=== PATIENT | female | born 1970 | race American Indian/Alaskan Native ===

== ENCOUNTER 2017-02-24 19:34 | Emergency (ER) | payer MEDICAID ==
[2017-02-24 19:44] VITALS: BP 156/92
[2017-02-24] MEDS ORDERED: Ketorolac 30 MG/ML SDV IM ONE (19:56)
[2017-02-24 20:07] LABS: CHLORIDE,CL 100 mmol/L (98-109); SODIUM,NA 142 mmol/L (138-146)
--- NOTE | 2017-02-24 20:07 | EDM.PDOC ---
ED HPI GENERAL MEDICAL PROBLEM - General Chief Complaint: Back Pain or Injury Stated Complaint: BACK AND NECK PAIN Time Seen by Provider: 02/24/17 19:45 Source of Information: Reports: Patient History Limitations: Reports: No Limitations - History of Present Illness INITIAL COMMENTS - FREE TEXT/NARRATIVE: This 46 yo female patient reports to the ED with increased lower back pain. The patient reports her back pain increased on Wednesday and has been getting worse. The patient has been taking her Hydrocodone (last dose 10 hours ago), gabapentin and muscle relaxer with no symptom relief. The patient reports her pain is 10/10 radiating to both lower extremities and up her spine to her neck. The patient reports she attempted to get into her primary provider, but could not get in until next week. Onset Date: 02/20/17 Duration: Constant, Getting Worse Location: Reports: Lower Extremity, Right, Radiates to (legs and upper back) Quality: Reports: Ache, Sharp Severity: Severe Improves with: Reports: None Worsens with: Reports: Movement Context: Reports: Other Associated Symptoms: Reports: No Other Symptoms Treatments [employer]ELOPMENT: Reports: Other Medication(s) Lower Back Pain Score (Numeric/FACES): 10 - Related Data Allergies Allergy/AdvReac Type Severity Reaction Status Date / Time levonorgestrel Allergy Cannot Verified 02/24/17 19:43 Remember mint chocolate chip flavor Allergy Swelling Uncoded 02/24/17 19:43 seasonal Allergy Cannot Uncoded 02/24/17 19:43 Remember Home Meds: Home Meds Insulin Glarg,Human.Rec.Analog [Lantus Solostar] 43 units SQ BID 10/26/13 [ History] Acetaminophen [Tylenol Extra Strength] 1,000 mg PO Q6H PRN 11/17/14 [History] Albuterol [Proventil] 3 ml INH QID PRN 11/17/14 [History] Albuterol/Ipratropium [Combivent] 1 puff INH Q4H PRN 11/17/14 [History] Aspirin 325 mg PO DAILY 11/17/14 [History] Budesonide/Formoterol [Symbicort 80-4.5 MCG] 2 puff INH DAILY 11/17/14 [History] EPINEPHrine [Epipen] 0.3 ml SUBCUT ASDIRECTED PRN 11/17/14 [History] Fluticasone Propionate [Flonase] 2 sprays NASBOTH DAILY 11/17/14 [History] Ibuprofen 800 mg PO ASDIRECTED PRN 11/17/14 [History] Insulin Lispro [HumaLOG] 2 units SUBCUT ASDIRECTED PRN 11/17/14 [History] Lactobacillus Acidophilus [Probiotic] 1 tab PO DAILY 11/17/14 [History] Pantoprazole [Protonix] 40 mg PO DAILY 11/17/14 [History] tiZANidine [Zanaflex] 4 mg PO Q8HR PRN 02/20/15 [History] DULoxetine [Cymbalta] 120 mg PO DAILY 08/01/15 [History] Gabapentin [Neurontin] 400 mg PO TID 08/01/15 [History] Pravastatin [Pravachol] 20 mg PO BEDTIME 08/01/15 [History] buPROPion [Wellbutrin] 50 mg PO BID 08/01/15 [History] Hydrocodone/Acetaminophen [Hydrocodon-Acetaminophen 5-325] 1 tab PO Q6HR PRN [History] Zolpidem [Ambien] 1 tab PO BEDTIME PRN 12/15/15 [History] metFORMIN [Glucophage XR] 1,000 mg PO BIDAC 12/15/15 [History] Liraglutide [Victoza] 1.2 mg SUBCUT DAILY 03/16/16 [History] Past Medical History HEENT History: Reports: Impaired Vision Cardiovascular History: Reports: High Cholesterol, Hypertension, [place] Respiratory History: Reports: COPD, Sleep Apnea Other Respiratory History: uses c-pap at home. 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 Musculoskeletal History: Reports: Arthritis, Back Pain, Chronic, Other (See Below) Other Musculoskeletal History: Neck and back Neurological History: Reports: CVA, Migraines, Neuropathy, Diabetic Psychiatric History: Reports: Anxiety, Depression, Panic Attack, Suicide Attempt Endocrine/Metabolic History: Reports: Diabetes, Type II, Obesity/BMI 30+ Hematologic History: Reports: Anemia - Infectious Disease History Infectious Disease History: Reports: MRSA - Past Surgical History Female Surgical History: Reports: D&C Social & Family History - Tobacco Use Smoking Status *Q: Never Smoker Years of Tobacco use: 23 Used Tobacco, but Quit: No Second Hand Smoke Exposure: No - Caffeine Use Caffeine Use: Reports: Coffee - Alcohol Use Days Per Week of Alcohol Use: 0 - Recreational Drug Use Recreational Drug Use: No Drug Use in Last 12 Months: Yes Recreational Drug Type: Reports: Benzodiazepines ED ROS GENERAL - Review of Systems Review Of Systems: ROS reveals no pertinent complaints other than HPI. ED EXAM,LOWER BACK PAIN/INJURY - Physical Exam Exam: See Below Exam Limited By: No Limitations General Appearance: Alert, WD/WN, Moderate Distress, Obese (morbid obesity) Eye Exam: Bilateral Eye: EOMI, Normal Inspection, PERRL Ears: Normal External Exam, Normal Canal, Hearing Grossly Normal, Normal TMs Nose: Normal Inspection, Normal Mucosa, No Blood Throat/Mouth: Normal Inspection, Normal Lips, Normal Teeth, Normal Gums, Normal Oropharynx, Normal Voice, No Airway Compromise Head: Atraumatic, Normocephalic Neck: Normal Inspection, Supple, Non-Tender, Full Range of Motion Respiratory/Chest: No Respiratory Distress, Lungs Clear, Normal Breath Sounds, No Accessory Muscle Use, Chest Non-Tender Cardiovascular: Normal Peripheral Pulses, Regular Rate, Rhythm, No Edema, No Gallop, No JVD, No Murmur, No Rub GI/Abdominal: Normal Bowel Sounds, Soft, Non-Tender, No Organomegaly, No Abnormal Bruit, No Mass, Pelvis Stable, Distended, Other (morbid obesity) (Female) Exam: Deferred Rectal (Female) Exam: Deferred Back Exam: Normal Inspection, Full Range of Motion, NT Extremities: Normal Inspection Neurological: Alert, Normal Mood/Affect, Normal Dorsiflexion, CN II-XII Intact, Normal Plantar Flexion, Normal Gait, Normal Reflexes, No Motor/Sensory Deficits , Oriented x 3 Psychiatric: Normal Affect, Normal Mood Skin Exam: Warm, Dry, Intact, Normal Color, No Rash Lymphatic: No Adenopathy Course - Vital Signs Last Recorded V/S: Last Vital Signs Temp 36.7 C 02/24/17 19:43 Pulse 103 H 02/24/17 19:43 Resp 24 H 02/24/17 19:43 BP 156/92 H 02/24/17 19:43 Pulse Ox 96 02/24/17 19:43 - Orders/Labs/Meds Orders: Active Orders 24 hr Category Date Time Status Orphenadrine [Norflex] Med 02/24/17 20:00 Active 60 mg IM Q12H Medication Orders Orphenadrine Citrate (Norflex) 60 mg IM Q12H DARRELL Last Admin: 02/24/17 20:07 Dose: 60 mg Labs: Laboratory Tests 02/24/17 02/24/17 02/24/17 Range/Units 19:57 19:57 21:24 WBC 9.3 (5.0-10.0) 10^3/uL RBC 3.70 L (4.2-5.4) 10^6/uL Hgb 9.6 L (12.0-16.0) g/dL Hct 31.5 L (37.0-47.0) % MCV 85.1 (80-100) fL MCH 25.9 L (27.0-34.0) pg MCHC 30.5 L (33.0-35.0) g/dL Plt Count 310 (150-450) 10^3/uL Neut % (Auto) 63.6 (42.2-75.2) % Lymph % (Auto) 28.2 (20.5-50.1) % [place] % (Auto) 6.7 (2-8) % Eos % (Auto) 1.3 (1.0-3.0) % Baso % (Auto) 0.2 (0.0-1.0) % Sodium 142 (138-146) mmol/L Potassium 3.7 (3.5-4.9) mmol/L Chloride 100 (98-109) mmol/L Carbon Dioxide 27 (24-29) mmol/L Anion Gap 18.7 BUN 7 L (8-26) mg/dL Creatinine 0.5 L (0.6-1.3) mg/dL Est Cr Clr Drug Dosing 110.01 mL/min Estimated GFR (MDRD) > 60 Glucose 128 H (70-105) mg/dL Calcium 1.1 Urine Color (YELLOW) Urine Appearance (CLEAR) Urine pH (5.0-9.0) Ur Specific [place] (1.005-1.030) Urine Protein (NEGATIVE) Urine Glucose (UA) (NEGATIVE) Urine Ketones (NEGATIVE) Urine Occult Blood (NEGATIVE) Urine Nitrite (NEGATIVE) Urine Bilirubin (NEGATIVE) Urine Urobilinogen (0.2-1.0) mg/dL Ur Leukocyte Esterase (NEGATIVE) Urine RBC /HPF Urine WBC (0-5/HPF) /HPF Ur Epithelial Cells /HPF Urine Bacteria (0-FEW/HPF) /HPF Urine Opiates Screen Negative (NEGATIVE) Ur Oxycodone Screen Negative (NEGATIVE) Urine Methadone Screen Negative (NEGATIVE) Ur Barbiturates Screen Negative (NEGATIVE) U Tricyclic Antidepress Negative (NEGATIVE) Ur Phencyclidine Scrn Negative (NEGATIVE) Ur Amphetamine Screen Negative (NEGATIVE) U Methamphetamines Scrn Negative (NEGATIVE) Urine MDMA Screen Negative (NEGATIVE) U Benzodiazepines Scrn Negative (NEGATIVE) Urine Cocaine Screen Negative (NEGATIVE) U Marijuana (THC) Screen Negative (NEGATIVE) 02/24/17 Range/Units 21:24 WBC (5.0-10.0) 10^3/uL RBC (4.2-5.4) 10^6/uL Hgb (12.0-16.0) g/dL Hct (37.0-47.0) % MCV (80-100) fL MCH (27.0-34.0) pg MCHC (33.0-35.0) g/dL Plt Count (150-450) 10^3/uL Neut % (Auto) (42.2-75.2) % Lymph % (Auto) (20.5-50.1) % [place] % (Auto) (2-8) % Eos % (Auto) (1.0-3.0) % Baso % (Auto) (0.0-1.0) % Sodium (138-146) mmol/L Potassium (3.5-4.9) mmol/L Chloride (98-109) mmol/L Carbon Dioxide (24-29) mmol/L Anion Gap BUN (8-26) mg/dL Creatinine (0.6-1.3) mg/dL Est Cr Clr Drug Dosing mL/min Estimated GFR (MDRD) Glucose (70-105) mg/dL Calcium Urine Color Yellow (YELLOW) Urine Appearance Clear (CLEAR) Urine pH 7.0 (5.0-9.0) Ur Specific [place] 1.015 (1.005-1.030) Urine Protein Negative (NEGATIVE) Urine Glucose (UA) Negative (NEGATIVE) Urine Ketones Negative (NEGATIVE) Urine Occult Blood Negative (NEGATIVE) Urine Nitrite Negative (NEGATIVE) Urine Bilirubin Negative (NEGATIVE) Urine Urobilinogen 0.2 (0.2-1.0) mg/dL Ur Leukocyte Esterase Negative (NEGATIVE) Urine RBC 0-5 /HPF Urine WBC 0-5 (0-5/HPF) /HPF Ur Epithelial Cells Many H /HPF Urine Bacteria Moderate H (0-FEW/HPF) /HPF Urine Opiates Screen (NEGATIVE) Ur Oxycodone Screen (NEGATIVE) Urine Methadone Screen (NEGATIVE) Ur Barbiturates Screen (NEGATIVE) U Tricyclic Antidepress (NEGATIVE) Ur Phencyclidine Scrn (NEGATIVE) Ur Amphetamine Screen (NEGATIVE) U Methamphetamines Scrn (NEGATIVE) Urine MDMA Screen (NEGATIVE) U Benzodiazepines Scrn (NEGATIVE) Urine Cocaine Screen (NEGATIVE) U Marijuana (THC) Screen (NEGATIVE) Meds: Medications Generic Name Dose Route Start Last Admin Trade Name Freq PRN Reason Stop Dose Admin Orphenadrine Citrate 60 mg 02/24/17 20:00 02/24/17 20:07 Norflex IM 60 mg Q12H DARRELL Administration Discontinued Medications Generic Name Dose Route Start Last Admin Trade Name Freq PRN Reason Stop Dose Admin Hydromorphone HCl 0.5 mg 02/24/17 21:46 Dilaudid IVPUSH 02/24/17 21:47 ONETIME ONE Ketorolac Tromethamine 60 mg 02/24/17 19:56 02/24/17 20:06 Toradol IM 02/24/17 19:57 60 mg ONETIME ONE Administration Departure - Departure Time of Disposition: 21:55 Disposition: Home, Self-Care 01 Condition: Fair Clinical Impression: Chronic back pain - Discharge Information Forms: ED Department Discharge Care Plan Goals: The patient was advised of the examination and lab results during the visit. The patient was given injections of Toradol, Norflex and Dilaudid while in the ED. The patient was encouraged to take her medications as prescribed. If the patient has any additional symptoms or concerns, the patient should follow-up with her primary care facility or return to the emergency department. - My Orders Last 24 Hours: My Active Orders 02/24/17 20:00 Orphenadrine [Norflex] 60 mg IM Q12H - Assessment/Plan Last 24 Hours: My Active Orders 02/24/17 20:00 Orphenadrine [Norflex] 60 mg IM Q12H
[2017-02-24] MEDS ORDERED: HYDROmorphone 1 MG/ML Syringe IVPUSH ONE (21:46)
== END 2017-02-24 22:12 | disposition home or self-care (01) ==
LOC: DL.ED 19:34
DX: G89.29 Other chronic pain (principal); M54.5 Low back pain; H54.7 Unspecified visual loss; E78.00 Pure hypercholesterolemia, unspecified; I25.2 Old myocardial infarction; J44.9 Chronic obstructive pulmonary disease, unspecified; I10 Essential (primary) hypertension; K21.9 Gastro-esophageal reflux disease without esophagitis; M19.90 Unspecified osteoarthritis, unspecified site; G43.909 Migraine, unspecified, not intractable, without status migrainosus; E11.40 Type 2 diabetes mellitus with diabetic neuropathy, unspecified; F32.9 Major depressive disorder, single episode, unspecified; D64.9 Anemia, unspecified; F41.9 Anxiety disorder, unspecified; E66.9 Obesity, unspecified; Z88.8 Allergy status to other drugs, medicaments and biological substances; Z79.4 Long term (current) use of insulin; Z79.84 Long term (current) use of oral hypoglycemic drugs; Z86.73 Personal history of transient ischemic attack (TIA), and cerebral infarction without residual deficits; Z68.38 Body mass index [BMI] 38.0-38.9, adult
CPT/HCPCS: 36415; 80048; 80305; 81001; 85025; 96372; 96374; 99283; J1170; J1885; J2360

== ENCOUNTER 2017-04-09 21:00 | Emergency (ER) | payer MEDICAID ==
[2017-04-09 21:10] VITALS: BP 151/94
--- NOTE | 2017-04-09 22:04 | EDM.PDOC ---
ED HPI GENERAL MEDICAL PROBLEM - General Chief Complaint: Abdominal Pain Stated Complaint: JUST NOT FEELING RIGHT, [id number] Time Seen by Provider: 04/09/17 22:00 Source of Information: Reports: Patient History Limitations: Reports: No Limitations - History of Present Illness INITIAL COMMENTS - FREE TEXT/NARRATIVE: s/p appy last week got home wednesday then wednesday became weak no energy feels dizzy no appetite but did eat some chille tonight ok. been having BM. worried about infections and being anemic. Right Lower Abdomen Pain Score (Numeric/FACES): 10 - Related Data Allergies Allergy/AdvReac Type Severity Reaction Status Date / Time levonorgestrel Allergy Cannot Verified 04/09/17 21:10 Remember trazodone Allergy Swelling Verified 04/09/17 21:10 mint chocolate chip flavor Allergy Swelling Uncoded 04/09/17 21:10 seasonal Allergy Cannot Uncoded 04/09/17 21:10 Remember Home Meds: Home Meds Insulin Glarg,Human.Rec.Analog [Lantus Solostar] 43 units SQ BID 10/26/13 [ History] Acetaminophen [Tylenol Extra Strength] 1,000 mg PO Q6H PRN 11/17/14 [History] Albuterol [Proventil] 3 ml INH QID PRN 11/17/14 [History] Albuterol/Ipratropium [Combivent] 1 puff INH Q4H PRN 11/17/14 [History] Aspirin 325 mg PO DAILY 11/17/14 [History] Budesonide/Formoterol [Symbicort 80-4.5 MCG] 2 puff INH DAILY 11/17/14 [History] EPINEPHrine [Epipen] 0.3 ml SUBCUT ASDIRECTED PRN 11/17/14 [History] Fluticasone Propionate [Flonase] 2 sprays NASBOTH DAILY 11/17/14 [History] Ibuprofen 800 mg PO ASDIRECTED PRN 11/17/14 [History] Insulin Lispro [HumaLOG] 2 units SUBCUT ASDIRECTED PRN 11/17/14 [History] Lactobacillus Acidophilus [Probiotic] 1 tab PO DAILY 11/17/14 [History] Pantoprazole [Protonix] 40 mg PO DAILY 11/17/14 [History] tiZANidine [Zanaflex] 4 mg PO Q8HR PRN 02/20/15 [History] DULoxetine [Cymbalta] 120 mg PO DAILY 08/01/15 [History] Gabapentin [Neurontin] 400 mg PO TID 08/01/15 [History] Pravastatin [Pravachol] 20 mg PO BEDTIME 08/01/15 [History] buPROPion [Wellbutrin] 50 mg PO BID 08/01/15 [History] Hydrocodone/Acetaminophen [Hydrocodon-Acetaminophen 5-325] 1 tab PO Q6HR PRN [History] Zolpidem [Ambien] 1 tab PO BEDTIME PRN 12/15/15 [History] metFORMIN [Glucophage XR] 1,000 mg PO BIDAC 12/15/15 [History] Liraglutide [Victoza] 1.2 mg SUBCUT DAILY 03/16/16 [History] Past Medical History HEENT History: Reports: Impaired Vision Cardiovascular History: Reports: High Cholesterol, Hypertension, [place] Respiratory History: Reports: COPD, Sleep Apnea Other Respiratory History: uses c-pap at home. 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 Musculoskeletal History: Reports: Arthritis, Back Pain, Chronic, Other (See Below) Other Musculoskeletal History: Neck and back Neurological History: Reports: CVA, Migraines, Neuropathy, Diabetic Psychiatric History: Reports: Anxiety, Depression, Panic Attack, Suicide Attempt Endocrine/Metabolic History: Reports: Diabetes, Type II, Obesity/BMI 30+ Hematologic History: Reports: Anemia - Infectious Disease History Infectious Disease History: Reports: MRSA - Past Surgical History GI Surgical History: Reports: Appendectomy Female Surgical History: Reports: D&C Social & Family History - Tobacco Use Smoking Status *Q: Never Smoker Years of Tobacco use: 23 Used Tobacco, but Quit: No Second Hand Smoke Exposure: No - Caffeine Use Caffeine Use: Reports: Coffee - Alcohol Use Days Per Week of Alcohol Use: 0 - Recreational Drug Use Recreational Drug Use: No Drug Use in Last 12 Months: Yes Recreational Drug Type: Reports: Benzodiazepines ED ROS GENERAL - Review of Systems Review Of Systems: ROS reveals no pertinent complaints other than HPI. ED EXAM, GI/ABD - Physical Exam Exam: See Below Exam Limited By: No Limitations General Appearance: Alert, WD/WN, Mild Distress, Other (distraught) Ears: Hearing Grossly Normal Throat/Mouth: Normal Voice, No Airway Compromise Head: Atraumatic Neck: Non-Tender, Full Range of Motion Respiratory/Chest: No Respiratory Distress Cardiovascular: Regular Rate, Rhythm GI/Abdominal Exam: Soft, Tender, Other (minimal periumb discomfort, surgical sites without s/s infection). No: Guarding, Rigid, Rebound Neurological: Alert, Oriented, Normal Cognition, Normal Gait, No Motor/Sensory Deficits Psychiatric: Flat Affect Skin Exam: Warm, Dry, Normal Color Lymphatic: No Adenopathy Course - Vital Signs Last Recorded V/S: Last Vital Signs Temp 36.6 C 04/09/17 21:05 Pulse 104 H 04/09/17 21:05 Resp 18 04/09/17 21:05 BP 151/94 H 04/09/17 21:05 Pulse Ox 99 04/09/17 21:05 - Orders/Labs/Meds Orders: Active Orders 24 hr Category Date Time Status Blood Glucose Check, Bedside [RC] ONETIME Care 04/09/17 21:26 Active CULTURE BLOOD [BC] Stat Lab 04/09/17 22:12 Received Labs: Laboratory Tests 04/09/17 04/09/17 04/09/17 Range/Units 21:28 22:12 22:12 WBC 8.2 (5.0-10.0) 10^3/uL RBC 3.71 L (4.2-5.4) 10^6/uL Hgb 9.4 L (12.0-16.0) g/dL Hct 31.4 L (37.0-47.0) % MCV 84.6 (80-100) fL MCH 25.3 L (27.0-34.0) pg MCHC 29.9 L (33.0-35.0) g/dL Plt Count 373 (150-450) 10^3/uL Neut % (Auto) 62.5 (42.2-75.2) % Lymph % (Auto) 30.9 (20.5-50.1) % [place] % (Auto) 4.7 (2-8) % Eos % (Auto) 1.5 (1.0-3.0) % Baso % (Auto) 0.4 (0.0-1.0) % Sodium (135-145) mmol/L Potassium (3.6-5.0) mmol/L Chloride (101-111) mmol/L Carbon Dioxide (21.0-31.0) mmol/L Anion Gap BUN (7-18) mg/dL Creatinine (0.6-1.3) mg/dL Est Cr Clr Drug Dosing mL/min Estimated GFR (MDRD) BUN/Creatinine Ratio Glucose (74-105) mg/dL POC Glucose 96 (70-105) mg/dl Lactic Acid 1.7 (0.5-2.2) mmol/L Calcium (8.4-10.2) mg/dl Total Bilirubin (0.2-1.0) mg/dL AST (10-42) IU/L ALT (10-60) IU/L Alkaline Phosphatase (42-121) IU/L Total Protein (6.7-8.2) g/dl Albumin (3.2-5.5) g/dl Globulin Albumin/Globulin Ratio 08/18/17 Range/Units 22:12 WBC (5.0-10.0) 10^3/uL RBC (4.2-5.4) 10^6/uL Hgb (12.0-16.0) g/dL Hct (37.0-47.0) % MCV (80-100) fL MCH (27.0-34.0) pg MCHC (33.0-35.0) g/dL Plt Count (150-450) 10^3/uL Neut % (Auto) (42.2-75.2) % Lymph % (Auto) (20.5-50.1) % [place] % (Auto) (2-8) % Eos % (Auto) (1.0-3.0) % Baso % (Auto) (0.0-1.0) % Sodium 142 (135-145) mmol/L Potassium 3.2 L (3.6-5.0) mmol/L Chloride 107 (101-111) mmol/L Carbon Dioxide 23.0 (21.0-31.0) mmol/L Anion Gap 15.2 BUN 8 (7-18) mg/dL Creatinine 0.6 (0.6-1.3) mg/dL Est Cr Clr Drug Dosing 91.68 mL/min Estimated GFR (MDRD) > 60 BUN/Creatinine Ratio 13.33 Glucose 124 H (74-105) mg/dL POC Glucose (70-105) mg/dl Lactic Acid (0.5-2.2) mmol/L Calcium 8.6 (8.4-10.2) mg/dl Total Bilirubin 0.3 (0.2-1.0) mg/dL AST 18 (10-42) IU/L ALT 11 (10-60) IU/L Alkaline Phosphatase 79 (42-121) IU/L Total Protein 7.7 (6.7-8.2) g/dl Albumin 3.2 (3.2-5.5) g/dl Globulin 4.5 Albumin/Globulin Ratio 0.71 - Re-Assessments/Exams Free Text/Narrative Re-Assessment/Exam: 04/09/17 23:02 results discussed with pt. who states been on solid foods 3rd day post-op. Departure - Departure Time of Disposition: 23:03 Disposition: Home, Self-Care 01 Condition: Good Clinical Impression: Abdominal pain Qualifiers: Abdominal location: right lower quadrant Qualified Code(s): R10.31 - Right lower quadrant pain - Discharge Information Instructions: Abdominal Pain, Adult, [id number] Forms: ED Department Discharge Additional Instructions: 1) avoid solid foods next 48 hours 2) notify surgeon Wednesday or recheck if there is any change or concern - My Orders Last 24 Hours: My Active Orders 04/09/17 21:26 Blood Glucose Check, Bedside [RC] ONETIME 04/09/17 22:12 CULTURE BLOOD [BC] Stat - Assessment/Plan Last 24 Hours: My Active Orders 04/09/17 21:26 Blood Glucose Check, Bedside [RC] ONETIME 04/09/17 22:12 CULTURE BLOOD [BC] Stat
[2017-04-09 22:38] LABS: CHLORIDE,CL 107 mmol/L (101-111); SODIUM,NA 142 mmol/L (135-145)
== END 2017-04-09 23:25 | disposition home or self-care (01) ==
LOC: DL.ED 21:00
DX: R10.31 Right lower quadrant pain (principal); H54.7 Unspecified visual loss; E78.00 Pure hypercholesterolemia, unspecified; I25.2 Old myocardial infarction; K21.9 Gastro-esophageal reflux disease without esophagitis; J44.9 Chronic obstructive pulmonary disease, unspecified; E11.9 Type 2 diabetes mellitus without complications; F41.9 Anxiety disorder, unspecified; F32.9 Major depressive disorder, single episode, unspecified; G43.909 Migraine, unspecified, not intractable, without status migrainosus; E66.9 Obesity, unspecified; E11.40 Type 2 diabetes mellitus with diabetic neuropathy, unspecified; Z90.49 Acquired absence of other specified parts of digestive tract; Z88.8 Allergy status to other drugs, medicaments and biological substances; Z79.4 Long term (current) use of insulin; Z79.899 Other long term (current) drug therapy; Z86.73 Personal history of transient ischemic attack (TIA), and cerebral infarction without residual deficits
CPT/HCPCS: 36415; 80053; 82962; 83605; 85025; 87040; 99284

== ENCOUNTER 2017-09-08 20:37 | Emergency (ER) | payer MEDICAID, OTHER ==
[2017-09-08] MEDS ORDERED: Sodium Chloride 0.9% 10 ML Syringe FLUSH PRN (20:46)
[2017-09-08] MEDS: Labetalol 20 MG/4 ML Syringe IVPUSH ONE ×2 (20:48→21:22)
[2017-09-08] MEDS ORDERED: Labetalol 20 MG/4 ML Syringe ONE (20:48)
[2017-09-08 21:19] LABS: CHLORIDE,CL 103 mmol/L (101-111); SODIUM,NA 139 mmol/L (135-145)
[2017-09-08 21:21] VITALS: BP 146/87
[2017-09-08 21:23] LABS: ACETAMINOPHEN < 10
--- NOTE | 2017-09-08 22:03 | EDM.PDOC ---
ED HPI GENERAL MEDICAL PROBLEM - General Chief Complaint: Neurological Problem Stated Complaint: OD ON PILLS Time Seen by Provider: 09/08/17 20:43 Source of Information: Reports: EMS, Family History Limitations: Reports: Altered Mental Status - History of Present Illness INITIAL COMMENTS - FREE TEXT/NARRATIVE: patient is brought to the emergency department today due to concerns of left- sided weakness as well as a possible overdose on her prazosin. History of illness from the patient is rather unable to be obtained as she has almost no verbal response. Speaking with the daughters the patient was last known well at approximately 1600 hrs. At that time that only discussed how the patient was feeling over the phone and it did not visually see her. Patient complained of the daughters at that time of not feeling right and the headache. The daughters came home to find her sleeping in the bed approximately 1800 hrs. and went to check on her approximate hour and a half later and had a difficult time waking her. When she did wake they noted that she was not able to move her left side of her body and she was somewhat confused. She did take an extra tablet of her prazosin and she did not remember if she had taken it before. We are unsure if there is been any recent falls or trauma to the head. Patient is really only able to answer minimal yes and no questions. And her answers are inconsistent. - Related Data Allergies Allergy/AdvReac Type Severity Reaction Status Date / Time levonorgestrel Allergy Cannot Verified 09/08/17 21:21 Remember trazodone Allergy Swelling Verified 09/08/17 21:21 mint chocolate chip flavor Allergy Swelling Uncoded 09/08/17 21:21 seasonal Allergy Cannot Uncoded 09/08/17 21:21 Remember Home Meds: Home Meds Insulin Glarg,Human.Rec.Analog [Lantus Solostar] 43 units SQ BID 10/26/13 [ History] Acetaminophen [Tylenol Extra Strength] 1,000 mg PO Q6H PRN 11/17/14 [History] Albuterol [Proventil] 3 ml INH QID PRN 11/17/14 [History] Albuterol/Ipratropium [Combivent] 1 puff INH Q4H PRN 11/17/14 [History] Aspirin 325 mg PO DAILY 11/17/14 [History] Budesonide/Formoterol [Symbicort 80-4.5 MCG] 2 puff INH DAILY 11/17/14 [History] EPINEPHrine [Epipen] 0.3 ml SUBCUT ASDIRECTED PRN 11/17/14 [History] Fluticasone Propionate [Flonase] 2 sprays NASBOTH DAILY 11/17/14 [History] Ibuprofen 800 mg PO ASDIRECTED PRN 11/17/14 [History] Insulin Lispro [HumaLOG] 2 units SUBCUT ASDIRECTED PRN 11/17/14 [History] Lactobacillus Acidophilus [Probiotic] 1 tab PO DAILY 11/17/14 [History] Pantoprazole [Protonix] 40 mg PO DAILY 11/17/14 [History] tiZANidine [Zanaflex] 4 mg PO Q8HR PRN 02/20/15 [History] DULoxetine [Cymbalta] 120 mg PO DAILY 08/01/15 [History] Gabapentin [Neurontin] 400 mg PO TID 08/01/15 [History] Pravastatin [Pravachol] 20 mg PO BEDTIME 08/01/15 [History] buPROPion [Wellbutrin] 50 mg PO BID 08/01/15 [History] Hydrocodone/Acetaminophen [Hydrocodon-Acetaminophen 5-325] 1 tab PO Q6HR PRN [History] Zolpidem [Ambien] 1 tab PO BEDTIME PRN 12/15/15 [History] metFORMIN [Glucophage XR] 1,000 mg PO BIDAC 12/15/15 [History] Liraglutide [Victoza] 1.2 mg SUBCUT DAILY 03/16/16 [History] Past Medical History HEENT History: Reports: Impaired Vision Cardiovascular History: Reports: High Cholesterol, Hypertension, [place] Respiratory History: Reports: COPD, Sleep Apnea Other Respiratory History: uses c-pap at home. 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 Musculoskeletal History: Reports: Arthritis, Back Pain, Chronic, Other (See Below) Other Musculoskeletal History: Neck and back Neurological History: Reports: CVA, Migraines, Neuropathy, Diabetic Psychiatric History: Reports: Anxiety, Depression, Panic Attack, Suicide Attempt Endocrine/Metabolic History: Reports: Diabetes, Type II, Obesity/BMI 30+ Hematologic History: Reports: Anemia - Infectious Disease History Infectious Disease History: Reports: MRSA - Past Surgical History GI Surgical History: Reports: Appendectomy Female Surgical History: Reports: D&C Social & Family History - Tobacco Use Smoking Status *Q: Unknown Ever Smoked Years of Tobacco use: 23 Used Tobacco, but Quit: No Second Hand Smoke Exposure: No - Caffeine Use Caffeine Use: Reports: Coffee - Alcohol Use Days Per Week of Alcohol Use: 0 - Recreational Drug Use Recreational Drug Use: No Drug Use in Last 12 Months: Yes Recreational Drug Type: Reports: Benzodiazepines ED ROS GENERAL - Review of Systems Review Of Systems: Unable To Obtain ED EXAM, NEURO - Physical Exam Exam: See Below Text/Narrative:: there is no spontaneous movement of the left upper extremity or the left lower extremity. She does not respond to painful stimulation on the left side of her body to include her face abdomen chest left upper extremity left lower extremity. She does have spontaneous movement of the right upper and right lower extremity. Her head is atraumatic. Exam Limited By: Altered Mental Status General Appearance: Alert, WD/WN Eye Exam: Bilateral Eye: EOMI (with a lot of coaxing she was able to move her eyes throughout the field of vision.), Normal Inspection, PERRL (3) Ears: Normal External Exam, Normal Canal Nose: Normal Inspection, Normal Mucosa Throat/Mouth: Normal Inspection, Normal Oropharynx Head Exam: Atraumatic, Normocephalic Neck: Normal Inspection, Supple, Non-Tender, Full Range of Motion Respiratory/Chest: No Respiratory Distress, Lungs Clear, Normal Breath Sounds, No Accessory Muscle Use Cardiovascular: Normal Peripheral Pulses, Regular Rate, Rhythm GI/Abdominal: Normal Bowel Sounds, Soft, Non-Tender (Female) Exam: Deferred Rectal (Female) Exam: Deferred Neurological: Alert, Ataxia, Abnormal Sensation (left upper and left lower extremity), Abnormal Motor (no spontaneous movement or painful response the left upper and left lower extremity.), Other (right upper and right lower extremity 5/5 without ataxia strong to command. Left upper and left lower extremityspontaneous movement. With painful stimulation of the left upper and left lower extremity the patient does not withdraw nor move or complain of pain as she does on the right side of her body. Her speech is rather intermittent somewhat garbled. Question left facial droop. She consistently asked for her daughter but does not really answer any orientation questions.). No: No Motor/ Sensory Deficits Back Exam: Normal Inspection Extremities: Normal Inspection, Non-Tender Psychiatric: Anxious Skin Exam: Warm, Dry, Intact, Normal Color EKG INTERPRETATION EKG Date: 09/08/17 Time: 20:41 Rhythm: NSR Rate (Beats/Min): 47 Freeman: Normal P-Wave: Present QRS: Normal ST-T: Normal QT: Normal Comparison: NA - No Prior EKG Course - Vital Signs Last Recorded V/S: Last Vital Signs Temp 36.7 C 09/08/17 21:18 Pulse 92 09/08/17 21:18 Resp 26 H 09/08/17 21:18 BP 146/87 H 09/08/17 21:18 Pulse Ox 97 09/08/17 21:18 - Orders/Labs/Meds Orders: Active Orders 24 hr Category Date Time Status EKG 12 Lead [EKG Documentation Completion] [RC] URGENT Care 09/08/17 20:46 Active Peripheral IV Care [RC] . DIRECTED Care 09/08/17 20:46 Active Peripheral IV Insertion Adult [OM.PC] Stat Oth 09/08/17 20:46 Ordered Labs: Laboratory Tests 09/08/17 09/08/17 09/08/17 Range/Units 20:45 20:45 20:45 WBC 10.3 H (5.0-10.0) 10^3/uL RBC 3.88 L (4.2-5.4) 10^6/uL Hgb 10.2 L (12.0-16.0) g/dL Hct 32.9 L (37.0-47.0) % MCV 84.8 (80-100) fL MCH 26.3 L (27.0-34.0) pg MCHC 31.0 L (33.0-35.0) g/dL Plt Count 376 (150-450) 10^3/uL Neut % (Auto) 64.8 (42.2-75.2) % Lymph % (Auto) 27.2 (20.5-50.1) % Ada % (Auto) 6.1 (2-8) % Eos % (Auto) 1.6 (1.0-3.0) % Baso % (Auto) 0.3 (0.0-1.0) % Sodium 139 (135-145) mmol/L Potassium 3.5 L (3.6-5.0) mmol/L Chloride 103 (101-111) mmol/L Carbon Dioxide 30.0 (21.0-31.0) mmol/L Anion Gap 9.5 BUN 10 (7-18) mg/dL Creatinine 0.7 (0.6-1.3) mg/dL Est Cr Clr Drug Dosing TNP Estimated GFR (MDRD) > 60 BUN/Creatinine Ratio 14.28 Glucose 144 H (74-105) mg/dL POC Glucose (70-105) mg/dl Lactic Acid 1.3 (0.5-2.2) mmol/L Calcium 9.6 (8.4-10.2) mg/dl Total Bilirubin 0.3 (0.2-1.0) mg/dL AST 24 (10-42) IU/L ALT 16 (10-60) IU/L Alkaline Phosphatase 83 (42-121) IU/L Troponin I < 0.02 (0.00-0.02) ng/ml C-Reactive Protein (0.0-1.3) mg/dL Total Protein 8.3 H (6.7-8.2) g/dl Albumin 3.6 (3.2-5.5) g/dl Globulin 4.7 Albumin/Globulin Ratio 0.77 Salicylates Acetaminophen 09/08/17 09/08/17 09/08/17 Range/Units 20:45 20:45 21:09 WBC (5.0-10.0) 10^3/uL RBC (4.2-5.4) 10^6/uL Hgb (12.0-16.0) g/dL Hct (37.0-47.0) % MCV (80-100) fL MCH (27.0-34.0) pg MCHC (33.0-35.0) g/dL Plt Count (150-450) 10^3/uL Neut % (Auto) (42.2-75.2) % Lymph % (Auto) (20.5-50.1) % Ada % (Auto) (2-8) % Eos % (Auto) (1.0-3.0) % Baso % (Auto) (0.0-1.0) % Sodium (135-145) mmol/L Potassium (3.6-5.0) mmol/L Chloride (101-111) mmol/L Carbon Dioxide (21.0-31.0) mmol/L Anion Gap BUN (7-18) mg/dL Creatinine (0.6-1.3) mg/dL Est Cr Clr Drug Dosing Estimated GFR (MDRD) BUN/Creatinine Ratio Glucose (74-105) mg/dL POC Glucose 131 H (70-105) mg/dl Lactic Acid (0.5-2.2) mmol/L Calcium (8.4-10.2) mg/dl Total Bilirubin (0.2-1.0) mg/dL AST (10-42) IU/L ALT (10-60) IU/L Alkaline Phosphatase (42-121) IU/L Troponin I (0.00-0.02) ng/ml C-Reactive Protein 4.9 H (0.0-1.3) mg/dL Total Protein (6.7-8.2) g/dl Albumin (3.2-5.5) g/dl Globulin Albumin/Globulin Ratio Salicylates < 4 Acetaminophen < 10 Meds: Medications Discontinued Medications Generic Name Dose Route Start Last Admin Trade Name Freq PRN Reason Stop Dose Admin Labetalol HCl 20 mg 09/08/17 20:45 09/08/17 21:22 Normodyne IVPUSH 09/08/17 20:46 Not Given NOW ONE Protocol Labetalol HCl Confirm 09/08/17 20:48 09/08/17 21:22 Normodyne Administered 09/08/17 20:49 Not Given Dose 20 mg .ROUTE .STK-MED ONE Sodium Chloride 10 ml 09/08/17 20:46 Saline Flush FLUSH ASDIRECTED PRN Keep Vein Open - Radiology Interpretation Free Text/Narrative:: CT of the head per radiology no acute findings. - Re-Assessments/Exams Free Text/Narrative Re-Assessment/Exam: 09/09/17 stroke code was initiated on initial arrival. Patient is quite hypertensive initially but does improve without intervention. Emergently to the CAT scanner. 09/09/17 patient's blood pressure did normalize down to the 160s to 170 systolically which is where I would like it to be with this most likely cerebral infarction. She does not have any evidence of any other medication ingestion to include salicylates or acetaminophen or alcohol. She continued with left-sided hemiplegia as well as difficulty with speech. I did call and talk with the neurologist on-call at [facility] in [place]. History of present illness ER course concerns for cerebral infarct and outside of the time frame for TPA were relayed to him. His questions were answered. He accepted the patient in transfer we will transfer via [facility] flight due to the acute nature of the cerebral infarction. Patient did maintain her airway per self without difficulty. Departure - Departure Time of Disposition: 21:04 Disposition: DC/Tfer to Acute Hospital 02 Clinical Impression: Hemiplegia affecting left nondominant side Qualifiers: Hemiplegia type: flaccid Hemiplegia etiology: unspecified etiology Qualified Code(s): G81.04 - Flaccid hemiplegia affecting left nondominant side - Discharge Information Referrals: PCP,None [Primary Care Provider] - Forms: ED Department Discharge, Interfacility Transfer EMTALA - My Orders Last 24 Hours: My Active Orders 09/08/17 20:46 EKG 12 Lead [EKG Documentation Completion] [RC] URGENT Peripheral IV Care [RC] . DIRECTED Peripheral IV Insertion Adult [OM.PC] Stat - Assessment/Plan Last 24 Hours: My Active Orders 09/08/17 20:46 EKG 12 Lead [EKG Documentation Completion] [RC] URGENT Peripheral IV Care [RC] . DIRECTED Peripheral IV Insertion Adult [OM.PC] Stat Assessment:: CVA with left hemiplegia. Plan: Transfer to stroke center in [place] by air ambulance for further care and evaluation.
--- NOTE | 2017-09-15 09:59 | EKG ---
09/08/2017- KARI RIBEIRO - EKG per my reading shows sinus rhythm at the rate of 97. MODL /[id number]
== END 2017-09-08 22:15 ==
LOC: DL.ED 20:37
DX: I69.354 Hemiplegia and hemiparesis following cerebral infarction affecting left non-dominant side (principal); E78.00 Pure hypercholesterolemia, unspecified; I10 Essential (primary) hypertension; E11.9 Type 2 diabetes mellitus without complications; Z88.8 Allergy status to other drugs, medicaments and biological substances; Z79.4 Long term (current) use of insulin; Z79.82 Long term (current) use of aspirin; Z79.899 Other long term (current) drug therapy
CPT/HCPCS: 36415; 70450; 80053; 82962; 83605; 84484; 85025; 86140; 93005; 93010; 99285; G0480; A9270-GY

== ENCOUNTER 2018-01-31 03:33 | Emergency (ER) | payer OTHER, MEDICAID ==
[2018-01-31 03:42] VITALS: BP 101/66
--- NOTE | 2018-01-31 04:04 | EDM.PDOC ---
ED HPI GENERAL MEDICAL PROBLEM - General Chief Complaint: Head Injury Stated Complaint: FELL, HIT HEAD AND KNEES [id number] Time Seen by Provider: 01/31/18 03:50 Source of Information: Reports: Patient, Family History Limitations: Reports: No Limitations - History of Present Illness INITIAL COMMENTS - FREE TEXT/NARRATIVE: This 47 yo female patient was brought to the ED by family due to a fall at home. The patient reports she fell after taking a [place] just prior to coming to the ED. The patient reports pain in the right side of her head, both sides of her face, right shoulder and both knees due to the fall. The patient's family reports that the patient has had several falls with no known cause. The patient had delayed conversation during the interview and had difficulties focusing on questions asked. Onset: Today Duration: Minutes: Location: Reports: Head (right side), Face (both sides), Upper Extremity, Right , Lower Extremity, Left, Lower Extremity, Right Quality: Reports: Other Severity: Moderate Improves with: Reports: None Worsens with: Reports: None Associated Symptoms: Reports: Syncope, Weakness Left Head Pain Score (Numeric/FACES): 9 - Related Data Allergies Allergy/AdvReac Type Severity Reaction Status Date / Time levonorgestrel Allergy Cannot Verified 01/31/18 03:41 Remember trazodone Allergy Swelling Verified 01/31/18 03:41 mint chocolate chip flavor Allergy Swelling Uncoded 01/31/18 03:41 seasonal Allergy Cannot Uncoded 01/31/18 03:41 Remember Home Meds: Home Meds Insulin Glarg,Human.Rec.Analog [Lantus Solostar] 43 units SQ BID 10/26/13 [ History] Acetaminophen [Tylenol Extra Strength] 1,000 mg PO Q6H PRN 11/17/14 [History] Albuterol [Proventil] 3 ml INH QID PRN 11/17/14 [History] Albuterol/Ipratropium [Combivent] 1 puff INH Q4H PRN 11/17/14 [History] Aspirin 325 mg PO DAILY 11/17/14 [History] Budesonide/Formoterol [Symbicort 80-4.5 MCG] 2 puff INH DAILY 11/17/14 [History] EPINEPHrine [Epipen] 0.3 ml SUBCUT ASDIRECTED PRN 11/17/14 [History] Fluticasone Propionate [Flonase] 2 sprays NASBOTH DAILY 11/17/14 [History] Ibuprofen 800 mg PO ASDIRECTED PRN 11/17/14 [History] Insulin Lispro [HumaLOG] 2 units SUBCUT ASDIRECTED PRN 11/17/14 [History] Lactobacillus Acidophilus [Probiotic] 1 tab PO DAILY 11/17/14 [History] Pantoprazole [Protonix] 40 mg PO DAILY 11/17/14 [History] tiZANidine [Zanaflex] 4 mg PO Q8HR PRN 02/20/15 [History] DULoxetine [Cymbalta] 120 mg PO DAILY 08/01/15 [History] Gabapentin [Neurontin] 400 mg PO TID 08/01/15 [History] Pravastatin [Pravachol] 20 mg PO BEDTIME 08/01/15 [History] buPROPion [Wellbutrin] 50 mg PO BID 08/01/15 [History] Hydrocodone/Acetaminophen [Hydrocodon-Acetaminophen 5-325] 1 tab PO Q6HR PRN [History] Zolpidem [Ambien] 1 tab PO BEDTIME PRN 12/15/15 [History] metFORMIN [Glucophage XR] 1,000 mg PO BIDAC 12/15/15 [History] Liraglutide [Victoza] 1.2 mg SUBCUT DAILY 03/16/16 [History] Past Medical History HEENT History: Reports: Impaired Vision Cardiovascular History: Reports: High Cholesterol, Hypertension, [place] Respiratory History: Reports: COPD, Sleep Apnea Other Respiratory History: uses c-pap at home. 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 Musculoskeletal History: Reports: Arthritis, Back Pain, Chronic, Other (See Below) Other Musculoskeletal History: Neck and back Neurological History: Reports: CVA, Migraines, Neuropathy, Diabetic Psychiatric History: Reports: Anxiety, Depression, Panic Attack, Suicide Attempt Endocrine/Metabolic History: Reports: Diabetes, Type II, Obesity/BMI 30+ Hematologic History: Reports: Anemia Immunologic History: Reports: None Oncologic (Cancer) History: Reports: None Dermatologic History: Reports: None - Infectious Disease History Infectious Disease History: Reports: MRSA - Past Surgical History Head Surgeries/Procedures: Reports: None GI Surgical History: Reports: Appendectomy Female Surgical History: Reports: D&C Social & Family History - Family History Family Medical History: Noncontributory - Tobacco Use Smoking Status *Q: Never Smoker - Caffeine Use Caffeine Use: Reports: Coffee - Recreational Drug Use Recreational Drug Use: No ED ROS GENERAL - Review of Systems Review Of Systems: ROS reveals no pertinent complaints other than HPI. ED EXAM, HEAD INJURY - Physical Exam Exam: See Below Exam Limited By: No Limitations General Appearance: Alert, WD/WN, Moderate Distress, Obese Head: Scalp Tenderness (right temporal) Nexus Criteria: No: Posterior, Midline Cervical Tenderness, Evidence of Intoxication, Altered Level of Consciousness, Focal Neurological Deficit, Painful Distraction Injuries Eyes: Bilateral Eye: PERRL (sluggish, but reactive), Other (The patient had difficulties focusing during the evaluation of the pupils. ) Ears: Normal External Exam, Normal Canal, Hearing Grossly Normal, Normal TMs Nose: Normal Inspection, Normal Mucousa, No Blood Throat/Mouth: Normal Inspection, Normal Lips, Normal Teeth, Normal Gums, Normal Oropharynx, Normal Voice, No Airway Compromise Neck: Non-Tender, Full Range of Motion, Normal Alignment, Normal Inspection Respiratory: No Respiratory Distress, Lungs Clear, Normal Breath Sounds, No Accessory Muscle Use, Chest Non-Tender Cardiovascular: Normal Peripheral Pulses, Regular Rate, Rhythm, No Edema, No Gallop, No JVD, No Murmur, No Rub GI/Abdominal Exam: Other (morbid obesity) (Female) Exam: Deferred Rectal (Female) Exam: Deferred Back Exam: Full Range of Motion, Normal Inspection, NT Extremities: Arm Pain (pain with palpation of the right shoulder), Leg Pain ( swelling of the right knee with a contusion to the area) Neurologic: billet inspector II-XII nml As Tested, Alert Skin: Normal Color, Warm/Dry - Jada Coma Score Best Eye Response ([place]): (4) Open Spontaneously Best Verbal Response (Jada): (5) Oriented Best Motor Response (Jada): (6) Obeys Commands Jada Total: 15 Course - Vital Signs Last Recorded V/S: Last Vital Signs Temp 36.4 C 01/31/18 03:42 Pulse 103 H 01/31/18 03:42 Resp 20 01/31/18 03:42 BP 101/66 01/31/18 03:42 Pulse Ox 97 01/31/18 03:42 - Orders/Labs/Meds Orders: Active Orders 24 hr Category Date Time Status EKG Documentation Completion [RC] URGENT Care 01/31/18 04:11 Active DRUG SCREEN URINE BIORAD [URCHEM] Stat Lab 01/31/18 05:28 Ordered UA W/MICROSCOPIC [URIN] Stat Lab 01/31/18 05:28 Ordered Labs: Laboratory Tests 01/31/18 01/31/18 01/31/18 Range/Units 03:56 03:56 03:56 WBC 10.8 H (5.0-10.0) 10^3/uL RBC 3.76 L (4.2-5.4) 10^6/uL Hgb 10.2 L (12.0-16.0) g/dL Hct 32.8 L (37.0-47.0) % MCV 87.2 (80-100) fL MCH 27.1 (27.0-34.0) pg MCHC 31.1 L (33.0-35.0) g/dL Plt Count 356 (150-450) 10^3/uL Neut % (Auto) 61.3 (42.2-75.2) % Lymph % (Auto) 29.1 (20.5-50.1) % Lynn % (Auto) 7.7 (2-8) % Eos % (Auto) 1.4 (1.0-3.0) % Baso % (Auto) 0.5 (0.0-1.0) % PT 10.0 (9.0-12.0) SEC INR 1.0 (0.9-1.2) Sodium 136 (135-145) mmol/L Potassium 4.2 (3.6-5.0) mmol/L Chloride 102 (101-111) mmol/L Carbon Dioxide 26.0 (21.0-31.0) mmol/L Anion Gap 12.2 BUN 19 H (7-18) mg/dL Creatinine 1.2 (0.6-1.3) mg/dL Est Cr Clr Drug Dosing 45.34 mL/min Estimated GFR (MDRD) 48 BUN/Creatinine Ratio 15.83 Glucose 109 H (74-105) mg/dL Calcium 8.8 (8.4-10.2) mg/dl Total Bilirubin 0.5 (0.2-1.0) mg/dL AST 20 (10-42) IU/L ALT 13 (10-60) IU/L Alkaline Phosphatase 65 (42-121) IU/L Troponin I (0.00-0.02) ng/ml Total Protein 7.7 (6.7-8.2) g/dl Albumin 3.5 (3.2-5.5) g/dl Globulin 4.2 Albumin/Globulin Ratio 0.83 Urine Color (YELLOW) Urine Appearance (CLEAR) Urine pH (5.0-9.0) Ur Specific [place] (1.005-1.030) Urine Protein (NEGATIVE) Urine Glucose (UA) (NEGATIVE) Urine Ketones (NEGATIVE) Urine Occult Blood (NEGATIVE) Urine Nitrite (NEGATIVE) Urine Bilirubin (NEGATIVE) Urine Urobilinogen (0.2-1.0) mg/dL Ur Leukocyte Esterase (NEGATIVE) Urine Opiates Screen (NEGATIVE) Ur Oxycodone Screen (NEGATIVE) Urine Methadone Screen (NEGATIVE) Ur Barbiturates Screen (NEGATIVE) U Tricyclic Antidepress (NEGATIVE) Ur Phencyclidine Scrn (NEGATIVE) Ur Amphetamine Screen (NEGATIVE) U Methamphetamines Scrn (NEGATIVE) Urine MDMA Screen (NEGATIVE) U Benzodiazepines Scrn (NEGATIVE) Urine Cocaine Screen (NEGATIVE) U Marijuana (THC) Screen (NEGATIVE) 01/31/18 01/31/18 01/31/18 Range/Units 03:56 05:28 05:28 WBC (5.0-10.0) 10^3/uL RBC (4.2-5.4) 10^6/uL Hgb (12.0-16.0) g/dL Hct (37.0-47.0) % MCV (80-100) fL MCH (27.0-34.0) pg MCHC (33.0-35.0) g/dL Plt Count (150-450) 10^3/uL Neut % (Auto) (42.2-75.2) % Lymph % (Auto) (20.5-50.1) % Lynn % (Auto) (2-8) % Eos % (Auto) (1.0-3.0) % Baso % (Auto) (0.0-1.0) % PT (9.0-12.0) SEC INR (0.9-1.2) Sodium (135-145) mmol/L Potassium (3.6-5.0) mmol/L Chloride (101-111) mmol/L Carbon Dioxide (21.0-31.0) mmol/L Anion Gap BUN (7-18) mg/dL Creatinine (0.6-1.3) mg/dL Est Cr Clr Drug Dosing mL/min Estimated GFR (MDRD) BUN/Creatinine Ratio Glucose (74-105) mg/dL Calcium (8.4-10.2) mg/dl Total Bilirubin (0.2-1.0) mg/dL AST (10-42) IU/L ALT (10-60) IU/L Alkaline Phosphatase (42-121) IU/L Troponin I < 0.02 (0.00-0.02) ng/ml Total Protein (6.7-8.2) g/dl Albumin (3.2-5.5) g/dl Globulin Albumin/Globulin Ratio Urine Color Dark yellow (YELLOW) Urine Appearance Cloudy (CLEAR) Urine pH 5.0 (5.0-9.0) Ur Specific [place] 1.025 (1.005-1.030) Urine Protein 100 H (NEGATIVE) Urine Glucose (UA) Negative (NEGATIVE) Urine Ketones 40 H (NEGATIVE) Urine Occult Blood Large H (NEGATIVE) Urine Nitrite Negative (NEGATIVE) Urine Bilirubin Large H (NEGATIVE) Urine Urobilinogen 1.0 (0.2-1.0) mg/dL Ur Leukocyte Esterase Negative (NEGATIVE) Urine Opiates Screen Positive H (NEGATIVE) Ur Oxycodone Screen Positive H (NEGATIVE) Urine Methadone Screen Negative (NEGATIVE) Ur Barbiturates Screen Negative (NEGATIVE) U Tricyclic Antidepress Negative (NEGATIVE) Ur Phencyclidine Scrn Negative (NEGATIVE) Ur Amphetamine Screen Negative (NEGATIVE) U Methamphetamines Scrn Positive H (NEGATIVE) Urine MDMA Screen Negative (NEGATIVE) U Benzodiazepines Scrn Negative (NEGATIVE) Urine Cocaine Screen Negative (NEGATIVE) U Marijuana (THC) Screen Negative (NEGATIVE) Departure - Departure Time of Disposition: 05:52 Disposition: Home, Self-Care 01 Condition: Fair Clinical Impression: Syncope and collapse, Fall from ground level Contusion of right knee Qualifiers: Encounter type: initial encounter Qualified Code(s): S80.01XA - Contusion of right knee, initial encounter - Discharge Information Instructions: Contusion, [id number], Syncope, [id number] Forms: ED Department Discharge Care Plan Goals: The patient and family were advised of the examination, lab, EKG, x-ray and CT results during the visit. The patient was encouraged to visit her primary care facility to review her medications for possible side effects including dizziness and falling. The patient should rest, ice and elevate her right knee due to the contusion. If the patient has any additional symptoms or concerns, the patient should visit her primary care facility or return to the emergency department. - My Orders Last 24 Hours: My Active Orders 01/31/18 04:11 EKG Documentation Completion [RC] URGENT 01/31/18 05:28 DRUG SCREEN URINE BIORAD [URCHEM] Stat UA W/MICROSCOPIC [URIN] Stat - Assessment/Plan Last 24 Hours: My Active Orders 01/31/18 04:11 EKG Documentation Completion [RC] URGENT 01/31/18 05:28 DRUG SCREEN URINE BIORAD [URCHEM] Stat UA W/MICROSCOPIC [URIN] Stat
[2018-01-31 04:21] LABS: ANION GAP 12.2
--- NOTE | 2018-02-01 17:18 | EKG ---
01/31/2018 - KARI RIBEIRO - TIME: 4:12 a.m. FINDINGS: Sinus rhythm at 92 as per my reading. MOD /[id number]
== END 2018-01-31 05:57 | disposition home or self-care (01) ==
LOC: DL.ED 03:33
DX: S80.01XA Contusion of right knee, initial encounter (principal); R55 Syncope and collapse; E78.00 Pure hypercholesterolemia, unspecified; I10 Essential (primary) hypertension; I25.2 Old myocardial infarction; J44.9 Chronic obstructive pulmonary disease, unspecified; K21.9 Gastro-esophageal reflux disease without esophagitis; E11.40 Type 2 diabetes mellitus with diabetic neuropathy, unspecified; Z88.8 Allergy status to other drugs, medicaments and biological substances; Z79.4 Long term (current) use of insulin; Z79.82 Long term (current) use of aspirin; Z79.899 Other long term (current) drug therapy; W19.XXXA Unspecified fall, initial encounter; Y92.009 Unspecified place in unspecified non-institutional (private) residence as the place of occurrence of the external cause
CPT/HCPCS: 36415; 70450; 70486; 73030-RT; 73562-LT; 73562-RT; 80053; 80305; 81001; 84484; 85025; 85610; 93005; 93010; 99283; 99284

== ENCOUNTER 2018-03-12 13:15 | Emergency (ER) | payer MEDICAID, OTHER ==
[2018-03-12] MEDS ORDERED: LORazepam 2 MG/ML Syringe IVPUSH ONE (13:25)
--- NOTE | 2018-03-12 13:39 | EDM.PDOC ---
ED HPI GENERAL MEDICAL PROBLEM - General Chief Complaint: Chest Pain Stated Complaint: IN BY AMBULANCE Time Seen by Provider: 03/12/18 13:15 Source of Information: Reports: Patient, EMS History Limitations: Reports: No Limitations - History of Present Illness INITIAL COMMENTS - FREE TEXT/NARRATIVE: Patient comes emergency department today with complaints of substernal chest pain as well as numbness and tingling to her hands and her feet. She has these very similar symptoms on a daily basis for the past 8 months since her sister . She typically takes a couple nitroglycerin here and there sometimes the pain gets better sometimes it doesn't. Today she took 3 nitros and it did not get any better. She is very anxious and shaky. The pain is sharp shooting stabbing in nature and comes and goes. No shortness of breath cough or congestion. No fever no chills. No abdominal pain nausea or vomiting. No diaphoresis. No recent falls or trauma. She does have a history of a stroke for which she has minimal deficits. Her hands and her feet or cramping. She does struggle with anxiety and does feel that this is an anxiety attack and has an seeing a psychiatrist as well as started on some medication. He denies any history of heartburn. She did take an 324 of aspirin as well as 3 nitroglycerin prior to arrival without improvement. Chest Pain Score (Numeric/FACES): 8 - Related Data Allergies Allergy/AdvReac Type Severity Reaction Status Date / Time levonorgestrel Allergy Cannot Verified 03/12/18 13:29 Remember trazodone Allergy Swelling Verified 03/12/18 13:29 mint chocolate chip flavor Allergy Swelling Uncoded 03/12/18 13:29 seasonal Allergy Cannot Uncoded 03/12/18 13:29 Remember Home Meds: Home Meds Insulin Glarg,Human.Rec.Analog [Lantus Solostar] 43 units SQ BID 10/26/13 [ History] Acetaminophen [Tylenol Extra Strength] 1,000 mg PO Q6H PRN 11/17/14 [History] Albuterol [Proventil] 3 ml INH QID PRN 11/17/14 [History] Albuterol/Ipratropium [Combivent] 1 puff INH Q4H PRN 11/17/14 [History] Aspirin 325 mg PO DAILY 11/17/14 [History] Budesonide/Formoterol [Symbicort 80-4.5 MCG] 2 puff INH DAILY 11/17/14 [History] EPINEPHrine [Epipen] 0.3 ml SUBCUT ASDIRECTED PRN 11/17/14 [History] Fluticasone Propionate [Flonase] 2 sprays NASBOTH DAILY 11/17/14 [History] Ibuprofen 800 mg PO ASDIRECTED PRN 11/17/14 [History] Insulin Lispro [HumaLOG] 2 units SUBCUT ASDIRECTED PRN 11/17/14 [History] Lactobacillus Acidophilus [Probiotic] 1 tab PO DAILY 11/17/14 [History] Pantoprazole [Protonix] 40 mg PO DAILY 11/17/14 [History] tiZANidine [Zanaflex] 4 mg PO Q8HR PRN 02/20/15 [History] DULoxetine [Cymbalta] 120 mg PO DAILY 08/01/15 [History] Gabapentin [Neurontin] 400 mg PO TID 08/01/15 [History] Pravastatin [Pravachol] 20 mg PO BEDTIME 08/01/15 [History] buPROPion [Wellbutrin] 50 mg PO BID 08/01/15 [History] Hydrocodone/Acetaminophen [Hydrocodon-Acetaminophen 5-325] 1 tab PO Q6HR PRN [History] Zolpidem [Ambien] 1 tab PO BEDTIME PRN 12/15/15 [History] metFORMIN [Glucophage XR] 1,000 mg PO BIDAC 12/15/15 [History] Liraglutide [Victoza] 1.2 mg SUBCUT DAILY 03/16/16 [History] Past Medical History HEENT History: Reports: Impaired Vision Cardiovascular History: Reports: High Cholesterol, Hypertension, [place] Respiratory History: Reports: COPD, Sleep Apnea Other Respiratory History: uses c-pap at home. 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 Musculoskeletal History: Reports: Arthritis, Back Pain, Chronic, Other (See Below) Other Musculoskeletal History: Neck and back Neurological History: Reports: CVA, Migraines, Neuropathy, Diabetic Psychiatric History: Reports: Anxiety, Depression, Panic Attack, Suicide Attempt Endocrine/Metabolic History: Reports: Diabetes, Type II, Obesity/BMI 30+ Hematologic History: Reports: Anemia Immunologic History: Reports: None Oncologic (Cancer) History: Reports: None Dermatologic History: Reports: None - Infectious Disease History Infectious Disease History: Reports: Chicken Pox, Measles, MRSA, Mumps - Past Surgical History Head Surgeries/Procedures: Reports: None GI Surgical History: Reports: Appendectomy Female Surgical History: Reports: D&C Social & Family History - Family History Family Medical History: Noncontributory - Tobacco Use Smoking Status *Q: Former Smoker Years of Tobacco use: 3 Packs/Tins Daily: 0.5 Used Tobacco, but Quit: Yes Month/Year Tobacco Last Used: august Second Hand Smoke Exposure: No - Caffeine Use Caffeine Use: Reports: Coffee, Tea - Recreational Drug Use Recreational Drug Use: No ED ROS GENERAL - Review of Systems Review Of Systems: ROS reveals no pertinent complaints other than HPI. ED EXAM, GENERAL - Physical Exam Exam: See Below Exam Limited By: No Limitations General Appearance: Alert, WD/WN, Anxious Ears: Normal External Exam, Normal Canal, Hearing Grossly Normal, Normal TMs Ear Exam: Bilateral Ear: Auricle Normal, Canal Normal, TM normal Nose: Normal Inspection, Normal Mucosa, No Blood Throat/Mouth: Normal Inspection, Normal Lips, Normal Teeth, Normal Gums, Normal Oropharynx, Normal Voice, No Airway Compromise Head: Atraumatic, Normocephalic Neck: Normal Inspection, Supple, Non-Tender, Full Range of Motion Respiratory/Chest: No Respiratory Distress, Lungs Clear, Normal Breath Sounds, No Accessory Muscle Use, Chest Non-Tender Cardiovascular: Normal Peripheral Pulses, Regular Rate, Rhythm, No Edema, No Gallop, No JVD, No Murmur, No Rub GI/Abdominal: Normal Bowel Sounds, Soft, Non-Tender, No Distention, No Abnormal Bruit, No Mass (Female) Exam: Deferred Rectal (Female) Exam: Deferred Back Exam: Normal Inspection Extremities: Normal Range of Motion, Non-Tender, No Pedal Edema, Normal Capillary Refill. No: Normal Inspection (carpal pedal spasms in hands and feet bilaterally. ) Neurological: Alert, Oriented, CN II-XII Intact, Normal Cognition, Normal Gait, Normal Reflexes, No Motor/Sensory Deficits Psychiatric: Anxious, Depressed Mood, Tearful Skin Exam: Warm, Dry, Intact, Normal Color, No Rash Lymphatic: No Adenopathy EKG INTERPRETATION EKG Date: 03/12/18 Time: 13:25 Rhythm: NSR Rate (Beats/Min): 84 Stanley: Normal P-Wave: Present QRS: Normal ST-T: Normal QT: Normal Comparison: No Change Course - Vital Signs Last Recorded V/S: Last Vital Signs Temp 36.8 C 03/12/18 13:21 Pulse 93 03/12/18 13:21 Resp 16 03/12/18 13:21 BP 147/88 H 03/12/18 13:21 Pulse Ox 96 03/12/18 13:21 - Orders/Labs/Meds Orders: Active Orders 24 hr Category Date Time Status EKG 12 Lead [EKG Documentation Completion] [RC] URGENT Care 03/12/18 13:25 Active Labs: Laboratory Tests 03/12/18 03/12/18 Range/Units 13:38 13:38 WBC 7.4 (5.0-10.0) 10^3/uL RBC 3.67 L (4.2-5.4) 10^6/uL Hgb 9.8 L (12.0-16.0) g/dL Hct 32.0 L (37.0-47.0) % MCV 87.2 (80-100) fL MCH 26.7 L (27.0-34.0) pg MCHC 30.6 L (33.0-35.0) g/dL Plt Count 339 (150-450) 10^3/uL Neut % (Auto) 60.0 (42.2-75.2) % Lymph % (Auto) 32.1 (20.5-50.1) % [place] % (Auto) 6.1 (2-8) % Eos % (Auto) 1.5 (1.0-3.0) % Baso % (Auto) 0.3 (0.0-1.0) % Sodium 139 (135-145) mmol/L Potassium 3.7 (3.6-5.0) mmol/L Chloride 106 (101-111) mmol/L Carbon Dioxide 25.0 (21.0-31.0) mmol/L Anion Gap 11.7 BUN 12 (7-18) mg/dL Creatinine 0.7 (0.6-1.3) mg/dL Est Cr Clr Drug Dosing 77.73 mL/min Estimated GFR (MDRD) > 60 BUN/Creatinine Ratio 17.14 Glucose 100 (74-105) mg/dL Calcium 9.2 (8.4-10.2) mg/dl Total Bilirubin 0.4 (0.2-1.0) mg/dL AST 21 (10-42) IU/L ALT 13 (10-60) IU/L Alkaline Phosphatase 62 (42-121) IU/L Troponin I < 0.02 (0.00-0.02) ng/ml Total Protein 7.7 (6.7-8.2) g/dl Albumin 3.4 (3.2-5.5) g/dl Globulin 4.3 Albumin/Globulin Ratio 0.79 Meds: Medications Discontinued Medications Generic Name Dose Route Start Last Admin Trade Name Jessy PRN Reason Stop Dose Admin Lorazepam 1 mg 03/12/18 13:25 03/12/18 13:40 Ativan IVPUSH 03/12/18 13:26 1 mg ONETIME ONE Administration - Re-Assessments/Exams Free Text/Narrative Re-Assessment/Exam: 03/12/18 13:40 ativan 1mg IVP 03/12/18 14:30 Following the above therapy the patient feels much better he carpopedal spasms has resolved and her chest pain is resolved as well. This really feels like an acute panic attack or anxiety on my exam especially since her symptomology is resolved with Ativan. Chest pain has been going on for 8 months she has seen a psychiatrist and on some medication I will start her on some hydroxyzine for acute management of her symptoms. Departure - Departure Time of Disposition: 14:32 Disposition: Home, Self-Care 01 Clinical Impression: Panic attack Instructions: Panic Attack, [id number] Forms: ED Department Discharge Additional Instructions: Continue previous medications. Hydroxyzine 1 tablet three times a day as needed for acute episode of a panic attack. If symptoms do not improve with above also try Nitro and recheck. Return to the ED if new or worsening symptoms. Follow up with primary care provider in the next 4-6 days. - My Orders Last 24 Hours: My Active Orders 03/12/18 13:25 EKG 12 Lead [EKG Documentation Completion] [RC] URGENT - Assessment/Plan Last 24 Hours: My Active Orders 03/12/18 13:25 EKG 12 Lead [EKG Documentation Completion] [RC] URGENT Assessment:: panic attack. Plan: Continue previous medications. Hydroxyzine 1 tablet three times a day as needed for acute episode of a panic attack. RX given to the patient. If symptoms do not improve with above also try Nitro and recheck. Return to the ED if new or worsening symptoms. Follow up with primary care provider in the next 4-6 days.
[2018-03-12 14:03] LABS: ANION GAP 11.7; CHLORIDE,CL 106 mmol/L (101-111); SODIUM,NA 139 mmol/L (135-145)
[2018-03-12 14:41] VITALS: BP 132/83
--- NOTE | 2018-03-15 07:50 | EKG ---
03/12/2018- KARI RIBEIRO - EKG per my reading shows sinus rhythm at the rate of 84. MOD /[id number]
== END 2018-03-12 14:46 | disposition home or self-care (01) ==
LOC: DL.ED 13:15
DX: F41.0 Panic disorder [episodic paroxysmal anxiety] (principal); I10 Essential (primary) hypertension; I25.2 Old myocardial infarction; E11.9 Type 2 diabetes mellitus without complications; Z87.891 Personal history of nicotine dependence; Z88.8 Allergy status to other drugs, medicaments and biological substances; Z91.02 Food additives allergy status; Z91.048 Other nonmedicinal substance allergy status; Z79.82 Long term (current) use of aspirin; Z79.899 Other long term (current) drug therapy
CPT/HCPCS: 36415; 71046; 80053; 84484; 85025; 93005; 96374; 99285; J2060

== ENCOUNTER 2018-08-31 03:48 | Emergency (ER) | payer MEDICAID ==
--- NOTE | 2018-08-31 04:02 | EDM.PDOC ---
ED HPI GENERAL MEDICAL PROBLEM - General Chief Complaint: Head Injury Stated Complaint: FELL AND HIT HEAD [id number] Time Seen by Provider: 08/31/18 04:02 Source of Information: Reports: Patient, RN, RN Notes Reviewed - History of Present Illness INITIAL COMMENTS - FREE TEXT/NARRATIVE: Pt to ER with c/o falling and hitting her head. Patient states she was on the couch about 8pm last night when she got up to answer the door. She states she felt dizzy when she got up to answer the door, and the next thing she remembers is sitting up on the floor against the wall and her head and tailbone hurt. She states she has had difficulties with dizziness in the past. She states she is unsure if she was knocked out or not. She states she did have some chest pain with the dizziness prior to falling. Patient denies any recent illnesses. She states she does have an unknown heart condition, and diabetes. She admits to having had a stroke in the past. Patient states she has some double vision at times, and nausea, but no vomiting. Onset: Today, Sudden Occipital Head Pain Score (Numeric/FACES): 6 - Related Data Allergies Allergy/AdvReac Type Severity Reaction Status Date / Time levonorgestrel Allergy Cannot Verified 03/16/18 09:03 Remember trazodone Allergy Swelling Verified 03/16/18 09:03 mint chocolate chip flavor Allergy Swelling Uncoded 03/12/18 13:29 seasonal Allergy Cannot Uncoded 03/12/18 13:29 Remember Home Meds: Home Meds Insulin Glarg,Human.Rec.Analog [Lantus Solostar] 43 units SQ BID 10/26/13 [ History] Acetaminophen [Tylenol Extra Strength] 1,000 mg PO Q6H PRN 11/17/14 [History] Albuterol [Proventil] 3 ml INH QID PRN 11/17/14 [History] Albuterol/Ipratropium [Combivent] 1 puff INH Q4H PRN 11/17/14 [History] Aspirin 325 mg PO DAILY 11/17/14 [History] Budesonide/Formoterol [Symbicort 80-4.5 MCG] 2 puff INH BID 11/17/14 [History] EPINEPHrine [Epipen] 0.3 ml SUBCUT ASDIRECTED PRN 11/17/14 [History] Fluticasone Propionate [Flonase] 2 sprays NASBOTH DAILY 11/17/14 [History] Ibuprofen 800 mg PO ASDIRECTED PRN 11/17/14 [History] Insulin Lispro [HumaLOG] 2 units SUBCUT ASDIRECTED PRN 11/17/14 [History] Lactobacillus Acidophilus [Probiotic] 1 tab PO DAILY 11/17/14 [History] Pantoprazole [Protonix] 40 mg PO DAILY 11/17/14 [History] tiZANidine [Zanaflex] 4 mg PO Q8HR PRN 02/20/15 [History] DULoxetine [Cymbalta] 120 mg PO DAILY 08/01/15 [History] Gabapentin [Neurontin] 400 mg PO TID 08/01/15 [History] Pravastatin [Pravachol] 20 mg PO BEDTIME 08/01/15 [History] buPROPion [Wellbutrin] 50 mg PO BID 08/01/15 [History] Hydrocodone/Acetaminophen [Hydrocodon-Acetaminophen 5-325] 10 mg PO Q6HR PRN [History] Zolpidem [Ambien] 1 tab PO BEDTIME PRN 12/15/15 [History] metFORMIN [Glucophage XR] 1,000 mg PO BIDAC 12/15/15 [History] Liraglutide [Victoza] 1.2 mg SUBCUT DAILY 03/16/16 [History] Ascorbic Acid [Vitamin C] 250 mg PO BID 08/31/18 [History] Atenolol 25 mg PO DAILY 08/31/18 [History] Biotin 300 mcg PO DAILY 08/31/18 [History] Ferrous Sulfate 325 mg PO TID 08/31/18 [History] Lisinopril 30 mg PO DAILY 08/31/18 [History] Ondansetron HCl [Zofran] 4 mg PO DAILY 08/31/18 [History] hydrOXYzine HCl [hydrOXYzine] 25 mg PO TID PRN 08/31/18 [History] Past Medical History HEENT History: Reports: Impaired Vision Cardiovascular History: Reports: High Cholesterol, Hypertension, [place] Respiratory History: Reports: COPD, Sleep Apnea Other Respiratory History: uses c-pap at home. 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 Musculoskeletal History: Reports: Arthritis, Back Pain, Chronic, Other (See Below) Other Musculoskeletal History: Neck and back Neurological History: Reports: CVA, Migraines, Neuropathy, Diabetic Psychiatric History: Reports: Anxiety, Depression, Panic Attack, Suicide Attempt Endocrine/Metabolic History: Reports: Diabetes, Type II, Obesity/BMI 30+ Hematologic History: Reports: Anemia Immunologic History: Reports: None Oncologic (Cancer) History: Reports: None Dermatologic History: Reports: None - Infectious Disease History Infectious Disease History: Reports: Chicken Pox, Measles, MRSA, Mumps - Past Surgical History Head Surgeries/Procedures: Reports: None GI Surgical History: Reports: Appendectomy Female Surgical History: Reports: D&C Social & Family History - Family History Family Medical History: Noncontributory - Caffeine Use Caffeine Use: Reports: Coffee, Tea ED ROS GENERAL - Review of Systems Review Of Systems: ROS reveals no pertinent complaints other than HPI. ED EXAM, HEAD INJURY - Physical Exam Exam: See Below Exam Limited By: No Limitations General Appearance: Alert, WD/WN, Mild Distress Head: Scalp Lacerations (0.9cm to the back of the scalp, irregular, dry blood, no active bleeding.), Scalp Tenderness. No: Active Bleeding Nexus Criteria: Posterior, Midline Cervical Tenderness, Painful Distraction Injuries (tailbone and back of head). No: Evidence of Intoxication, Altered Level of Consciousness, Focal Neurological Deficit Eyes: Bilateral Eye: EOMI, Normal Inspection, PERRL (3 brisk), Vision Changes ( States some double vision at times) Ears: Normal External Exam, Normal Canal, Hearing Grossly Normal, Normal TMs Nose: Normal Inspection, Normal Mucousa, No Blood Throat/Mouth: Normal Inspection, Normal Lips, Normal Teeth, Normal Gums, Normal Oropharynx, Normal Voice, No Airway Compromise Neck: Normal Alignment, Normal Inspection, Limited Range of Motion, Tenderness, Tender Lateral, Tender Midline Respiratory: No Respiratory Distress, Lungs Clear, Normal Breath Sounds, No Accessory Muscle Use, Chest Non-Tender Cardiovascular: Normal Peripheral Pulses, Regular Rate, Rhythm, No Edema, No Gallop, No JVD, No Murmur, No Rub GI/Abdominal Exam: Normal Bowel Sounds, Soft, Non-Tender (Female) Exam: Deferred Rectal (Female) Exam: Deferred Back Exam: Normal Inspection, Decreased Range of Motion, Vertebral Tenderness Extremities: Normal Inspection, Normal Range of Motion, Non-Tender, No Pedal Edema, Normal Capillary Refill Neurologic: No Motor/Sensory Deficits, Alert, Normal Mood/Affect, Oriented x 3 Skin: Normal Color, Warm/Dry - Jada Coma Score Best Eye Response (Jada): (4) Open Spontaneously Best Verbal Response (Jada): (5) Oriented Best Motor Response ([place]): (6) Obeys Commands [place] Total: 15 EKG INTERPRETATION EKG Date: 08/31/18 Time: 05:06 Rhythm: NSR Rate (Beats/Min): 88 Huger: Normal P-Wave: Present QRS: Normal ST-T: Normal QT: Normal Comparison: No Change Course - Vital Signs Last Recorded V/S: Last Vital Signs Temp 98.6 F 08/31/18 03:54 Pulse 88 08/31/18 03:54 Resp 18 08/31/18 03:54 BP 111/88 08/31/18 03:54 Pulse Ox 100 08/31/18 03:54 - Orders/Labs/Meds Orders: Active Orders 24 hr Category Date Time Status EKG Documentation Completion [RC] STAT Care 08/31/18 04:28 Active Peripheral IV Care [RC] . DIRECTED Care 08/31/18 04:29 Active DRUG SCREEN URINE BIORAD [URCHEM] Stat Lab 08/31/18 04:28 Ordered UA RFX ANGIE AND CULT IF INDIC [URIN] Stat Lab 08/31/18 04:28 Ordered Sodium Chloride 0.9% [Saline Flush] Med 08/31/18 04:27 Active 10 ml FLUSH ASDIRECTED PRN Peripheral IV Insertion Adult [OM.PC] Stat Oth 08/31/18 04:27 Ordered Medication Orders Sodium Chloride (Saline Flush) 10 ml FLUSH ASDIRECTED PRN PRN Reason: Keep Vein Open Last Admin: 08/31/18 05:08 Dose: 10 ml Labs: Laboratory Tests 08/31/18 08/31/18 Range/Units 05:08 05:08 WBC 7.8 (5.0-10.0) 10^3/uL RBC 3.78 L (4.2-5.4) 10^6/uL Hgb 10.4 L (12.0-16.0) g/dL Hct 33.4 L (37.0-47.0) % MCV 88.4 (80-100) fL MCH 27.5 (27.0-34.0) pg MCHC 31.1 L (33.0-35.0) g/dL Plt Count 398 D (150-450) 10^3/uL Neut % (Auto) 52.6 (42.2-75.2) % Lymph % (Auto) 37.8 (20.5-50.1) % [place] % (Auto) 7.3 (2-8) % Eos % (Auto) 1.8 (1.0-3.0) % Baso % (Auto) 0.5 (0.0-1.0) % Sodium 137 (135-145) mmol/L Potassium 3.7 (3.6-5.0) mmol/L Chloride 103 (101-111) mmol/L Carbon Dioxide 23.0 (21.0-31.0) mmol/L Anion Gap 14.7 BUN 19 H (7-18) mg/dL Creatinine 0.9 (0.6-1.3) mg/dL Est Cr Clr Drug Dosing 60.46 mL/min Estimated GFR (MDRD) > 60 BUN/Creatinine Ratio 21.11 Glucose 85 (74-105) mg/dL Calcium 8.9 (8.4-10.2) mg/dl Total Bilirubin 0.4 (0.2-1.0) mg/dL AST 23 (10-42) IU/L ALT 13 (10-60) IU/L Alkaline Phosphatase 71 (42-121) IU/L Troponin I < 0.02 (0.00-0.02) ng/ml Total Protein 7.9 (6.7-8.2) g/dl Albumin 3.4 (3.2-5.5) g/dl Globulin 4.5 Albumin/Globulin Ratio 0.76 Ethyl Alcohol 5 mg/dL Meds: Medications Generic Name Dose Route Start Last Admin Trade Name Freq PRN Reason Stop Dose Admin Sodium Chloride 10 ml 08/31/18 04:27 08/31/18 05:08 Saline Flush FLUSH 10 ml ASDIRECTED PRN Administration Keep Vein Open - Radiology Interpretation Free Text/Narrative:: Head CT w/o contrast: FINDINGS: Brain is unremarkable. No evidence of intracranial hemorrhage, mass effect, hydrocephalus, or significant extra-axial collection. Extracranial soft tissues are unremarkable. Osseous structures are intact. Mucosal thickening and/or small amount of debris is present at the base of the right maxillary sinus. Minimal left frontal sinus mucosal thickening. Remaining paranasal sinuses and mastoid air cells are clear. IMPRESSION: No acute intracranial findings. Thank you for allowing us to participate in the care of your patient. Dictated and Authenticated by: Kyree Lomas MD 08/31/2018 5:20 AM Central Time ([place] & [place]) CSpine CT w/o contrast: FINDINGS: Straightening of cervical lordosis which is likely positional. Osseous structures are intact. No vertebral malalignment. Scattered small vertebral body endplate osteophytes. Intervertebral disc spaces are relatively preserved. Paravertebral soft tissues are unremarkable. Small stable calcified nodule in the left lobe of the thyroid, 8 mm. IMPRESSION: No acute osseous abnormality of the cervical spine. Thank you for allowing us to participate in the care of your patient. Dictated and Authenticated by: Kyree Lomas MD 08/31/2018 5:26 AM Central Time ([place] & [place]) Lumbar spine xray: FINDINGS: Osseous structures appear intact. No vertebral malalignment. Bridging syndesmophyte is seen on the right at the L1-L2 level. Few smaller syndesmophytes at other levels. Intervertebral disc spaces are preserved. IMPRESSION: No acute osseous abnormality of the lumbar spine. Thank you for allowing us to participate in the care of your patient. Dictated and Authenticated by: Kyree Lomas MD 08/31/2018 5:43 AM Central Time ([place] & [place]) Sacrum/coccyx xray: FINDINGS: Osseous structures appear intact. No sacral or coccygeal malalignment. The sacroiliac joints are symmetric and do not appear widened. Few small pelvic calcifications which suggest phleboliths. IMPRESSION: No acute osseous abnormality of the sacrum/coccyx. Thank you for allowing us to participate in the care of your patient. Dictated and Authenticated by: Kyree Lomas MD 08/31/2018 5:42 AM Central Time ([place] & [place]) See rad report Departure - Departure Time of Disposition: 05:46 Disposition: Home, Self-Care 01 Condition: Fair Clinical Impression: Concussion with less than 1 hour loss of consciousness, Scalp laceration, Chronic back pain - Discharge Information *PRESCRIPTION DRUG MONITORING PROGRAM REVIEWED*: No *COPY OF PRESCRIPTION DRUG MONITORING REPORT IN PATIENT VIKKI: No Instructions: Concussion, Adult, [id number], Post-Concussion Syndrome, Easy- to-Read, Facial or Scalp Contusion, [id number], Head Injury, Adult, Easy-to- Read Forms: ED Department Discharge Additional Instructions: May use Tylenol and/or ibuprofen as directed for pain Follow up with your primary care facility Rest - My Orders Last 24 Hours: My Active Orders 08/31/18 04:27 Sodium Chloride 0.9% [Saline Flush] 10 ml FLUSH ASDIRECTED PRN Peripheral IV Insertion Adult [OM.PC] Stat 08/31/18 04:28 EKG Documentation Completion [RC] STAT DRUG SCREEN URINE BIORAD [URCHEM] Stat UA RFX ANGIE AND CULT IF INDIC [URIN] Stat 08/31/18 04:29 Peripheral IV Care [RC] . DIRECTED - Assessment/Plan Last 24 Hours: My Active Orders 08/31/18 04:27 Sodium Chloride 0.9% [Saline Flush] 10 ml FLUSH ASDIRECTED PRN Peripheral IV Insertion Adult [OM.PC] Stat 08/31/18 04:28 EKG Documentation Completion [RC] STAT DRUG SCREEN URINE BIORAD [URCHEM] Stat UA RFX ANGIE AND CULT IF INDIC [URIN] Stat 08/31/18 04:29 Peripheral IV Care [RC] . DIRECTED
[2018-08-31 04:09] VITALS: BP 111/88
[2018-08-31] MEDS ORDERED: Sodium Chloride 0.9% 10 ML Syringe FLUSH PRN (04:27)
[2018-08-31 05:34] LABS: ANION GAP 14.7; CHLORIDE,CL 103 mmol/L (101-111); SODIUM,NA 137 mmol/L (135-145)
== END 2018-08-31 06:09 | disposition home or self-care (01) ==
LOC: DL.ED 03:48
DX: S06.0X9A Concussion with loss of consciousness of unspecified duration, initial encounter (principal); S01.01XA Laceration without foreign body of scalp, initial encounter; G89.29 Other chronic pain; M54.9 Dorsalgia, unspecified; I10 Essential (primary) hypertension; I25.2 Old myocardial infarction; E11.40 Type 2 diabetes mellitus with diabetic neuropathy, unspecified; E66.9 Obesity, unspecified; Z79.4 Long term (current) use of insulin; Z88.8 Allergy status to other drugs, medicaments and biological substances; W18.00XA Striking against unspecified object with subsequent fall, initial encounter
CPT/HCPCS: 36415; 70450; 72100; 72125; 72220; 80053; 84484; 85025; 93005; 99285; G0480

== ENCOUNTER 2019-01-06 16:51 | Emergency (ER) | payer MEDICAID, OTHER ==
[2019-01-06 18:41] LABS: ANION GAP 12.8; CHLORIDE,CL 110 mmol/L (101-111); SODIUM,NA 137 mmol/L (135-145)
[2019-01-06] MEDS ORDERED: Cyclobenzaprine 10 MG Tab PO ONE (18:47)
[2019-01-06] MEDS ORDERED: Iopamidol 612 MG/ML 100 ML Bottle IVPUSH ONE (18:48)
--- NOTE | 2019-01-06 18:53 | EDM.PDOC ---
ED HPI GENERAL MEDICAL PROBLEM - General Chief Complaint: Gastrointestinal Problem Stated Complaint: VOMITTING,DIARRHEA Time Seen by Provider: 01/06/19 18:49 Source of Information: Reports: Patient History Limitations: Reports: No Limitations - History of Present Illness INITIAL COMMENTS - FREE TEXT/NARRATIVE: states started N/V/D with abd pain yesterday, then abd pain got worse after eating pizza, still has BG but not appy. also her back and neck been hurting past few years and did see [facility] which made it worse and from vomiting but has appt @ [facility]. Back Pain Score (Numeric/FACES): 8 - Related Data Allergies Allergy/AdvReac Type Severity Reaction Status Date / Time levonorgestrel Allergy Cannot Verified 01/06/19 17:11 Remember trazodone Allergy Swelling Verified 01/06/19 17:11 mint chocolate chip flavor Allergy Swelling Uncoded 01/06/19 17:11 seasonal Allergy Cannot Uncoded 01/06/19 17:11 Remember Home Meds: Home Meds Insulin Glarg,Human.Rec.Analog [Lantus Solostar] 43 units SQ BID 10/26/13 [ History] Acetaminophen [Tylenol Extra Strength] 1,000 mg PO Q6H PRN 11/17/14 [History] Albuterol [Proventil] 3 ml INH QID PRN 11/17/14 [History] Albuterol/Ipratropium [Combivent] 1 puff INH Q4H PRN 11/17/14 [History] Aspirin 325 mg PO DAILY 11/17/14 [History] Budesonide/Formoterol [Symbicort 80-4.5 MCG] 2 puff INH BID 11/17/14 [History] EPINEPHrine [Epipen] 0.3 ml SUBCUT ASDIRECTED PRN 11/17/14 [History] Fluticasone Propionate [Flonase] 2 sprays NASBOTH DAILY 11/17/14 [History] Ibuprofen 800 mg PO ASDIRECTED PRN 11/17/14 [History] Insulin Lispro [HumaLOG] 2 units SUBCUT ASDIRECTED PRN 11/17/14 [History] Lactobacillus Acidophilus [Probiotic] 1 tab PO DAILY 11/17/14 [History] Pantoprazole [Protonix] 40 mg PO DAILY 11/17/14 [History] tiZANidine [Zanaflex] 4 mg PO Q8HR PRN 02/20/15 [History] DULoxetine [Cymbalta] 120 mg PO DAILY 08/01/15 [History] Gabapentin [Neurontin] 400 mg PO TID 08/01/15 [History] Pravastatin [Pravachol] 20 mg PO BEDTIME 08/01/15 [History] buPROPion [Wellbutrin] 50 mg PO BID 08/01/15 [History] Hydrocodone/Acetaminophen [Hydrocodon-Acetaminophen 5-325] 10 mg PO Q6HR PRN [History] Zolpidem [Ambien] 1 tab PO BEDTIME PRN 12/15/15 [History] metFORMIN [Glucophage XR] 1,000 mg PO BIDAC 12/15/15 [History] Liraglutide [Victoza] 1.2 mg SUBCUT DAILY 03/16/16 [History] Ascorbic Acid [Vitamin C] 250 mg PO BID 08/31/18 [History] Atenolol 25 mg PO DAILY 08/31/18 [History] Biotin 300 mcg PO DAILY 08/31/18 [History] Ferrous Sulfate 325 mg PO TID 08/31/18 [History] Lisinopril 30 mg PO DAILY 08/31/18 [History] Ondansetron HCl [Zofran] 4 mg PO DAILY 08/31/18 [History] hydrOXYzine HCl [hydrOXYzine] 25 mg PO TID PRN 08/31/18 [History] Past Medical History HEENT History: Reports: Impaired Vision Cardiovascular History: Reports: High Cholesterol, Hypertension, [place] Respiratory History: Reports: COPD, Sleep Apnea Other Respiratory History: uses c-pap at home. 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 Musculoskeletal History: Reports: Arthritis, Back Pain, Chronic, Other (See Below) Other Musculoskeletal History: Neck and back Neurological History: Reports: CVA, Migraines, Neuropathy, Diabetic Psychiatric History: Reports: Anxiety, Depression, Panic Attack, Suicide Attempt Endocrine/Metabolic History: Reports: Diabetes, Type II, Obesity/BMI 30+ Hematologic History: Reports: Anemia Immunologic History: Reports: None Oncologic (Cancer) History: Reports: None Dermatologic History: Reports: None - Infectious Disease History Infectious Disease History: Reports: Chicken Pox, Measles, MRSA, Mumps - Past Surgical History Head Surgeries/Procedures: Reports: None GI Surgical History: Reports: Appendectomy Female Surgical History: Reports: D&C Social & Family History - Family History Family Medical History: Noncontributory - Tobacco Use Smoking Status *Q: Former Smoker Used Tobacco, but Quit: Yes Month/Year Tobacco Last Used: ? - Caffeine Use Caffeine Use: Reports: Coffee - Recreational Drug Use Recreational Drug Use: No ED ROS GENERAL - Review of Systems Review Of Systems: ROS reveals no pertinent complaints other than HPI. ED EXAM, GI/ABD - Physical Exam Exam: See Below Exam Limited By: No Limitations General Appearance: Alert, WD/WN, Mild Distress, Other (discomfort). No: Active Emesis Ears: Hearing Grossly Normal Throat/Mouth: Normal Voice, No Airway Compromise Head: Atraumatic Neck: Non-Tender, Full Range of Motion Respiratory/Chest: No Respiratory Distress Cardiovascular: Regular Rate, Rhythm GI/Abdominal Exam: Tender, Abnormal Bowel Sounds, Other (generalized discomfort , BS ileana). No: Distended, Guarding, Rigid, Rebound Neurological: Alert, Oriented, Normal Cognition, Normal Gait, No Motor/Sensory Deficits Psychiatric: Tearful Skin Exam: Warm, Dry, Normal Color Lymphatic: No Adenopathy Course - Vital Signs Last Recorded V/S: Last Vital Signs Temp 36.4 C 01/06/19 19:25 Pulse 103 H 01/06/19 19:25 Resp 16 01/06/19 19:25 BP 131/79 01/06/19 19:25 Pulse Ox 96 01/06/19 19:25 - Orders/Labs/Meds Labs: Laboratory Tests 01/06/19 01/06/19 01/06/19 Range/Units 17:45 17:52 18:05 WBC 10.7 H (5.0-10.0) 10^3/uL RBC 4.58 (4.2-5.4) 10^6/uL Hgb 12.3 D (12.0-16.0) g/dL Hct 38.9 (37.0-47.0) % MCV 84.9 D (80-100) fL MCH 26.9 L (27.0-34.0) pg MCHC 31.6 L (33.0-35.0) g/dL Plt Count 438 D (150-450) 10^3/uL Neut % (Auto) 75.6 H (42.2-75.2) % Lymph % (Auto) 17.2 L (20.5-50.1) % [place] % (Auto) 5.5 (2-8) % Eos % (Auto) 1.2 (1.0-3.0) % Baso % (Auto) 0.5 (0.0-1.0) % Sodium (135-145) mmol/L Potassium (3.6-5.0) mmol/L Chloride (101-111) mmol/L Carbon Dioxide (21.0-31.0) mmol/L Anion Gap BUN (7-18) mg/dL Creatinine (0.6-1.3) mg/dL Est Cr Clr Drug Dosing mL/min Estimated GFR (MDRD) BUN/Creatinine Ratio Glucose (74-105) mg/dL Calcium (8.4-10.2) mg/dl Total Bilirubin (0.2-1.0) mg/dL AST (10-42) IU/L ALT (10-60) IU/L Alkaline Phosphatase (42-121) IU/L Total Protein (6.7-8.2) g/dl Albumin (3.2-5.5) g/dl Globulin Albumin/Globulin Ratio Amylase (28-100) U/L Lipase (22-51) U/L Urine Color Dark yellow (YELLOW) Urine Appearance Cloudy (CLEAR) Urine pH 5.5 (5.0-9.0) Ur Specific [place] 1.025 (1.005-1.030) Urine Protein 30 H (NEGATIVE) Urine Glucose (UA) Negative (NEGATIVE) Urine Ketones Trace H (NEGATIVE) Urine Occult Blood Negative (NEGATIVE) Urine Nitrite Negative (NEGATIVE) Urine Bilirubin Negative (NEGATIVE) Urine Urobilinogen 0.2 (0.2-1.0) mg/dL Ur Leukocyte Esterase Negative (NEGATIVE) Urine RBC 0-5 /HPF Urine WBC 5-10 H (0-5/HPF) /HPF Ur Epithelial Cells Many H (NOT SEEN) /HPF Amorphous Sediment Few (NOT SEEN) /HPF Urine Bacteria Moderate H (0-FEW/HPF) /HPF Urine Mucus Moderate H (NOT SEEN) /LPF Urine Opiates Screen Negative (NEGATIVE) Ur Oxycodone Screen Negative (NEGATIVE) Urine Methadone Screen Negative (NEGATIVE) Ur Barbiturates Screen Negative (NEGATIVE) U Tricyclic Antidepress Negative (NEGATIVE) Ur Phencyclidine Scrn Negative (NEGATIVE) Ur Amphetamine Screen Negative (NEGATIVE) U Methamphetamines Scrn Negative (NEGATIVE) Urine MDMA Screen Negative (NEGATIVE) U Benzodiazepines Scrn Negative (NEGATIVE) Urine Cocaine Screen Negative (NEGATIVE) U Marijuana (THC) Screen Negative (NEGATIVE) 01/06/19 01/06/19 Range/Units 18:05 18:05 WBC (5.0-10.0) 10^3/uL RBC (4.2-5.4) 10^6/uL Hgb (12.0-16.0) g/dL Hct (37.0-47.0) % MCV (80-100) fL MCH (27.0-34.0) pg MCHC (33.0-35.0) g/dL Plt Count (150-450) 10^3/uL Neut % (Auto) (42.2-75.2) % Lymph % (Auto) (20.5-50.1) % [place] % (Auto) (2-8) % Eos % (Auto) (1.0-3.0) % Baso % (Auto) (0.0-1.0) % Sodium 137 (135-145) mmol/L Potassium 3.8 (3.6-5.0) mmol/L Chloride 110 (101-111) mmol/L Carbon Dioxide 18.0 L (21.0-31.0) mmol/L Anion Gap 12.8 BUN 17 (7-18) mg/dL Creatinine 0.8 (0.6-1.3) mg/dL Est Cr Clr Drug Dosing 67.28 mL/min Estimated GFR (MDRD) > 60 BUN/Creatinine Ratio 21.25 Glucose 138 H (74-105) mg/dL Calcium 9.3 (8.4-10.2) mg/dl Total Bilirubin 0.3 (0.2-1.0) mg/dL AST 23 (10-42) IU/L ALT 17 (10-60) IU/L Alkaline Phosphatase 79 (42-121) IU/L Total Protein 9.1 H (6.7-8.2) g/dl Albumin 3.9 (3.2-5.5) g/dl Globulin 5.2 Albumin/Globulin Ratio 0.75 Amylase 55 (28-100) U/L Lipase 60 H (22-51) U/L Urine Color (YELLOW) Urine Appearance (CLEAR) Urine pH (5.0-9.0) Ur Specific [place] (1.005-1.030) Urine Protein (NEGATIVE) Urine Glucose (UA) (NEGATIVE) Urine Ketones (NEGATIVE) Urine Occult Blood (NEGATIVE) Urine Nitrite (NEGATIVE) Urine Bilirubin (NEGATIVE) Urine Urobilinogen (0.2-1.0) mg/dL Ur Leukocyte Esterase (NEGATIVE) Urine RBC /HPF Urine WBC (0-5/HPF) /HPF Ur Epithelial Cells (NOT SEEN) /HPF Amorphous Sediment (NOT SEEN) /HPF Urine Bacteria (0-FEW/HPF) /HPF Urine Mucus (NOT SEEN) /LPF Urine Opiates Screen (NEGATIVE) Ur Oxycodone Screen (NEGATIVE) Urine Methadone Screen (NEGATIVE) Ur Barbiturates Screen (NEGATIVE) U Tricyclic Antidepress (NEGATIVE) Ur Phencyclidine Scrn (NEGATIVE) Ur Amphetamine Screen (NEGATIVE) U Methamphetamines Scrn (NEGATIVE) Urine MDMA Screen (NEGATIVE) U Benzodiazepines Scrn (NEGATIVE) Urine Cocaine Screen (NEGATIVE) U Marijuana (THC) Screen (NEGATIVE) Meds: Medications Discontinued Medications Generic Name Dose Route Start Last Admin Trade Name Freq PRN Reason Stop Dose Admin Cyclobenzaprine HCl 10 mg 01/06/19 18:47 01/06/19 18:52 Flexeril PO 01/06/19 18:48 10 mg ONETIME ONE Administration Iopamidol 100 ml 01/06/19 18:48 01/06/19 19:04 Isovue-300 (61%) IVPUSH 01/06/19 18:49 100 ml ONETIME ONE Administration - Re-Assessments/Exams Free Text/Narrative Re-Assessment/Exam: 01/06/19 21:13 results discussed with pt who is feeling better now Departure - Departure Time of Disposition: 21:15 Disposition: Home, Self-Care 01 Condition: Good Clinical Impression: Vomiting, Diarrhea, Gastroenteritis - Discharge Information Instructions: Viral Gastroenteritis, Adult, [id number] Forms: ED Department Discharge Additional Instructions: 1) avoid solid foods next 48 hours 2) follow up at clinic rx given; bentyl 10mg bid prn cramps x 6 zofran 4mg ODT bid prn vomiting imodium qid prn diarrhoea
[2019-01-06] MEDS ORDERED: Ondansetron 4 MG/2 ML SDV IV ONE (21:13)
[2019-01-06] MEDS ORDERED: Loperamide 2 MG Cap PO ONE (21:13)
[2019-01-06 21:33] VITALS: BP 141/83; PULSE 110
== END 2019-01-06 21:39 | disposition home or self-care (01) ==
LOC: DL.ED 16:51
DX: K52.9 Noninfective gastroenteritis and colitis, unspecified (principal); I10 Essential (primary) hypertension; E78.00 Pure hypercholesterolemia, unspecified; J44.9 Chronic obstructive pulmonary disease, unspecified; F41.9 Anxiety disorder, unspecified; F32.9 Major depressive disorder, single episode, unspecified; E11.9 Type 2 diabetes mellitus without complications; Z79.84 Long term (current) use of oral hypoglycemic drugs; Z79.82 Long term (current) use of aspirin; Z79.899 Other long term (current) drug therapy; Z87.891 Personal history of nicotine dependence; Z79.4 Long term (current) use of insulin; Z88.8 Allergy status to other drugs, medicaments and biological substances; Z91.09 Other allergy status, other than to drugs and biological substances
CPT/HCPCS: 36415; 74177; 80053; 80305; 81001; 82150; 83690; 85025; 96374; 99284; A9270; J2405; Q9967

== ENCOUNTER 2019-02-21 10:42 | Emergency (ER) | payer MEDICAID, OTHER ==
--- NOTE | 2019-02-21 11:01 | EDM.PDOC ---
ED HPI GENERAL MEDICAL PROBLEM - General Chief Complaint: Respiratory Problem Stated Complaint: SOB Time Seen by Provider: 02/21/19 11:01 Source of Information: Reports: Patient, Old Records, RN, RN Notes Reviewed History Limitations: Reports: No Limitations - History of Present Illness INITIAL COMMENTS - FREE TEXT/NARRATIVE: Pt presents to ER with c/o shortness of breath x4 days. Pt reports having cough with occ. sputum production, and wheezing. She has Hx of COPD and pneumonia. Pt admits to feeling hot and flushed but did not measure her temperature. She denies chest pain, N/V, or edema. 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 Headache Pain Score (Numeric/FACES): 8 - Related Data Allergies Allergy/AdvReac Type Severity Reaction Status Date / Time levonorgestrel Allergy Cannot Verified 02/21/19 11:01 Remember trazodone Allergy Swelling Verified 02/21/19 11:01 mint chocolate chip flavor Allergy Swelling Uncoded 02/21/19 11:01 seasonal Allergy Cannot Uncoded 02/21/19 11:01 Remember Home Meds: Home Meds Insulin Glarg,Human.Rec.Analog [Lantus Solostar] 43 units SQ BID 10/26/13 [ History] Acetaminophen [Tylenol Extra Strength] 1,000 mg PO Q6H PRN 11/17/14 [History] Albuterol [Proventil] 3 ml INH QID PRN 11/17/14 [History] Albuterol/Ipratropium [Combivent] 1 puff INH Q4H PRN 11/17/14 [History] Aspirin 325 mg PO DAILY 11/17/14 [History] Budesonide/Formoterol [Symbicort 80-4.5 MCG] 2 puff INH BID 11/17/14 [History] EPINEPHrine [Epipen] 0.3 ml SUBCUT ASDIRECTED PRN 11/17/14 [History] Fluticasone Propionate [Flonase] 2 sprays NASBOTH DAILY 11/17/14 [History] Ibuprofen 800 mg PO ASDIRECTED PRN 11/17/14 [History] Insulin Lispro [HumaLOG] 2 units SUBCUT ASDIRECTED PRN 11/17/14 [History] Lactobacillus Acidophilus [Probiotic] 1 tab PO DAILY 11/17/14 [History] Pantoprazole [Protonix] 40 mg PO DAILY 11/17/14 [History] tiZANidine [Zanaflex] 4 mg PO Q8HR PRN 02/20/15 [History] DULoxetine [Cymbalta] 120 mg PO DAILY 08/01/15 [History] Gabapentin [Neurontin] 400 mg PO TID 08/01/15 [History] Pravastatin [Pravachol] 20 mg PO BEDTIME 08/01/15 [History] buPROPion [Wellbutrin] 50 mg PO BID 08/01/15 [History] Hydrocodone/Acetaminophen [Hydrocodon-Acetaminophen 5-325] 10 mg PO Q6HR PRN [History] Zolpidem [Ambien] 1 tab PO BEDTIME PRN 12/15/15 [History] metFORMIN [Glucophage XR] 1,000 mg PO BIDAC 12/15/15 [History] Liraglutide [Victoza] 1.2 mg SUBCUT DAILY 03/16/16 [History] Ascorbic Acid [Vitamin C] 250 mg PO BID 08/31/18 [History] Atenolol 25 mg PO DAILY 08/31/18 [History] Biotin 300 mcg PO DAILY 08/31/18 [History] Ferrous Sulfate 325 mg PO TID 08/31/18 [History] Lisinopril 30 mg PO DAILY 08/31/18 [History] Ondansetron HCl [Zofran] 4 mg PO DAILY 08/31/18 [History] hydrOXYzine HCl [hydrOXYzine] 25 mg PO TID PRN 08/31/18 [History] Past Medical History HEENT History: Reports: Impaired Vision Cardiovascular History: Reports: High Cholesterol, Hypertension, [place] Respiratory History: Reports: COPD, Sleep Apnea Other Respiratory History: uses c-pap at home. 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 Musculoskeletal History: Reports: Arthritis, Back Pain, Chronic, Other (See Below) Other Musculoskeletal History: Neck and back Neurological History: Reports: CVA, Migraines, Neuropathy, Diabetic Psychiatric History: Reports: Anxiety, Depression, Panic Attack, Suicide Attempt Endocrine/Metabolic History: Reports: Diabetes, Type II, Obesity/BMI 30+ Hematologic History: Reports: Anemia Immunologic History: Reports: None Oncologic (Cancer) History: Reports: None Dermatologic History: Reports: None - Infectious Disease History Infectious Disease History: Reports: Chicken Pox, Measles, MRSA, Mumps - Past Surgical History Head Surgeries/Procedures: Reports: None GI Surgical History: Reports: Appendectomy Female Surgical History: Reports: D&C Social & Family History - Family History Family Medical History: Noncontributory - Tobacco Use Smoking Status *Q: Former Smoker - Caffeine Use Caffeine Use: Reports: Coffee - Living Situation & Occupation Living situation: Reports: with Family Occupation: Unemployed ED ROS GENERAL - Review of Systems Review Of Systems: ROS reveals no pertinent complaints other than HPI. ED EXAM, GENERAL - Physical Exam Exam: See Below Exam Limited By: No Limitations General Appearance: Alert, WD/WN, No Apparent Distress, Obese Eye Exam: Bilateral Eye: Normal Inspection Ears: Normal External Exam, Normal Canal, Hearing Grossly Normal, Normal TMs Nose: No Blood, Nasal Drainage (mild congestion) Throat/Mouth: Normal Inspection, Normal Lips, Normal Teeth, Normal Gums, Normal Oropharynx, Normal Voice, No Airway Compromise Head: Atraumatic, Normocephalic Neck: Normal Inspection, Supple, Non-Tender, Full Range of Motion. No: Lymphadenopathy (L), Lymphadenopathy (R) Respiratory/Chest: No Respiratory Distress, No Accessory Muscle Use, Chest Non- Tender, Decreased Breath Sounds, Rhonchi (faint at the Rt base), Wheezing. No: Crackles, Rales, Stridor Cardiovascular: Normal Peripheral Pulses, Regular Rate, Rhythm, No Edema, No Gallop, No JVD, No Murmur, No Rub GI/Abdominal: Normal Bowel Sounds, Soft, Non-Tender, No Organomegaly, No Distention, No Abnormal Bruit, No Mass (Female) Exam: Deferred Rectal (Female) Exam: Deferred Back Exam: Normal Inspection Extremities: Normal Inspection, Normal Range of Motion, Non-Tender, Normal Capillary Refill, No Pedal Edema Neurological: Alert, Oriented, CN II-XII Intact, Normal Cognition, Normal Gait, No Motor/Sensory Deficits Psychiatric: Normal Affect, Normal Mood Skin Exam: Warm, Dry, Intact, Normal Color, No Rash Course - Vital Signs Last Recorded V/S: Last Vital Signs Temp 97.8 F 02/21/19 12:38 Pulse 92 02/21/19 12:38 Resp 18 02/21/19 12:38 BP 130/79 02/21/19 12:38 Pulse Ox 99 02/21/19 12:38 - Orders/Labs/Meds Orders: Active Orders 24 hr Category Date Time Status Peripheral IV Care [RC] . DIRECTED Care 02/21/19 11:07 Active RT Aerosol Therapy [] ASDIRECTED Care 02/21/19 11:07 Active CULTURE STREP A CONFIRMATION [] Stat Lab 02/21/19 11:15 Results STREP SCRN A RAPID W CULT CONF [] Stat Lab 02/21/19 11:15 Results Levofloxacin/Dextrose 5%-Water [Levaquin in D5W 750 MG/ Med 02/21/19 12:35 Active 150 ML] 750 mg Premix Bag 1 bag IV ONETIME Sodium Chloride 0.9% [Saline Flush] Med 02/21/19 11:07 Active 10 ml FLUSH ASDIRECTED PRN Peripheral IV Insertion Adult [OM.PC] Stat Oth 02/21/19 11:06 Ordered Medication Orders Levofloxacin/Dextrose 750 mg/ (Premix) 150 mls @ 100 mls/hr IV ONETIME ONE Stop: 02/21/19 14:04 Last Admin: 02/21/19 12:59 Dose: 100 mls/hr Sodium Chloride (Saline Flush) 10 ml FLUSH ASDIRECTED PRN PRN Reason: Keep Vein Open Last Admin: 02/21/19 11:24 Dose: 10 ml Labs: Laboratory Tests 02/21/19 02/21/19 Range/Units 11:17 11:17 WBC 5.0 (5.0-10.0) 10^3/uL RBC 3.93 L (4.2-5.4) 10^6/uL Hgb 10.9 L (12.0-16.0) g/dL Hct 33.9 L (37.0-47.0) % MCV 86.3 (80-100) fL MCH 27.7 (27.0-34.0) pg MCHC 32.2 L (33.0-35.0) g/dL Plt Count 279 D (150-450) 10^3/uL Neut % (Auto) 56.0 (42.2-75.2) % Lymph % (Auto) 29.0 (20.5-50.1) % [place] % (Auto) 11.2 H (2-8) % Eos % (Auto) 3.2 H (1.0-3.0) % Baso % (Auto) 0.6 (0.0-1.0) % Sodium 136 (135-145) mmol/L Potassium 3.8 (3.6-5.0) mmol/L Chloride 107 (101-111) mmol/L Carbon Dioxide 20.0 L (21.0-31.0) mmol/L Anion Gap 12.8 BUN 9 (7-18) mg/dL Creatinine 0.7 (0.6-1.3) mg/dL Est Cr Clr Drug Dosing 76.89 mL/min Estimated GFR (MDRD) > 60 BUN/Creatinine Ratio 12.85 Glucose 116 H (74-105) mg/dL Calcium 8.9 (8.4-10.2) mg/dl Total Bilirubin 0.6 (0.2-1.0) mg/dL AST 22 (10-42) IU/L ALT 16 (10-60) IU/L Alkaline Phosphatase 71 (42-121) IU/L Total Protein 8.0 (6.7-8.2) g/dl Albumin 3.5 (3.2-5.5) g/dl Globulin 4.5 Albumin/Globulin Ratio 0.78 Meds: Medications Generic Name Dose Route Start Last Admin Trade Name Freq PRN Reason Stop Dose Admin Levofloxacin/Dextrose 750 mg/ 150 mls @ 100 mls/hr 02/21/19 12:35 02/21/19 12 :59 Premix IV 02/21/19 14:04 100 mls/hr ONETIME ONE Administration Sodium Chloride 10 ml 02/21/19 11:07 02/21/19 11:24 Saline Flush FLUSH 10 ml ASDIRECTED PRN Administration Keep Vein Open Discontinued Medications Generic Name Dose Route Start Last Admin Trade Name Freq PRN Reason Stop Dose Admin Albuterol/Ipratropium 3 ml 02/21/19 11:07 02/21/19 11:24 Duoneb 3.0-0.5 Mg/3 Ml NEB 07/02/19 11:08 3 ml ONETIME ONE Administration Methylprednisolone Sodium Succinate 125 mg 02/21/19 11:07 02/21/19 11:24 Solu-Medrol IVPUSH 02/21/19 11:08 125 mg ONETIME ONE Administration - Radiology Interpretation Free Text/Narrative:: [facility] [place] [facility] Final Radiology Report Call: [phone] assistance Online chat: [email or web address] Name: KARI RIBEIRO Age: 48Years F Date: 02/21/2019 SSN: -- : [id number] Study: XR CHEST 2 VIEWS FRONTAL & LAT Requesting Physician: RAMIRO ANDREW Images: 2 Addl Studies: Provided Clinical History: Contrast: Contrast Medium: Contrast Amount: Contrast Method: CONFIDENTIALITY STATEMENT This report is intended only for use by the referring physician, and only in accordance with law. If you received this in error, call [phone]. Page 1 of 1 EXAM: XR Chest, 2 Views EXAM DATE/TIME: 02/21/2019 11:46 AM CLINICAL HISTORY: 48 years old, female; Cough and dyspnea TECHNIQUE: Imaging protocol: XR of the chest, 2 views. COMPARISON: CR Chest 2V 03/12/2018 1:28 PM FINDINGS: Lungs: The lungs are clear bilaterally. The pulmonary vasculature is normal. Pleural space: No pleural effusion. No pneumothorax. Heart/Mediastinum: The heart is normal in size and contour. Mediastinum: Stable. Vasculature: Moderate tortuosity/ectasia of the ascending thoracic aorta. Bones/joints: Stable. IMPRESSION: No acute cardiopulmonary abnormality identified. Thank you for allowing us to participate in the care of your patient. Dictated and Authenticated by: Ari Huang MD 02/21/2019 12:49 PM Central Time ([place] & [place]) - Re-Assessments/Exams Free Text/Narrative Re-Assessment/Exam: 02/21/19 14:06 Chest XR read as normal, but Hx, exam and x-ray are consistent with an early right lower lobe pneumonia. Departure - Departure Time of Disposition: 13:42 Disposition: Home, Self-Care 01 Condition: Fair Clinical Impression: Acute exacerbation of chronic obstructive pulmonary disease (COPD) Pneumonia Qualifiers: Pneumonia type: due to unspecified organism Laterality: right Lung location: lower lobe of lung Qualified Code(s): J18.1 - Lobar pneumonia, unspecified organism - Discharge Information *PRESCRIPTION DRUG MONITORING PROGRAM REVIEWED*: No *COPY OF PRESCRIPTION DRUG MONITORING REPORT IN PATIENT VIKKI: No Instructions: Chronic Obstructive Pulmonary Disease Exacerbation, [id number] , Community-Acquired Pneumonia, Adult, [id number] Forms: ED Department Discharge Additional Instructions: Rx: Levaquin 500mg Rx: DuoNeb nebulizer solution Rx: Prednisone 20mg Follow up in clinic in 3 to 5 days. Return to ER if worse at any time. - My Orders Last 24 Hours: My Active Orders 02/21/19 11:06 Peripheral IV Insertion Adult [OM.PC] Stat 02/21/19 11:07 Peripheral IV Care [RC] . DIRECTED RT Aerosol Therapy [RC] ASDIRECTED Sodium Chloride 0.9% [Saline Flush] 10 ml FLUSH ASDIRECTED PRN 02/21/19 11:15 CULTURE STREP A CONFIRMATION [RM] Stat STREP SCRN A RAPID W CULT CONF [RM] Stat 02/21/19 12:35 Levofloxacin/Dextrose 5%-Water [Levaquin in D5W 750 MG/150 ML] 750 mg Premix Bag 1 bag IV ONETIME - Assessment/Plan Last 24 Hours: My Active Orders 02/21/19 11:06 Peripheral IV Insertion Adult [OM.PC] Stat 02/21/19 11:07 Peripheral IV Care [RC] . DIRECTED RT Aerosol Therapy [RC] ASDIRECTED Sodium Chloride 0.9% [Saline Flush] 10 ml FLUSH ASDIRECTED PRN 02/21/19 11:15 CULTURE STREP A CONFIRMATION [RM] Stat STREP SCRN A RAPID W CULT CONF [RM] Stat 02/21/19 12:35 Levofloxacin/Dextrose 5%-Water [Levaquin in D5W 750 MG/150 ML] 750 mg Premix Bag 1 bag IV ONETIME
[2019-02-21] MEDS ORDERED: methylPREDNISolone Sodium Succinate 125 MG/2 ML SDV IVPUSH ONE (11:07)
[2019-02-21] MEDS ORDERED: Sodium Chloride 0.9% 10 ML Syringe FLUSH PRN (11:07)
[2019-02-21] MEDS ORDERED: Albuterol/Ipratropium 3.0-0.5 MG/3 ML Neb Soln NEB ONE (11:07)
[2019-02-21 11:47] LABS: ANION GAP 12.8; CHLORIDE,CL 107 mmol/L (101-111); SODIUM,NA 136 mmol/L (135-145)
[2019-02-21] MEDS ORDERED: Levofloxacin/Dextrose 5%-Water 750 MG in Premix Bag 1 BAG IV ONE (12:35)
[2019-02-21 12:39] VITALS: BP 130/79
== END 2019-02-21 14:35 | disposition home or self-care (01) ==
LOC: DL.ED 10:42
DX: J44.1 Chronic obstructive pulmonary disease with (acute) exacerbation (principal); J18.1 Lobar pneumonia, unspecified organism; F41.9 Anxiety disorder, unspecified; F32.9 Major depressive disorder, single episode, unspecified; E11.40 Type 2 diabetes mellitus with diabetic neuropathy, unspecified; I10 Essential (primary) hypertension; E78.00 Pure hypercholesterolemia, unspecified; K21.9 Gastro-esophageal reflux disease without esophagitis; I25.2 Old myocardial infarction; Z79.4 Long term (current) use of insulin; Z79.82 Long term (current) use of aspirin; Z79.899 Other long term (current) drug therapy; Z91.09 Other allergy status, other than to drugs and biological substances; Z91.018 Allergy to other foods; Z88.8 Allergy status to other drugs, medicaments and biological substances; Z87.891 Personal history of nicotine dependence
CPT/HCPCS: 36415; 71046; 80053; 85025; 87081; 87430; 94640; 96365; 96366; 96375; 99284; A4217; J1956; J2930; J7620-GY

== ENCOUNTER 2019-10-18 15:22 | Emergency (ER) | payer MEDICAID, OTHER ==
[2019-10-18 15:33] VITALS: BP 166/93; PULSE 94
--- NOTE | 2019-10-18 16:07 | EDM.PDOC ---
<Alf Shah - Last Filed: 10/18/19 16:40> ED HPI GENERAL MEDICAL PROBLEM - General Chief Complaint: Chest Pain Stated Complaint: CANT BREATH Time Seen by Provider: 10/18/19 16:02 Source of Information: Reports: Patient, RN, RN Notes Reviewed History Limitations: Reports: No Limitations - History of Present Illness INITIAL COMMENTS - FREE TEXT/NARRATIVE: 48 y.o F presents to the ER with chest pain to the L side chest, L side arm pain , SOB, and productive green thick cough x 3 days. Patient reports grandson was recently dx with influenza. HX of asthma, last neb treatment at 1130 AM, hasn't helped much with the shortness of breath. Patient also reports taking a nitro at 0400 this AM, unsure if it really helped relieve pain or not. Patient does report feeling feverish. Ibuprofen this AM, Tylenol 650 mg @ 1300. She states her chest pain is chronic and has had it for a long time. She has been feeling more numbness and tingly sensation on her left side but has been told she has a pinched nerve in her cervical spine. She is also waiting to get scheduled to get her gallbladder removed and has been waiting since June of last year. She is having some abdominal pain in the RUQ and some tenderness with palpation in the RUQ as well. Onset: Gradual Onset Date: 10/13/19 Duration: Getting Worse Location: Reports: Head, Face, Chest, Abdomen (RUQ) Quality: Reports: Ache Severity: Mild Improves with: Reports: None Worsens with: Reports: None Associated Symptoms: Reports: Chest Pain (chronic), cough w sputum, Fever/Chills , Headaches, Loss of Appetite, Nausea/Vomiting, Shortness of Breath. Denies: Syncope Treatments TALENT SPECIALIST: Reports: Acetaminophen, Aspirin, Breathing Treatments, Nitroglycerin, NSAIDS Chest Pain Score (Numeric/FACES): 8 - Related Data Allergies Allergy/AdvReac Type Severity Reaction Status Date / Time levonorgestrel Allergy Cannot Verified 10/18/19 15:33 Remember trazodone Allergy Swelling Verified 10/18/19 15:33 mint chocolate chip flavor Allergy Swelling Uncoded 10/18/19 15:33 seasonal Allergy Cannot Uncoded 10/18/19 15:33 Remember Home Meds: Home Meds Insulin Glarg,Human.Rec.Analog [Lantus Solostar] 43 units SQ BID 10/26/13 [ History] Acetaminophen [Tylenol Extra Strength] 1,000 mg PO Q6H PRN 11/17/14 [History] Albuterol [Proventil] 3 ml INH QID PRN 11/17/14 [History] Albuterol/Ipratropium [Combivent] 1 puff INH Q4H PRN 11/17/14 [History] Aspirin 325 mg PO DAILY 11/17/14 [History] Budesonide/Formoterol [Symbicort 80-4.5 MCG] 2 puff INH BID 11/17/14 [History] EPINEPHrine [Epipen] 0.3 ml SUBCUT ASDIRECTED PRN 11/17/14 [History] Fluticasone Propionate [Flonase] 2 sprays NASBOTH DAILY 11/17/14 [History] Ibuprofen 800 mg PO ASDIRECTED PRN 11/17/14 [History] Insulin Lispro [HumaLOG] 2 units SUBCUT ASDIRECTED PRN 11/17/14 [History] Lactobacillus Acidophilus [Probiotic] 1 tab PO DAILY 11/17/14 [History] Pantoprazole [Protonix] 40 mg PO DAILY 11/17/14 [History] tiZANidine [Zanaflex] 4 mg PO Q8HR PRN 02/20/15 [History] DULoxetine [Cymbalta] 120 mg PO DAILY 08/01/15 [History] Gabapentin [Neurontin] 400 mg PO TID 08/01/15 [History] Pravastatin [Pravachol] 20 mg PO BEDTIME 08/01/15 [History] buPROPion [Wellbutrin] 50 mg PO BID 08/01/15 [History] Hydrocodone/Acetaminophen [Hydrocodon-Acetaminophen 5-325] 10 mg PO Q6HR PRN [History] Zolpidem [Ambien] 1 tab PO BEDTIME PRN 12/15/15 [History] metFORMIN [Glucophage XR] 1,000 mg PO BIDAC 12/15/15 [History] Liraglutide [Victoza] 1.2 mg SUBCUT DAILY 03/16/16 [History] Ascorbic Acid [Vitamin C] 250 mg PO BID 08/31/18 [History] Biotin 300 mcg PO DAILY 08/31/18 [History] Ferrous Sulfate 325 mg PO TID 08/31/18 [History] Lisinopril 30 mg PO DAILY 08/31/18 [History] Ondansetron HCl [Zofran] 4 mg PO DAILY 08/31/18 [History] atenoloL [Atenolol] 25 mg PO DAILY 08/31/18 [History] hydrOXYzine HCL [hydrOXYzine] 25 mg PO TID PRN 08/31/18 [History] Nitroglycerin 0.4 mg SL ASDIRECTED PRN 10/18/19 [History] Past Medical History HEENT History: Reports: Impaired Vision Cardiovascular History: Reports: High Cholesterol, Hypertension, OR Respiratory History: Reports: Asthma, COPD, Sleep Apnea Other Respiratory History: uses c-pap at home. 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 Musculoskeletal History: Reports: Arthritis, Back Pain, Chronic, Other (See Below) Other Musculoskeletal History: Neck and back Neurological History: Reports: CVA, Migraines, Neuropathy, Diabetic Psychiatric History: Reports: Anxiety, Depression, Panic Attack, Suicide Attempt Endocrine/Metabolic History: Reports: Diabetes, Type II, Obesity/BMI 30+ Hematologic History: Reports: Anemia Immunologic History: Reports: None Oncologic (Cancer) History: Reports: None Dermatologic History: Reports: None - Infectious Disease History Infectious Disease History: Reports: Chicken Pox, Measles, MRSA, Mumps - Past Surgical History Head Surgeries/Procedures: Reports: None GI Surgical History: Reports: Appendectomy Female Surgical History: Reports: D&C Social & Family History - Family History Family Medical History: Noncontributory - Tobacco Use Smoking Status *Q: Former Smoker Used Tobacco, but Quit: Yes Month/Year Tobacco Last Used: 08/2008 - Caffeine Use Caffeine Use: Reports: None - Recreational Drug Use Recreational Drug Use: No - Living Situation & Occupation Living situation: Reports: with Family Occupation: Unemployed ED ROS GENERAL - Review of Systems Review Of Systems: Comprehensive ROS is negative, except as noted in HPI. ED EXAM, GENERAL - Physical Exam Exam: See Below Exam Limited By: No Limitations General Appearance: Alert, WD/WN, No Apparent Distress Ears: Normal External Exam, Normal Canal, Hearing Grossly Normal, Normal TMs Ear Exam: Bilateral Ear: Auricle Normal, Canal Normal, TM normal Nose: Normal Inspection, Normal Mucosa, No Blood Throat/Mouth: Normal Inspection, Normal Lips, Normal Teeth, Normal Gums, Normal Oropharynx, Normal Voice, No Airway Compromise Head: Atraumatic, Normocephalic Neck: Normal Inspection, Supple, Non-Tender, Full Range of Motion Respiratory/Chest: No Respiratory Distress, No Accessory Muscle Use, Chest Non- Tender, Wheezing (left lower lobe). No: Decreased Breath Sounds, Crackles Cardiovascular: Normal Peripheral Pulses, Regular Rate, Rhythm, No Edema, No Gallop, No JVD, No Murmur, No Rub GI/Abdominal: Normal Bowel Sounds, Soft, No Organomegaly, No Distention, No Abnormal Bruit, No Mass, Tender (RUQ). No: Guarding, Rigid (Female) Exam: Deferred Rectal (Female) Exam: Deferred Extremities: Normal Inspection, Normal Range of Motion, Non-Tender, Normal Capillary Refill, No Pedal Edema Neurological: Alert, Oriented, CN II-XII Intact, Normal Cognition, Normal Gait, Normal Reflexes, No Motor/Sensory Deficits Psychiatric: Normal Affect, Normal Mood Skin Exam: Warm, Dry, Intact, Normal Color, No Rash Course - Vital Signs Last Recorded V/S: Last Vital Signs Temp 36.6 C 10/18/19 15:26 Pulse 94 10/18/19 15:26 Resp 22 H 10/18/19 15:26 BP 166/93 H 10/18/19 15:26 Pulse Ox 99 10/18/19 15:26 - Orders/Labs/Meds Orders: Active Orders 24 hr Category Date Time Status EKG Documentation Completion [RC] URGENT Care 10/18/19 15:27 Active CULTURE BLOOD [BC] Stat Lab 10/18/19 15:43 Received Labs: Laboratory Tests 10/18/19 10/18/19 10/18/19 Range/Units 15:43 15:43 15:43 WBC 7.9 (5.0-10.0) 10^3/uL RBC 3.94 L (4.2-5.4) 10^6/uL Hgb 11.4 L (12.0-16.0) g/dL Hct 35.0 L (37.0-47.0) % MCV 88.8 (80-100) fL MCH 28.9 (27.0-34.0) pg MCHC 32.6 L (33.0-35.0) g/dL Plt Count 267 (150-450) 10^3/uL Neut % (Auto) 71.3 (42.2-75.2) % Lymph % (Auto) 18.5 L (20.5-50.1) % [place] % (Auto) 8.2 H (2-8) % Eos % (Auto) 1.9 (1.0-3.0) % Baso % (Auto) 0.1 (0.0-1.0) % Sodium 136 (135-145) mmol/L Potassium 4.0 (3.6-5.0) mmol/L Chloride 105 (101-111) mmol/L Carbon Dioxide 23.0 (21.0-31.0) mmol/L Anion Gap 12.0 BUN 12 (7-18) mg/dL Creatinine 0.6 (0.6-1.3) mg/dL Est Cr Clr Drug Dosing 89.70 mL/min Estimated GFR (MDRD) > 60 BUN/Creatinine Ratio 20.00 Glucose 165 H (74-105) mg/dL Lactic Acid 1.7 (0.5-2.0) mmol/L Calcium 9.1 (8.4-10.2) mg/dl Total Bilirubin 0.3 (0.2-1.0) mg/dL AST 24 (10-42) IU/L ALT 17 (10-60) IU/L Alkaline Phosphatase 84 (42-121) IU/L Troponin I < 0.02 (0.00-0.02) ng/ml Total Protein 7.7 (6.7-8.2) g/dl Albumin 3.6 (3.2-5.5) g/dl Globulin 4.1 Albumin/Globulin Ratio 0.88 Influenza A: Negative Influenza B: Positive Departure - Departure Time of Disposition: 16:41 Disposition: Home, Self-Care 01 Condition: Fair Clinical Impression: Influenza B - Discharge Information *PRESCRIPTION DRUG MONITORING PROGRAM REVIEWED*: Not Applicable *COPY OF PRESCRIPTION DRUG MONITORING REPORT IN PATIENT VIKKI: Not Applicable Instructions: Cool Mist Vaporizer, Influenza, Adult, [id number], Nonspecific Chest Pain, [id number], Preventing Influenza, Adult Forms: ED Department Discharge Additional Instructions: Lab results and x-rays were discussed with patient during visit. Patient is outside the treatment window for the medication Tamiflu. Symptoms of Influenza B are self-limiting and will resolve after 7-10 days. Continue using breathing treatments at home and use cool mist humidifiers at night to help breathing as well. You can use ibuprofen and tylenol for pain and fever control. Drink plenty of fluids to maintain hydration and rest. If symptoms do not resolve after 10 days or get worse follow-up with primary care provider in clinic. Sepsis Event Note - Evaluation Sepsis Screening Result: No Definite Risk - Focused Exam Vital Signs: Vital Signs Temp Pulse Resp BP Pulse Ox 10/18/19 15:26 36.6 C 94 22 H 166/93 H 99 Date Exam was Performed: 10/18/19 Time Exam was Performed: 16:40 - My Orders Last 24 Hours: My Active Orders 10/18/19 15:27 EKG Documentation Completion [RC] URGENT 10/18/19 15:43 CULTURE BLOOD [BC] Stat - Assessment/Plan Last 24 Hours: My Active Orders 10/18/19 15:27 EKG Documentation Completion [RC] URGENT 10/18/19 15:43 CULTURE BLOOD [BC] Stat <Carlos Malik - Last Filed: 10/18/19 16:52> Course - Re-Assessments/Exams Free Text/Narrative Re-Assessment/Exam: 10/18/19 16:52 I have examined the patient. I have discussed findings and treatment plan with the PA student. I agree with the assessment and plan in the following students note. Sepsis Event Note - Focused Exam Date Exam was Performed: 10/18/19 Time Exam was Performed: 16:52
[2019-10-18 16:17] LABS: CHLORIDE,CL 105 mmol/L (101-111); SODIUM,NA 136 mmol/L (135-145)
--- NOTE | 2019-10-18 16:25 | CR ---
EXAMINATION: Chest 1V Frontal SEX: Female AGE: 48 years CLINICAL HISTORY: 48-year-old morbidly obese female complaining of chest pain and short of breath (SOB). INTERPRETATION: (Upright AP portable) No acute new cardiopulmonary abnormality since to February 2019 comparison film. 1. Reasonable inspiratory effort this patient with pickwickian body habitus. 2. Normal cardiac silhouette without pulmonary vascular congestion, cephalization of flow or alveolar edema. 3. No new lung mass or hilar lymphadenopathy. 4. No new focal lobar consolidation (atelectasis or infiltrate). 5. No pleural effusions. 6. No pneumothorax or pneumomediastinum. No free subdiaphragmatic air. Normal midline tracheal airway. CONCLUSION: Negative exam.
== END 2019-10-18 17:00 | disposition home or self-care (01) ==
LOC: DL.ED 15:22
DX: J10.1 Influenza due to other identified influenza virus with other respiratory manifestations (principal); I25.2 Old myocardial infarction; E66.9 Obesity, unspecified; D64.9 Anemia, unspecified; F41.9 Anxiety disorder, unspecified; F32.9 Major depressive disorder, single episode, unspecified; E11.9 Type 2 diabetes mellitus without complications; Z88.8 Allergy status to other drugs, medicaments and biological substances; Z87.891 Personal history of nicotine dependence; Z79.4 Long term (current) use of insulin; Z79.82 Long term (current) use of aspirin; Z79.899 Other long term (current) drug therapy
CPT/HCPCS: 36415; 71045; 80053; 83605; 84484; 85025; 87040; 87804; 93005; 99285-25

== ENCOUNTER 2020-04-26 07:34 | Inpatient (IN) | payer MEDICAID, OTHER ==
--- NOTE | 2020-04-26 08:38 | EDM.PDOC ---
ED HPI GENERAL MEDICAL PROBLEM - General Chief Complaint: General Stated Complaint: IN BY AMBULANCE Time Seen by Provider: 04/26/20 07:35 Source of Information: Reports: Patient, EMS, Old Records, RN, RN Notes Reviewed History Limitations: Reports: Altered Mental Status, Uncooperative - History of Present Illness INITIAL COMMENTS - FREE TEXT/NARRATIVE: Pt arrives to ER from home by [facility] with c/o left sided "total body pain" and weakness. Pt initially uncooperative in answering questions, and easily agitated, but after return from CT began to cooperate better. She reports onset last evening at 1800HRS of right sided facial numbness and tingling and the right half of her tongue felt numb. Denies headache, visual changes, slurred speech, aphasia, or difficulty swallowing. Shortly after the onset of the facial symptoms she went into her bathroom and had sudden onset of left arm and leg weakness with tingling and pain. The weakness was severe enough to cause her to fall. She states she struck her head and she thinks she had a brief LOC. She required the assistance of a grandson to get up. Her left ribs and chest hurt, so she took 3 tablets of Nitroglycerin, but it did not relieve the pain. She tried to get her grandson to help her and to call 911, but states he is young and shy and somehow she ended up sleeping through the night at home. This morning she fell several times trying to get through the house to get the grandson to help her, and eventually called 911. Onset: Unknown/Unsure Onset Date: 04/25/20 Duration: Hour(s): (8-12) - Related Data Allergies Allergy/AdvReac Type Severity Reaction Status Date / Time levonorgestrel Allergy Cannot Verified 01/01/20 13:51 Remember trazodone Allergy Swelling Verified 01/01/20 13:51 mint chocolate chip flavor Allergy Swelling Uncoded 01/01/20 13:51 seasonal Allergy Cannot Uncoded 01/01/20 13:51 Remember Home Meds: Home Meds Acetaminophen [Tylenol Extra Strength] 1,000 mg PO Q6H PRN 11/17/14 [History] Albuterol [Proventil] 3 ml INH QID PRN 11/17/14 [History] Albuterol/Ipratropium [Combivent] 1 puff INH Q4H PRN 11/17/14 [History] Aspirin 325 mg PO DAILY 11/17/14 [History] Budesonide/Formoterol [Symbicort 80-4.5 MCG] 2 puff INH BID 11/17/14 [History] EPINEPHrine [Epipen] 0.3 ml SUBCUT ASDIRECTED PRN 11/17/14 [History] Fluticasone Propionate [Flonase] 2 sprays NASBOTH DAILY 11/17/14 [History] Lactobacillus Acidophilus [Probiotic] 1 tab PO DAILY 11/17/14 [History] Pantoprazole [Protonix] 40 mg PO DAILY 11/17/14 [History] tiZANidine [Zanaflex] 4 mg PO Q8HR PRN 02/20/15 [History] DULoxetine [Cymbalta] 120 mg PO DAILY 08/01/15 [History] Pravastatin [Pravachol] 20 mg PO BEDTIME 08/01/15 [History] buPROPion [Wellbutrin] 150 mg PO DAILY 08/01/15 [History] metFORMIN [Glucophage XR] 1,000 mg PO ASDIRECTED 12/15/15 [History] Liraglutide [Victoza] 1.2 mg SUBCUT DAILY 03/16/16 [History] Ascorbic Acid [Vitamin C] 250 mg PO BID 08/31/18 [History] Biotin 300 mcg PO DAILY 08/31/18 [History] Ferrous Sulfate 325 mg PO BID 08/31/18 [History] Lisinopril 30 mg PO DAILY 08/31/18 [History] atenoloL [Atenolol] 25 mg PO DAILY 08/31/18 [History] hydrOXYzine HCL [hydrOXYzine] 25 mg PO TID PRN 08/31/18 [History] ondansetron HCL [Zofran] 4 mg PO DAILY 08/31/18 [History] Nitroglycerin 0.4 mg SL ASDIRECTED PRN 10/18/19 [History] Gabapentin [Neurontin] 600 mg PO TID 01/01/20 [History] Insulin Detemir [Levemir] 40 - 43 units INJECT ASDIRECTED 01/01/20 [History] Multivitamin with Minerals [Multiple Vitamin] 1 tab PO DAILY 01/01/20 [History] Past Medical History HEENT History: Reports: Impaired Vision Cardiovascular History: Reports: CAD, High Cholesterol, Hypertension, CA Respiratory History: Reports: Asthma, COPD, Sleep Apnea Other Respiratory History: uses c-pap at home. 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 Musculoskeletal History: Reports: Arthritis, Back Pain, Chronic, Neck Pain, Chronic, Other (See Below) Other Musculoskeletal History: Neck and back Neurological History: Reports: CVA, Migraines, Neuropathy, Diabetic Psychiatric History: Reports: Anxiety, Depression, Panic Attack, Suicide Attempt Endocrine/Metabolic History: Reports: Diabetes, Type II, Obesity/BMI 30+ Hematologic History: Reports: Anemia Immunologic History: Reports: None Oncologic (Cancer) History: Reports: None Dermatologic History: Reports: None - Infectious Disease History Infectious Disease History: Reports: Chicken Pox, Measles, MRSA, Mumps - Past Surgical History Head Surgeries/Procedures: Reports: None HEENT Surgical History: Reports: None Cardiovascular Surgical History: Reports: None Respiratory Surgical History: Reports: None GI Surgical History: Reports: Appendectomy Female Surgical History: Reports: D&C, Other (See Below) Other Female Surgeries/Procedures: 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 Neurological Surgical History: Reports: None Musculoskeletal Surgical History: Reports: None Social & Family History - Family History Family Medical History: Noncontributory - Tobacco Use Smoking Status *Q: Former Smoker - Caffeine Use Caffeine Use: Reports: Coffee Caffeine Use Comment: 2 cups coffee daily - Alcohol Use Alcohol Use History: No - Recreational Drug Use Recreational Drug Use: No - Living Situation & Occupation Living situation: Reports: with Family Occupation: Unemployed [facility] - Review of Systems Review Of Systems: See Below Constitutional: Reports: No Symptoms HEENT: Reports: Other (Right side of tongue numb, Right facial numbness). Denies: Hearing Loss, Nosebleed, Throat Swelling, Vertigo, Vision Change Respiratory: Reports: No Symptoms Cardiovascular: Reports: Chest Pain Endocrine: Reports: Fatigue GI/Abdominal: Reports: No Symptoms : Reports: No Symptoms Musculoskeletal: Reports: Neck Pain (chronic), Shoulder Pain (left), Arm Pain (left), Back Pain (chronic), Hand Pain (left), Leg Pain (left), Foot Pain (left). 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 Denies: Headache, Change in Speech Psychiatric: Reports: Anxiety Hematologic/Lymphatic: Reports: No Symptoms Immunologic: Reports: No Symptoms ED EXAM, GENERAL - Physical Exam Exam: See Below Exam Limited By: No Limitations General Appearance: Alert, No Apparent Distress, Anxious Eye Exam: Bilateral Eye: EOMI, Normal Inspection, PERRL Ears: Hearing Grossly Normal Nose: Normal Inspection, Normal Mucosa, No Blood Throat/Mouth: Normal Lips, Normal Voice, No Airway Compromise Head: Atraumatic, Normocephalic Neck: Normal Inspection, Supple, Non-Tender, Full Range of Motion Respiratory/Chest: No Respiratory Distress, Lungs Clear, Normal Breath Sounds, No Accessory Muscle Use, Chest Non-Tender Cardiovascular: Normal Peripheral Pulses, Regular Rate, Rhythm, No Edema GI/Abdominal: Normal Bowel Sounds, Soft, Non-Tender, Other (Benign obese abdomen) (Female) Exam: Deferred Rectal (Female) Exam: Deferred Back Exam: Paraspinal Tenderness (Generalized ). No: Vertebral Tenderness Extremities: No Pedal Edema, Normal Capillary Refill, Other (Generalized hypersensitivity allodynia to all tactile stimuli to the left upper & lower extremities and left torso, no visible signs of injury.). No: Joint Swelling Neurological: Alert, Oriented, CN II-XII Intact, Normal Cognition (Initially pt was uncooperative, angry and easily agitated not wanting to be bothered by questioning and refusing to be touched.), Sensory/Motor Deficit (Will not/cannot move or attempt to move left upper or lower extremities.), Other (NIH Stroke Score: 7 (motor L arm 3, motor L 3 leg, sensory loss L 1)) Psychiatric: Anxious, Flat Affect, Tearful Skin Exam: Warm, Dry, Intact, Normal Color, No Rash EKG INTERPRETATION EKG Date: 04/26/20 Time: 08:11 Rhythm: Other (SR) Rate (Beats/Min): 94 [place]: Normal P-Wave: Present QRS: Normal ST-T: Normal QT: Normal Comparison: No Change EKG Interpretation Comments: No acute ischemic changes. Course - Vital Signs Last Recorded V/S: Last Vital Signs Temp 98.0 F 04/26/20 07:35 Pulse 88 04/26/20 07:35 Resp 18 04/26/20 07:35 BP 123/62 04/26/20 07:35 Pulse Ox 100 04/26/20 07:35 - Orders/Labs/Meds Orders: Active Orders 24 hr Category Date Time Status Blood Glucose Check, Bedside [RC] ONETIME Care 04/26/20 08:37 Active NIH Stroke Scale [RC] ASDIRECTED Care 04/26/20 08:50 Active Cervical Spine wo Cont [CT] Urgent Exams 04/26/20 08:37 Ordered Head wo Cont [CT] Urgent Exams 04/26/20 08:37 Ordered Shoulder Comp Lt [CR] Urgent Exams 04/26/20 08:37 Taken Labs: Laboratory Tests 04/26/20 04/26/20 04/26/20 Range/Units 08:04 08:05 08:05 WBC 7.1 (5.0-10.0) 10^3/uL RBC 3.60 L (4.2-5.4) 10^6/uL Hgb 10.7 L (12.0-16.0) g/dL Hct 33.1 L (37.0-47.0) % MCV 91.9 D (80-100) fL MCH 29.7 (27.0-34.0) pg MCHC 32.3 L (33.0-35.0) g/dL Plt Count 292 (150-450) 10^3/uL Neut % (Auto) 59.9 (42.2-75.2) % Lymph % (Auto) 30.6 (20.5-50.1) % Gaines % (Auto) 7.8 (2-8) % Eos % (Auto) 1.4 (1.0-3.0) % Baso % (Auto) 0.3 (0.0-1.0) % Sodium 142 (136-145) mmol/L Potassium 4.2 (3.5-5.1) mmol/L Chloride 105 (98-107) mmol/L Carbon Dioxide 26 (21-32) mmol/L Anion Gap 15.2 H (7-13) mEq/L BUN 20 H (7-18) mg/dL Creatinine 1.24 H (0.55-1.02) mg/dL Est Cr Clr Drug Dosing TNP Estimated GFR (MDRD) 46 BUN/Creatinine Ratio 16.1 (No establ ref range) Glucose 118 H (74-99) mg/dL POC Glucose 103 (70-105) mg/dl Calcium 9.1 (8.5-10.1) mg/dL Total Bilirubin 0.3 (0.2-1.0) mg/dL AST 16 (15-37) U/L ALT 19 (14-59) U/L Alkaline Phosphatase 93 (46-116) U/L Troponin I < 0.017 (0.000-0.056) ng/mL Total Protein 7.7 (6.4-8.2) g/dL Albumin 3.3 L (3.4-5.0) g/dL Globulin 4.4 Albumin/Globulin Ratio 0.75 Urine Color (YELLOW) Urine Appearance (CLEAR) Urine pH (5.0-9.0) Ur Specific [place] (1.005-1.030) Urine Protein (NEGATIVE) Urine Glucose (UA) (NEGATIVE) Urine Ketones (NEGATIVE) Urine Occult Blood (NEGATIVE) Urine Nitrite (NEGATIVE) Urine Bilirubin (NEGATIVE) Urine Urobilinogen (0.2-1.0) mg/dL Ur Leukocyte Esterase (NEGATIVE) Urine Opiates Screen (NEGATIVE) Ur Oxycodone Screen (NEGATIVE) Urine Methadone Screen (NEGATIVE) Ur Barbiturates Screen (NEGATIVE) U Tricyclic Antidepress (NEGATIVE) Ur Phencyclidine Scrn (NEGATIVE) Ur Amphetamine Screen (NEGATIVE) U Methamphetamines Scrn (NEGATIVE) Urine MDMA Screen (NEGATIVE) U Benzodiazepines Scrn (NEGATIVE) Urine Cocaine Screen (NEGATIVE) U Marijuana (THC) Screen (NEGATIVE) Ethyl Alcohol < 3 (0) mg/dL 04/26/20 04/26/20 Range/Units 08:35 08:35 WBC (5.0-10.0) 10^3/uL RBC (4.2-5.4) 10^6/uL Hgb (12.0-16.0) g/dL Hct (37.0-47.0) % MCV (80-100) fL MCH (27.0-34.0) pg MCHC (33.0-35.0) g/dL Plt Count (150-450) 10^3/uL Neut % (Auto) (42.2-75.2) % Lymph % (Auto) (20.5-50.1) % Gaines % (Auto) (2-8) % Eos % (Auto) (1.0-3.0) % Baso % (Auto) (0.0-1.0) % Sodium (136-145) mmol/L Potassium (3.5-5.1) mmol/L Chloride (98-107) mmol/L Carbon Dioxide (21-32) mmol/L Anion Gap (7-13) mEq/L BUN (7-18) mg/dL Creatinine (0.55-1.02) mg/dL Est Cr Clr Drug Dosing Estimated GFR (MDRD) BUN/Creatinine Ratio (No establ ref range) Glucose (74-99) mg/dL POC Glucose (70-105) mg/dl Calcium (8.5-10.1) mg/dL Total Bilirubin (0.2-1.0) mg/dL AST (15-37) U/L ALT (14-59) U/L Alkaline Phosphatase (46-116) U/L Troponin I (0.000-0.056) ng/mL Total Protein (6.4-8.2) g/dL Albumin (3.4-5.0) g/dL Globulin Albumin/Globulin Ratio Urine Color Yellow (YELLOW) Urine Appearance Clear (CLEAR) Urine pH 6.0 (5.0-9.0) Ur Specific [place] 1.010 (1.005-1.030) Urine Protein Negative (NEGATIVE) Urine Glucose (UA) Negative (NEGATIVE) Urine Ketones Negative (NEGATIVE) Urine Occult Blood Negative (NEGATIVE) Urine Nitrite Negative (NEGATIVE) Urine Bilirubin Negative (NEGATIVE) Urine Urobilinogen 0.2 (0.2-1.0) mg/dL Ur Leukocyte Esterase Negative (NEGATIVE) Urine Opiates Screen Negative (NEGATIVE) Ur Oxycodone Screen Negative (NEGATIVE) Urine Methadone Screen Negative (NEGATIVE) Ur Barbiturates Screen Negative (NEGATIVE) U Tricyclic Antidepress Negative (NEGATIVE) Ur Phencyclidine Scrn Negative (NEGATIVE) Ur Amphetamine Screen Negative (NEGATIVE) U Methamphetamines Scrn Negative (NEGATIVE) Urine MDMA Screen Negative (NEGATIVE) U Benzodiazepines Scrn Negative (NEGATIVE) Urine Cocaine Screen Negative (NEGATIVE) U Marijuana (THC) Screen Negative (NEGATIVE) Ethyl Alcohol (0) mg/dL Meds: Medications Discontinued Medications Generic Name Dose Route Start Last Admin Trade Name Jessy PRN Reason Stop Dose Admin Aspirin 324 mg 04/26/20 08:47 04/26/20 09:37 Aspirin PO 04/26/20 08:48 324 mg ONETIME ONE Administration - Radiology Interpretation Free Text/Narrative:: [facility] Final Radiology Report Call: [phone] assistance Online chat: [email or web address] Name: DORY ACE RENAE Age: 49Years F Date: 04/26/2020 SSN: -- : 1970 Study: CR SHOULDER COMP LT Requesting Physician: RAMIRO ANDREW Images: 2 Addl Studies: Provided Clinical History: FALL LAST NIGHT, LEFT SHOULDER PAIN Contrast: Contrast Medium: Contrast Amount: Contrast Method: CONFIDENTIALITY STATEMENT This report is intended only for use by the referring physician, and only in accordance with law. If you received this in error, call [phone]. Page 1 of 1 PROCEDURE INFORMATION: Exam: XR Left Shoulder Exam date and time: 04/26/2020 7:55 AM Age: 49 years old Clinical indication: Injury or trauma; Fall; Initial encounter; Blunt trauma (contusions or hematomas; Shoulder; Left; Additional info: Fall last night, left shoulder pain TECHNIQUE: Imaging protocol: XR Left shoulder. Views: 2 or more views. COMPARISON: No relevant prior studies available. FINDINGS: Limitations: Body habitus degrades image quality and signal to noise ratio compromising the study. Bones/joints: Mild degenerative changes at the acromioclavicular joint space. No displaced fracture identified. No dislocation of the Soft tissues: Normal. IMPRESSION: No displaced fracture identified. Thank you for allowing us to participate in the care of your patient. Dictated and Authenticated by: Al Doherty MD 04/26/2020 8:30 AM Central Time ([place] & [place]) [facility] Final Radiology Report Call: [phone] assistance Online chat: [email or web address] Name: KARI RIBEIRO Age: 49Years F Date: 04/26/2020 SSN: -- : 1970 Study: CT HEAD WO CONT Requesting Physician: RAMIRO ANDREW Images: 481 Addl Studies: 0002 - CT SPINE CERVICAL WO (1) Provided Clinical History: FALL LAST NIGHT, HEAD INJURY WITH LOC LAST NIGHT Contrast: Without Contrast Medium: Contrast Amount: Contrast Method: Page 1 of 3 PROCEDURE INFORMATION: Exam: CT Head Without Contrast Exam date and time: 04/26/2020 7:45 AM Age: 49 years old Clinical indication: Injury or trauma; Fall; Initial encounter; Blunt trauma (contusions or hematomas); With loss of consciousness; Not specified; Additional info: Fall last night, head injury with loc last night TECHNIQUE: Imaging protocol: Computed tomography of the head without contrast. Radiation optimization: All CT scans at this facility use at least one of these dose optimization techniques: automated exposure control; mA and/or kV adjustment per patient size (includes targeted exams where dose is matched to clinical indication); or iterative reconstruction. Other technique: STROKE PROTOCOL was implemented. COMPARISON: No relevant prior studies available. FINDINGS: Brain: Normal. No hemorrhage. Unremarkable white matter. No mass effect. Ventricles: Normal. No ventriculomegaly. Bones/joints: Unremarkable. No acute fracture. Sinuses: Visualized sinuses are unremarkable. No fluid levels. Mastoid air cells: Visualized mastoid air cells are well aerated. Soft tissues: Unremarkable. IMPRESSION: No acute intracranial abnormality or injury. Normal brain. ASSESSMENT: ASPECTS ([place] Stroke Program Early CT Score) is 10. KARI RIBEIRO | Final Radiology Report Page 2 of 3 PROCEDURE INFORMATION: Exam: CT Cervical Spine Without Contrast Exam date and time: 04/26/2020 7:45 AM Age: 49 years old Clinical indication: Injury or trauma; Fall; Initial encounter; Blunt trauma (contusions or hematomas); With loss of consciousness; Not specified; Additional info: Fall last night, head injury with loc last night TECHNIQUE: Imaging protocol: Computed tomography images of the cervical spine without contrast. Radiation optimization: All CT scans at this facility use at least one of these dose optimization techniques: automated exposure control; mA and/or kV adjustment per patient size (includes targeted exams where dose is matched to clinical indication); or iterative reconstruction. COMPARISON: No relevant prior studies available. FINDINGS: Vertebrae: No acute fracture. Normal alignment, except for mild straightening of the cervical spine. Chronic degenerative vertebral body endplate osteophytosis with diminished disc height is seen at levels C4-T1. Discs/Spinal canal/Neural foramina: No significant disc protrusion. No severe spinal canal stenosis. No significant neural foraminal narrowing. Soft tissues: Unremarkable prevertebral and posterior paraspinal soft tissues. Lungs: Lung apices are normal. IMPRESSION: 1. No acute findings, except for mild straightening of the cervical spine. This could simply be a technical artifact due to flexed-neck positioning of the patient in the CT scanner or the presence of a cervical collar but more likely reflects chronic pain and/or muscle spasm related to chronic degenerative change or remote whiplash injury and/or ligamentous laxity. 2. Chronic degenerative discovertebral disease at levels C4-T1. 3. No significant spinal canal or neuroforaminal stenosis. KARI RIBEIRO | Final Radiology Report CONFIDENTIALITY STATEMENT This report is intended only for use by the referring physician, and only in accordance with law. If you received this in error, call [phone]. Page 3 of 3 Thank you for allowing us to participate in the care of your patient. Dictated and Authenticated by: Taras Garcia MD 04/26/2020 8:35 AM Central Time ([place] & [place]) [facility] Final Radiology Report Call: [phone] assistance Online chat: [email or web address] Name: KARI RIBEIRO Age: 49Years F Date: 04/26/2020 SSN: -- : 1970 Study: CR CHEST 1V FRONTAL Requesting Physician: RAMIRO ANDREW Images: 1 Addl Studies: Provided Clinical History: fall Contrast: Contrast Medium: Contrast Amount: Contrast Method: Page 1 of 2 PROCEDURE INFORMATION: Exam: XR Chest, 1 View Exam date and time: 04/26/2020 9:01 AM Age: 49 years old Clinical indication: Chest pain; Type not specified; Additional info: Fall TECHNIQUE: Imaging protocol: XR of the chest Views: 1 view. COMPARISON: CR Chest 1V Frontal 10/18/2019 3:36 PM FINDINGS: Lungs: Low lung volumes bilaterally. No evidence of pneumothorax or pleural effusion. Heart/Mediastinum: The heart size is within normal limits. The ascending aortic segment is slightly prominent, only, but this could be an artifact from the patient's rotation. Bones/joints: Unremarkable. Other findings: Mild rotation of the patient left anterior oblique. IMPRESSION: 1. Low lung volumes bilaterally. No evidence of pneumothorax or pleural effusion. 2. Mild rotation of the patient left anterior oblique. 3. The heart size is within normal limits. The ascending aortic segment is slightly prominent, only, but this could be an artifact from the patient's rotation. Thank you for allowing us to participate in the care of your patient. Dictated and Authenticated by: Taras Garcia MD [facility] | Final Radiology Report CONFIDENTIALITY STATEMENT This report is intended only for use by the referring physician, and only in accordance with law. If you received this in error, call [phone]. Page 2 of 2 04/26/2020 9:20 AM Central Time ([place] & [place]) - Re-Assessments/Exams Free Text/Narrative Re-Assessment/Exam: 04/26/20 09:39 No bed available at [facility], but anticipate bed opening with morning discharges. Pt well outside of therapeutic window for thrombolytic or interventional tx, therefore plan to admit here to Dr. Soria for observation and consider transfer if needed later today. Departure - Departure Time of Disposition: 09:38 (admit to Dr. Soria) Disposition: Refer to Observation Condition: Undetermined Clinical Impression: CVA, Cerebrovascular accident - Discharge Information *PRESCRIPTION DRUG MONITORING PROGRAM REVIEWED*: No *COPY OF PRESCRIPTION DRUG MONITORING REPORT IN PATIENT VIKKI: No Referrals: PCP,Unobtain [Primary Care Provider] - Forms: ED Department Discharge Sepsis Event Note (ED) - Focused Exam Vital Signs: Vital Signs Temp Pulse Resp BP Pulse Ox 04/26/20 07:35 98.0 F 88 18 123/62 100 - My Orders Last 24 Hours: My Active Orders 04/26/20 08:37 Blood Glucose Check, Bedside [RC] ONETIME Cervical Spine wo Cont [CT] Urgent Head wo Cont [CT] Urgent Shoulder Comp Lt [CR] Urgent 04/26/20 08:50 NIH Stroke Scale [RC] ASDIRECTED - Assessment/Plan Last 24 Hours: My Active Orders 04/26/20 08:37 Blood Glucose Check, Bedside [RC] ONETIME Cervical Spine wo Cont [CT] Urgent Head wo Cont [CT] Urgent Shoulder Comp Lt [CR] Urgent 04/26/20 08:50 NIH Stroke Scale [RC] ASDIRECTED
[2020-04-26] MEDS ORDERED: Aspirin 81 MG Tab.Chew PO ONE (08:47)
[2020-04-26 08:49] LABS: ANION GAP 15.2 mEq/L (7-13); CHLORIDE,CL 105 mmol/L (98-107); SODIUM,NA 142 mmol/L (136-145)
--- NOTE | 2020-04-26 09:20 | CR ---
PROCEDURE INFORMATION: Exam: XR Chest, 1 View Exam date and time: 04/26/2020 9:01 AM Age: 49 years old Clinical indication: Chest pain; Type not specified; Additional info: Fall TECHNIQUE: Imaging protocol: XR of the chest Views: 1 view. COMPARISON: CR Chest 1V Frontal 10/18/2019 3:36 PM FINDINGS: Lungs: Low lung volumes bilaterally. No evidence of pneumothorax or pleural effusion. Heart/Mediastinum: The heart size is within normal limits. The ascending aortic segment is slightly prominent, only, but this could be an artifact from the patient's rotation. Bones/joints: Unremarkable. Other findings: Mild rotation of the patient left anterior oblique. IMPRESSION: 1. Low lung volumes bilaterally. No evidence of pneumothorax or pleural effusion. 2. Mild rotation of the patient left anterior oblique. 3. The heart size is within normal limits. The ascending aortic segment is slightly prominent, only, but this could be an artifact from the patient's rotation.
[2020-04-26 10:37] VITALS: PULSE 94
[2020-04-26] MEDS ORDERED: Albuterol/Ipratropium 3.0-0.5 MG/3 ML Neb Soln NEB PRN (11:19)
--- NOTE | 2020-04-26 11:28 | PCM.HP ---
H&P History of Present Illness - General Date of Service: 04/26/20 Admit Problem/Dx: Admission Diagnosis/Problem Admission Diagnosis/Problem CVA, Cerebrovascular accident Source of Information: Patient - History of Present Illness Initial Comments - Free Text/Narative: 49-year-old with a history of diabetes, prior stroke with minimal left-sided residual weakness. Prior stroke was about 10-15 years ago. She has been on aspirin. In the evening of 25 April the patient developed sudden onset of right facial tingling numbness in the tongue. Later she had left sided weakness associated with pain in the upper and lower extremities. Weakness was severe enough that she fell. She slept through the night but the weakness this morning was still present. She was unable to walk. Associated headache. No nausea or vomiting. No apparent seizure. Symptoms seem similar to right or stroke symptoms 10- 15 years ago. - Related Data Allergies/Adverse Reactions: Allergies Allergy/AdvReac Type Severity Reaction Status Date / Time levonorgestrel Allergy Cannot Verified 01/01/20 13:51 Remember trazodone Allergy Swelling Verified 01/01/20 13:51 mint chocolate chip flavor Allergy Swelling Uncoded 01/01/20 13:51 seasonal Allergy Cannot Uncoded 01/01/20 13:51 Remember Home Medications: Home Meds Acetaminophen [Tylenol Extra Strength] 1,000 mg PO Q6H PRN 11/17/14 [History] Albuterol [Proventil] 3 ml INH QID PRN 11/17/14 [History] Albuterol/Ipratropium [Combivent] 1 puff INH Q4H PRN 11/17/14 [History] Aspirin 325 mg PO DAILY 11/17/14 [History] Budesonide/Formoterol [Symbicort 80-4.5 MCG] 2 puff INH BID 11/17/14 [History] EPINEPHrine [Epipen] 0.3 ml SUBCUT ASDIRECTED PRN 11/17/14 [History] Fluticasone Propionate [Flonase] 2 sprays NASBOTH DAILY 11/17/14 [History] Lactobacillus Acidophilus [Probiotic] 1 tab PO DAILY 11/17/14 [History] Pantoprazole [Protonix] 40 mg PO DAILY 11/17/14 [History] tiZANidine [Zanaflex] 4 mg PO Q8HR PRN 02/20/15 [History] DULoxetine [Cymbalta] 120 mg PO DAILY 08/01/15 [History] Pravastatin [Pravachol] 20 mg PO BEDTIME 08/01/15 [History] buPROPion [Wellbutrin] 150 mg PO DAILY 08/01/15 [History] metFORMIN [Glucophage XR] 1,000 mg PO ASDIRECTED 12/15/15 [History] Liraglutide [Victoza] 1.2 mg SUBCUT DAILY 03/16/16 [History] Ascorbic Acid [Vitamin C] 250 mg PO BID 08/31/18 [History] Biotin 300 mcg PO DAILY 08/31/18 [History] Ferrous Sulfate 325 mg PO BID 08/31/18 [History] Lisinopril 30 mg PO DAILY 08/31/18 [History] atenoloL [Atenolol] 25 mg PO DAILY 08/31/18 [History] hydrOXYzine HCL [hydrOXYzine] 25 mg PO TID PRN 08/31/18 [History] ondansetron HCL [Zofran] 4 mg PO DAILY 08/31/18 [History] Nitroglycerin 0.4 mg SL ASDIRECTED PRN 10/18/19 [History] Gabapentin [Neurontin] 600 mg PO TID 01/01/20 [History] Insulin Detemir [Levemir] 40 - 43 units INJECT ASDIRECTED 01/01/20 [History] Multivitamin with Minerals [Multiple Vitamin] 1 tab PO DAILY 01/01/20 [History] Past Medical History HEENT History: Reports: Impaired Vision Cardiovascular History: Reports: CAD, High Cholesterol, Hypertension, OR Respiratory History: Reports: Asthma, COPD, Sleep Apnea Other Respiratory History: uses c-pap at home. 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 Musculoskeletal History: Reports: Arthritis, Back Pain, Chronic, Neck Pain, Chronic, Other (See Below) Other Musculoskeletal History: Neck and back Neurological History: Reports: CVA, Migraines, Neuropathy, Diabetic Psychiatric History: Reports: Anxiety, Depression, Panic Attack, Suicide Attempt Endocrine/Metabolic History: Reports: Diabetes, Type II, Obesity/BMI 30+ Hematologic History: Reports: Anemia Immunologic History: Reports: None Oncologic (Cancer) History: Reports: None Dermatologic History: Reports: None - Infectious Disease History Infectious Disease History: Reports: Chicken Pox, Measles, MRSA, Mumps - Past Surgical History Head Surgeries/Procedures: Reports: None HEENT Surgical History: Reports: None Cardiovascular Surgical History: Reports: None Respiratory Surgical History: Reports: None GI Surgical History: Reports: Appendectomy Female Surgical History: Reports: D&C, Other (See Below) Other Female Surgeries/Procedures: 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 Neurological Surgical History: Reports: None Musculoskeletal Surgical History: Reports: None Social & Family History - Family History Family Medical History: Noncontributory - Tobacco Use Smoking Status *Q: Former Smoker - Caffeine Use Caffeine Use: Reports: Coffee Caffeine Use Comment: 2 cups coffee daily - Recreational Drug Use Recreational Drug Use: No - Living Situation & Occupation Living situation: Reports: with Family Occupation: Unemployed H&P Review of Systems - Review of Systems: Review Of Systems: See Below General: Denies: Fever Pulmonary: Denies: Shortness of Breath Cardiovascular: Denies: Chest Pain Gastrointestinal: Denies: Abdominal Pain, Nausea Psychiatric: Denies: Confusion Neurological: Reports: Headache, Difficulty Walking, Weakness (Left upper and lower extremity associated with significant pain). Denies: Seizure, Trouble Speaking Exam - Exam Exam: See Below - Vital Signs Vital Signs: Last Vital Signs Temp 97.4 F 04/26/20 10:21 Pulse 94 04/26/20 10:21 Resp 18 04/26/20 10:21 BP 122/71 04/26/20 10:21 Pulse Ox 97 04/26/20 10:21 Weight: 216 lb 6.4 oz - Exam General: Alert, Oriented Neck: Supple Lungs: Clear to Auscultation, Normal Respiratory Effort Cardiovascular: Regular Rate, Regular Rhythm GI/Abdominal Exam: Normal Bowel Sounds, Soft, Non-Tender Extremities: No Pedal Edema Skin: Warm, Dry Neurological: Cranial Nerves Intact, Other (Cannot lift left lower extremity against gravity on my examination but later on was able to walk with help to the bathroom. Left upper extremity weakness but can move fingers. Complaining of significant pain in both upper and lower extremities) Neuro Extensive - Mental Status: Alert, Oriented x3 - Patient Data Lab Results Last 24 hrs: Laboratory Results - last 24 hr 09/12/1004/26/20 04/26/20 Range/Units 08:04 08:05 08:05 WBC 7.1 (5.0-10.0) 10^3/uL RBC 3.60 L (4.2-5.4) 10^6/uL Hgb 10.7 L (12.0-16.0) g/dL Hct 33.1 L (37.0-47.0) % MCV 91.9 D (80-100) fL MCH 29.7 (27.0-34.0) pg MCHC 32.3 L (33.0-35.0) g/dL Plt Count 292 (150-450) 10^3/uL Neut % (Auto) 59.9 (42.2-75.2) % Lymph % (Auto) 30.6 (20.5-50.1) % [place] % (Auto) 7.8 (2-8) % Eos % (Auto) 1.4 (1.0-3.0) % Baso % (Auto) 0.3 (0.0-1.0) % Sodium 142 (136-145) mmol/L Potassium 4.2 (3.5-5.1) mmol/L Chloride 105 (98-107) mmol/L Carbon Dioxide 26 (21-32) mmol/L Anion Gap 15.2 H (7-13) mEq/L BUN 20 H (7-18) mg/dL Creatinine 1.24 H (0.55-1.02) mg/dL Est Cr Clr Drug Dosing TNP Estimated GFR (MDRD) 46 BUN/Creatinine Ratio 16.1 (No establ ref range) Glucose 118 H (74-99) mg/dL POC Glucose 103 (70-105) mg/dl Calcium 9.1 (8.5-10.1) mg/dL Total Bilirubin 0.3 (0.2-1.0) mg/dL AST 16 (15-37) U/L ALT 19 (14-59) U/L Alkaline Phosphatase 93 (46-116) U/L Troponin I < 0.017 (0.000-0.056) ng/mL Total Protein 7.7 (6.4-8.2) g/dL Albumin 3.3 L (3.4-5.0) g/dL Globulin 4.4 Albumin/Globulin Ratio 0.75 Urine Color (YELLOW) Urine Appearance (CLEAR) Urine pH (5.0-9.0) Ur Specific [place] (1.005-1.030) Urine Protein (NEGATIVE) Urine Glucose (UA) (NEGATIVE) Urine Ketones (NEGATIVE) Urine Occult Blood (NEGATIVE) Urine Nitrite (NEGATIVE) Urine Bilirubin (NEGATIVE) Urine Urobilinogen (0.2-1.0) mg/dL Ur Leukocyte Esterase (NEGATIVE) Urine Opiates Screen (NEGATIVE) Ur Oxycodone Screen (NEGATIVE) Urine Methadone Screen (NEGATIVE) Ur Barbiturates Screen (NEGATIVE) U Tricyclic Antidepress (NEGATIVE) Ur Phencyclidine Scrn (NEGATIVE) Ur Amphetamine Screen (NEGATIVE) U Methamphetamines Scrn (NEGATIVE) Urine MDMA Screen (NEGATIVE) U Benzodiazepines Scrn (NEGATIVE) Urine Cocaine Screen (NEGATIVE) U Marijuana (THC) Screen (NEGATIVE) Ethyl Alcohol < 3 (0) mg/dL 04/26/20 04/26/20 Range/Units 08:35 08:35 WBC (5.0-10.0) 10^3/uL RBC (4.2-5.4) 10^6/uL Hgb (12.0-16.0) g/dL Hct (37.0-47.0) % MCV (80-100) fL MCH (27.0-34.0) pg MCHC (33.0-35.0) g/dL Plt Count (150-450) 10^3/uL Neut % (Auto) (42.2-75.2) % Lymph % (Auto) (20.5-50.1) % [place] % (Auto) (2-8) % Eos % (Auto) (1.0-3.0) % Baso % (Auto) (0.0-1.0) % Sodium (136-145) mmol/L Potassium (3.5-5.1) mmol/L Chloride (98-107) mmol/L Carbon Dioxide (21-32) mmol/L Anion Gap (7-13) mEq/L BUN (7-18) mg/dL Creatinine (0.55-1.02) mg/dL Est Cr Clr Drug Dosing Estimated GFR (MDRD) BUN/Creatinine Ratio (No establ ref range) Glucose (74-99) mg/dL POC Glucose (70-105) mg/dl Calcium (8.5-10.1) mg/dL Total Bilirubin (0.2-1.0) mg/dL AST (15-37) U/L ALT (14-59) U/L Alkaline Phosphatase (46-116) U/L Troponin I (0.000-0.056) ng/mL Total Protein (6.4-8.2) g/dL Albumin (3.4-5.0) g/dL Globulin Albumin/Globulin Ratio Urine Color Yellow (YELLOW) Urine Appearance Clear (CLEAR) Urine pH 6.0 (5.0-9.0) Ur Specific [place] 1.010 (1.005-1.030) Urine Protein Negative (NEGATIVE) Urine Glucose (UA) Negative (NEGATIVE) Urine Ketones Negative (NEGATIVE) Urine Occult Blood Negative (NEGATIVE) Urine Nitrite Negative (NEGATIVE) Urine Bilirubin Negative (NEGATIVE) Urine Urobilinogen 0.2 (0.2-1.0) mg/dL Ur Leukocyte Esterase Negative (NEGATIVE) Urine Opiates Screen Negative (NEGATIVE) Ur Oxycodone Screen Negative (NEGATIVE) Urine Methadone Screen Negative (NEGATIVE) Ur Barbiturates Screen Negative (NEGATIVE) U Tricyclic Antidepress Negative (NEGATIVE) Ur Phencyclidine Scrn Negative (NEGATIVE) Ur Amphetamine Screen Negative (NEGATIVE) U Methamphetamines Scrn Negative (NEGATIVE) Urine MDMA Screen Negative (NEGATIVE) U Benzodiazepines Scrn Negative (NEGATIVE) Urine Cocaine Screen Negative (NEGATIVE) U Marijuana (THC) Screen Negative (NEGATIVE) Ethyl Alcohol (0) mg/dL Result Diagrams: 04/26/20 08:05 04/26/20 08:05 - Problem List (1) CVA, Cerebrovascular accident SNOMED Code(s): 321170628 ICD Code: I63.9 - CEREBRAL INFARCTION, UNSPECIFIED Status: Acute Current Visit: Yes (2) Diabetes SNOMED Code(s): 58084406 ICD Code: E11.9 - TYPE 2 DIABETES MELLITUS WITHOUT COMPLICATIONS Status: Acute Current Visit: No Qualifiers: Diabetes mellitus type: type 2 Diabetes mellitus [facility] insulin use: unspecified [facility] insulin use status Diabetes mellitus complication status: with neurologic complications Diabetes mellitus complication detail: with unspecified neuropathy Qualified Code(s): E11.40 - Type 2 diabetes mellitus with diabetic neuropathy, unspecified (3) Headache SNOMED Code(s): 63660487 ICD Code: R51 - HEADACHE Status: Acute Current Visit: No Qualifiers: Headache type: unspecified Headache chronicity pattern: acute headache Intractability: not intractable Qualified Code(s): R51 - Headache (4) Hemiplegia affecting left nondominant side SNOMED Code(s): 059127792746950 ICD Code: G81.94 - HEMIPLEGIA, UNSPECIFIED AFFECTING LEFT NONDOMINANT SIDE Status: Acute Current Visit: No Qualifiers: Hemiplegia type: flaccid Hemiplegia etiology: unspecified etiology Qualified Code(s): G81.04 - Flaccid hemiplegia affecting left nondominant side Problem List Initiated/Reviewed/Updated: Yes Orders Last 24hrs: Active Orders 24 hr Category Date Time Status Admission Diagnosis [ADT] Stat ADT 04/26/20 10:54 Ordered Admission Status [Patient Status] [ADT] Routine ADT 04/26/20 10:54 Active Patient Status [ADT] Routine ADT 04/26/20 11:18 Ordered Oxygen Therapy [RC] PRN Care 04/26/20 11:18 Ordered RT Aerosol Therapy [RC] ASDIRECTED Care 04/26/20 11:20 Ordered Up With Assistance [RC] ASDIRECTED Care 04/26/20 11:18 Ordered VTE/DVT Education [RC] PER UNIT ROUTINE Care 04/26/20 11:18 Ordered Vital Signs [RC] Q4H Care 04/26/20 11:18 Ordered Nothing per Oral Now Diet [DIET] Diet 04/26/20 Lunch Ordered Cervical Spine wo Cont [CT] Urgent Exams 04/26/20 08:37 Taken Head wo Cont [CT] Urgent Exams 04/26/20 08:37 Taken Shoulder Comp Lt [CR] Urgent Exams 04/26/20 08:37 Taken Albuterol/Ipratropium [DuoNeb 3.0-0.5 MG/3 ML] Med 04/26/20 11:19 Ordered 3 ml NEB Q2H PRN Albuterol/Ipratropium [DuoNeb 3.0-0.5 MG/3 ML] Med 04/26/20 13:00 Ordered 3 ml NEB Q6HRRT Aspirin Med 04/27/20 09:00 Ordered 325 mg PO DAILY Budesonide/Formoterol Med 04/26/20 21:00 Ordered 2 puff INH BID Gabapentin Med 04/26/20 14:00 Ordered 600 mg PO TID Heparin Sodium Med 09/04/20 14:00 Ordered 5,000 units SUBCUT Q8HR Lisinopril [Lisinopril] Med 04/27/20 09:00 Ordered 30 mg PO DAILY Pravastatin [Pravachol] Med 04/26/20 21:00 Ordered 20 mg PO BEDTIME atenoloL [Tenormin] Med 04/27/20 09:00 Ordered 25 mg PO DAILY Resuscitation Status Routine Resus Stat 04/26/20 11:18 Ordered Medication Orders Albuterol/Ipratropium (Duoneb 3.0-0.5 Mg/3 Ml) 3 ml NEB Q6HRRT DARRELL Albuterol/Ipratropium (Duoneb 3.0-0.5 Mg/3 Ml) 3 ml NEB Q2H PRN PRN Reason: sob Aspirin (Aspirin) 325 mg PO DAILY DARRELL Atenolol (Tenormin) 25 mg PO DAILY DARRELL Heparin Sodium (Porcine) (Heparin Sodium) 5,000 units SUBCUT Q8HR DARRELL Non-Formulary Medication (Budesonide/Formoterol) 2 puff INH BID DARRELL Non-Formulary Medication (Gabapentin) 600 mg PO TID DARRELL Non-Formulary Medication (Lisinopril [Lisinopril]) 30 mg PO DAILY DARRELL Pravastatin Sodium (Pravachol) 20 mg PO BEDTIME DARRELL Assessment/Plan Comment:: Sudden onset of right facial numbness, left upper and lower extremity tingling developing into a weakness Not TPA candidate due to time contraindications, last known well evening of [address] head without contrast negative Will continue aspirin, statin Will have swallow evaluation, physical and occupational therapy evaluation Called [facility] and plan for transfer for neurological consultation Hypertension Continue lisinopril, atenolol Diabetes Hold metformin Hold long-acting insulin until patient is able to eat well Use supplemental insulin and hypoglycemia treatment as needed Chronic pain Pain is also limiting neurological functions Hold Neurontin until swallow studies DVT prophylaxis with subcutaneous heparin discussed with [facility] call
[2020-04-26] MEDS ORDERED: Albuterol/Ipratropium 3.0-0.5 MG/3 ML Neb Soln NEB SCH (13:00)
[2020-04-26 13:46] VITALS: BP 120/76
[2020-04-26] MEDS ORDERED: Heparin Sodium 5,000 Units/ML Vial SUBCUT SCH (14:00)
--- NOTE | 2020-04-26 14:34 | PCM.DCSUM1 ---
Discharge Summary - Hospital Course Free Text/Narrative:: Sudden onset of right facial numbness, left upper and lower extremity tingling developing into a weakness Not TPA candidate due to time contraindications, last known well evening of [address] head without contrast negative Continued aspirin, statin Called [facility] and plan for transfer for neurological consultation Hypertension Continue lisinopril, atenolol Diabetes Hold metformin Hold long-acting insulin until patient is able to eat well Use supplemental insulin and hypoglycemia treatment as needed Chronic pain Pain is also limiting neurological functions Hold Neurontin until swallow studies Diagnosis: Stroke: Yes Modified Olivia Scale: Mod.Sev.Disability ;Unable to Walk/Attend Bodily Needs W/O Assistance Modified Olivia Scale Score: 4 - Discharge Data Discharge Date: 04/26/20 Discharge Disposition: DC/Tfer to Acute Hospital 02 Condition: Good - Referral to Home Health Primary Care Physician: PCP Unobtainable - Discharge Diagnosis/Problem(s) (1) CVA, Cerebrovascular accident SNOMED Code(s): 246198551 ICD Code: I63.9 - CEREBRAL INFARCTION, UNSPECIFIED Status: Acute Current Visit: Yes (2) Diabetes SNOMED Code(s): 32452548 ICD Code: E11.9 - TYPE 2 DIABETES MELLITUS WITHOUT COMPLICATIONS Status: Acute Current Visit: No Qualifiers: Diabetes mellitus type: type 2 Diabetes mellitus halfway insulin use: unspecified intermediate teacher insulin use status Diabetes mellitus complication status: with neurologic complications Diabetes mellitus complication detail: with unspecified neuropathy Qualified Code(s): E11.40 - Type 2 diabetes mellitus with diabetic neuropathy, unspecified (3) Headache SNOMED Code(s): 63004915 ICD Code: R51 - HEADACHE Status: Acute Current Visit: No Qualifiers: Headache type: unspecified Headache chronicity pattern: acute headache Intractability: not intractable Qualified Code(s): R51 - Headache (4) Hemiplegia affecting left nondominant side SNOMED Code(s): 664336470078905 ICD Code: G81.94 - HEMIPLEGIA, UNSPECIFIED AFFECTING LEFT NONDOMINANT SIDE Status: Acute Current Visit: No Qualifiers: Hemiplegia type: flaccid Hemiplegia etiology: unspecified etiology Qualified Code(s): G81.04 - Flaccid hemiplegia affecting left nondominant side - Patient Instructions Diet: NPO Activity: As Tolerated - Discharge Plan *PRESCRIPTION DRUG MONITORING PROGRAM REVIEWED*: No *COPY OF PRESCRIPTION DRUG MONITORING REPORT IN PATIENT VIKKI: No Home Medications: Home Meds Acetaminophen [Tylenol Extra Strength] 1,000 mg PO Q6H PRN 11/17/14 [History] Albuterol [Proventil] 3 ml INH QID PRN 11/17/14 [History] EPINEPHrine [Epipen] 0.3 ml SUBCUT ASDIRECTED PRN 11/17/14 [History] Fluticasone Propionate [Flonase] 2 sprays NASBOTH DAILY 11/17/14 [History] Lactobacillus Acidophilus [Probiotic] 1 tab PO DAILY 11/17/14 [History] tiZANidine [Zanaflex] 4 mg PO Q8HR PRN 02/20/15 [History] DULoxetine [Cymbalta] 120 mg PO DAILY 08/01/15 [History] metFORMIN [Glucophage XR] 1,000 mg PO ASDIRECTED 12/15/15 [History] Liraglutide [Victoza] 1.8 mg SUBCUT DAILY 03/16/16 [History] Ascorbic Acid [Vitamin C] 250 mg PO BID 08/31/18 [History] Ferrous Sulfate 325 mg PO TIDMEALS 08/31/18 [History] Lisinopril 30 mg PO DAILY 08/31/18 [History] atenoloL [Atenolol] 25 mg PO DAILY 08/31/18 [History] Nitroglycerin 0.4 mg SL ASDIRECTED PRN 10/18/19 [History] Gabapentin [Neurontin] 600 mg PO TID 01/01/20 [History] Insulin Detemir [Levemir] 40 units INJECT BID 01/01/20 [History] Multivitamin with Minerals [Multiple Vitamin] 1 tab PO DAILY 01/01/20 [History] Albuterol Sulfate [Albuterol Sulfate Hfa] 2 puff INH Q4H PRN 04/26/20 [History] Aspirin [Aspirin EC] 325 mg PO DAILY 04/26/20 [History] Fluticasone/Salmeterol [Advair 500-50] 1 puff INH BID 04/26/20 [History] Ibuprofen 600 mg PO Q6H PRN 04/26/20 [History] Omeprazole 20 mg PO DAILY 04/26/20 [History] Pravastatin [Pravachol] 40 mg PO BEDTIME 04/26/20 [History] Tiotropium [Spiriva HandiHaler] 18 mcg INH DAILY 04/26/20 [History] buPROPion HCL [Bupropion Xl] 150 mg PO DAILY 04/26/20 [History] hydrOXYzine HCL [Hydroxyzine HCl] 10 mg PO Q4H PRN 04/26/20 [History] Oxygen Therapy Mode: Room Air - Discharge Summary/Plan Comment DC Time >30 min.: No - General Info Date of Service: 04/26/20 Admission Dx/Problem (Free Text: Admission Diagnosis/Problem Admission Diagnosis/Problem CVA, Cerebrovascular accident left sided weakness Functional Status: Reports: Pain Controlled - Review of Systems Pulmonary: Denies: Shortness of Breath Cardiovascular: Denies: Chest Pain Neurological: Reports: Weakness (left side) - Patient Data Vitals - Most Recent: Last Vital Signs Temp 98.8 F 04/26/20 13:30 Pulse 94 04/26/20 13:30 Resp 18 04/26/20 13:30 BP 120/76 04/26/20 13:30 Pulse Ox 95 04/26/20 13:30 Weight - Most Recent: 216 lb 6.4 oz Lab Results - Last 24 hrs: Laboratory Results - last 24 hr 04/26/20 04/26/20 04/26/20 Range/Units 08:04 08:05 08:05 WBC 7.1 (5.0-10.0) 10^3/uL RBC 3.60 L (4.2-5.4) 10^6/uL Hgb 10.7 L (12.0-16.0) g/dL Hct 33.1 L (37.0-47.0) % MCV 91.9 D (80-100) fL MCH 29.7 (27.0-34.0) pg MCHC 32.3 L (33.0-35.0) g/dL Plt Count 292 (150-450) 10^3/uL Neut % (Auto) 59.9 (42.2-75.2) % Lymph % (Auto) 30.6 (20.5-50.1) % [place] % (Auto) 7.8 (2-8) % Eos % (Auto) 1.4 (1.0-3.0) % Baso % (Auto) 0.3 (0.0-1.0) % Sodium 142 (136-145) mmol/L Potassium 4.2 (3.5-5.1) mmol/L Chloride 105 (98-107) mmol/L Carbon Dioxide 26 (21-32) mmol/L Anion Gap 15.2 H (7-13) mEq/L BUN 20 H (7-18) mg/dL Creatinine 1.24 H (0.55-1.02) mg/dL Est Cr Clr Drug Dosing TNP Estimated GFR (MDRD) 46 BUN/Creatinine Ratio 16.1 (No establ ref range) Glucose 118 H (74-99) mg/dL POC Glucose 103 (70-105) mg/dl Calcium 9.1 (8.5-10.1) mg/dL Total Bilirubin 0.3 (0.2-1.0) mg/dL AST 16 (15-37) U/L ALT 19 (14-59) U/L Alkaline Phosphatase 93 (46-116) U/L Troponin I < 0.017 (0.000-0.056) ng/mL Total Protein 7.7 (6.4-8.2) g/dL Albumin 3.3 L (3.4-5.0) g/dL Globulin 4.4 Albumin/Globulin Ratio 0.75 Urine Color (YELLOW) Urine Appearance (CLEAR) Urine pH (5.0-9.0) Ur Specific [place] (1.005-1.030) Urine Protein (NEGATIVE) Urine Glucose (UA) (NEGATIVE) Urine Ketones (NEGATIVE) Urine Occult Blood (NEGATIVE) Urine Nitrite (NEGATIVE) Urine Bilirubin (NEGATIVE) Urine Urobilinogen (0.2-1.0) mg/dL Ur Leukocyte Esterase (NEGATIVE) Urine Opiates Screen (NEGATIVE) Ur Oxycodone Screen (NEGATIVE) Urine Methadone Screen (NEGATIVE) Ur Barbiturates Screen (NEGATIVE) U Tricyclic Antidepress (NEGATIVE) Ur Phencyclidine Scrn (NEGATIVE) Ur Amphetamine Screen (NEGATIVE) U Methamphetamines Scrn (NEGATIVE) Urine MDMA Screen (NEGATIVE) U Benzodiazepines Scrn (NEGATIVE) Urine Cocaine Screen (NEGATIVE) U Marijuana (THC) Screen (NEGATIVE) Ethyl Alcohol < 3 (0) mg/dL 04/26/20 04/26/20 04/26/20 Range/Units 08:35 08:35 13:48 WBC (5.0-10.0) 10^3/uL RBC (4.2-5.4) 10^6/uL Hgb (12.0-16.0) g/dL Hct (37.0-47.0) % MCV (80-100) fL MCH (27.0-34.0) pg MCHC (33.0-35.0) g/dL Plt Count (150-450) 10^3/uL Neut % (Auto) (42.2-75.2) % Lymph % (Auto) (20.5-50.1) % [place] % (Auto) (2-8) % Eos % (Auto) (1.0-3.0) % Baso % (Auto) (0.0-1.0) % Sodium (136-145) mmol/L Potassium (3.5-5.1) mmol/L Chloride (98-107) mmol/L Carbon Dioxide (21-32) mmol/L Anion Gap (7-13) mEq/L BUN (7-18) mg/dL Creatinine (0.55-1.02) mg/dL Est Cr Clr Drug Dosing Estimated GFR (MDRD) BUN/Creatinine Ratio (No establ ref range) Glucose (74-99) mg/dL POC Glucose 96 (70-105) mg/dl Calcium (8.5-10.1) mg/dL Total Bilirubin (0.2-1.0) mg/dL AST (15-37) U/L ALT (14-59) U/L Alkaline Phosphatase (46-116) U/L Troponin I (0.000-0.056) ng/mL Total Protein (6.4-8.2) g/dL Albumin (3.4-5.0) g/dL Globulin Albumin/Globulin Ratio Urine Color Yellow (YELLOW) Urine Appearance Clear (CLEAR) Urine pH 6.0 (5.0-9.0) Ur Specific [place] 1.010 (1.005-1.030) Urine Protein Negative (NEGATIVE) Urine Glucose (UA) Negative (NEGATIVE) Urine Ketones Negative (NEGATIVE) Urine Occult Blood Negative (NEGATIVE) Urine Nitrite Negative (NEGATIVE) Urine Bilirubin Negative (NEGATIVE) Urine Urobilinogen 0.2 (0.2-1.0) mg/dL Ur Leukocyte Esterase Negative (NEGATIVE) Urine Opiates Screen Negative (NEGATIVE) Ur Oxycodone Screen Negative (NEGATIVE) Urine Methadone Screen Negative (NEGATIVE) Ur Barbiturates Screen Negative (NEGATIVE) U Tricyclic Antidepress Negative (NEGATIVE) Ur Phencyclidine Scrn Negative (NEGATIVE) Ur Amphetamine Screen Negative (NEGATIVE) U Methamphetamines Scrn Negative (NEGATIVE) Urine MDMA Screen Negative (NEGATIVE) U Benzodiazepines Scrn Negative (NEGATIVE) Urine Cocaine Screen Negative (NEGATIVE) U Marijuana (THC) Screen Negative (NEGATIVE) Ethyl Alcohol (0) mg/dL Med Orders - Current: Current Medications Albuterol/Ipratropium (Duoneb 3.0-0.5 Mg/3 Ml) 3 ml NEB Q6HRRT DARRELL Albuterol/Ipratropium (Duoneb 3.0-0.5 Mg/3 Ml) 3 ml NEB Q2H PRN PRN Reason: sob Aspirin (Ecotrin) 325 mg PO DAILY DARRELL Atenolol (Tenormin) 25 mg PO DAILY DARRELL Gabapentin (Neurontin) 600 mg PO TID DARRELL Heparin Sodium (Porcine) (Heparin Sodium) 5,000 units SUBCUT Q8HR DARRELL Lisinopril (Prinivil) 30 mg PO DAILY DARRELL Mometasone Furoate/Formoterol Fumar (Dulera 200-5 Mcg) 1 puff IH BID DARRELL Pravastatin Sodium (Pravachol) 20 mg PO BEDTIME DARRELL Discontinued Medications Aspirin (Aspirin) 324 mg PO ONETIME ONE Stop: 04/26/20 08:48 Last Admin: 04/26/20 09:37 Dose: 324 mg Documented by: - Exam General: Reports: Alert, Oriented Neck: Reports: Supple Lungs: Reports: Clear to Auscultation, Normal Respiratory Effort GI/Abdominal Exam: Normal Bowel Sounds, Soft, Non-Tender Extremities: No Pedal Edema Neurological: Reports: Other (left sided weakness) Psy/Mental Status: Reports: Alert, Normal Affect
[2020-04-26] MEDS ORDERED: Gabapentin 300 MG Cap PO SCH (21:00)
[2020-04-26] MEDS ORDERED: Pravastatin 20 MG Tab PO SCH (21:00)
[2020-04-26] MEDS ORDERED: Formoterol/Mometasone 200-5 MCG 8.8 GM Inhaler IH SCH (21:00)
[2020-04-27] MEDS ORDERED: Lisinopril 10 MG Tab PO SCH (09:00)
[2020-04-27] MEDS ORDERED: Aspirin 325 MG Tab.EC PO SCH (09:00)
[2020-04-27] MEDS ORDERED: Atenolol 25 MG Tab PO SCH (09:00)
--- NOTE | 2020-05-01 13:20 | CT ---
PROCEDURE INFORMATION: Exam: CT Head Without Contrast Exam date and time: 04/26/2020 7:45 AM Age: 49 years old Clinical indication: Injury or trauma; Fall; Initial encounter; Blunt trauma (contusions or hematomas); With loss of consciousness; Not specified; Additional info: Fall last night, head injury with loc last night TECHNIQUE: Imaging protocol: Computed tomography of the head without contrast. Radiation optimization: All CT scans at this facility use at least one of these dose optimization techniques: automated exposure control; mA and/or kV adjustment per patient size (includes targeted exams where dose is matched to clinical indication); or iterative reconstruction. Other technique: STROKE PROTOCOL was implemented. COMPARISON: No relevant prior studies available. FINDINGS: Brain: Normal. No hemorrhage. Unremarkable white matter. No mass effect. Ventricles: Normal. No ventriculomegaly. Bones/joints: Unremarkable. No acute fracture. Sinuses: Visualized sinuses are unremarkable. No fluid levels. Mastoid air cells: Visualized mastoid air cells are well aerated. Soft tissues: Unremarkable. IMPRESSION: No acute intracranial abnormality or injury. Normal brain. ASSESSMENT: ASPECTS ([place] Stroke Program Early CT Score) is 10. PROCEDURE INFORMATION: Exam: CT Cervical Spine Without Contrast Exam date and time: 04/26/2020 7:45 AM Age: 49 years old Clinical indication: Injury or trauma; Fall; Initial encounter; Blunt trauma (contusions or hematomas); With loss of consciousness; Not specified; Additional info: Fall last night, head injury with loc last night TECHNIQUE: Imaging protocol: Computed tomography images of the cervical spine without contrast. Radiation optimization: All CT scans at this facility use at least one of these dose optimization techniques: automated exposure control; mA and/or kV adjustment per patient size (includes targeted exams where dose is matched to clinical indication); or iterative reconstruction. COMPARISON: No relevant prior studies available. FINDINGS: Vertebrae: No acute fracture. Normal alignment, except for mild straightening of the cervical spine. Chronic degenerative vertebral body endplate osteophytosis with diminished disc height is seen at levels C4-T1. Discs/Spinal canal/Neural foramina: No significant disc protrusion. No severe spinal canal stenosis. No significant neural foraminal narrowing. Soft tissues: Unremarkable prevertebral and posterior paraspinal soft tissues. Lungs: Lung apices are normal. IMPRESSION: 1. No acute findings, except for mild straightening of the cervical spine. This could simply be a technical artifact due to flexed-neck positioning of the patient in the CT scanner or the presence of a cervical collar but more likely reflects chronic pain and/or muscle spasm related to chronic degenerative change or remote whiplash injury and/or ligamentous laxity. 2. Chronic degenerative discovertebral disease at levels C4-T1. 3. No significant spinal canal or neuroforaminal stenosis.
--- NOTE | 2020-05-01 13:32 | CR ---
PROCEDURE INFORMATION: Exam: XR Left Shoulder Exam date and time: 04/26/2020 7:55 AM Age: 49 years old Clinical indication: Injury or trauma; Fall; Initial encounter; Blunt trauma (contusions or hematomas; Shoulder; Left; Additional info: Fall last night, left shoulder pain TECHNIQUE: Imaging protocol: XR Left shoulder. Views: 2 or more views. COMPARISON: No relevant prior studies available. FINDINGS: Limitations: Body habitus degrades image quality and signal to noise ratio compromising the study. Bones/joints: Mild degenerative changes at the acromioclavicular joint space. No displaced fracture identified. No dislocation of the Soft tissues: Normal. IMPRESSION: No displaced fracture identified.
== END 2020-04-26 15:05 | DRG 57 ==
LOC: DL.ED 07:34 → DL.MS 10:17 → UNDOADMIN 10:17 → DL.MS 10:54 → EEVIPCON 10:54
PROVIDERS: ADMIT Internal Medicine; ATTEND Internal Medicine
DX: I69.354 Hemiplegia and hemiparesis following cerebral infarction affecting left non-dominant side (principal); E11.42 Type 2 diabetes mellitus with diabetic polyneuropathy; R51 Headache; I63.9 Cerebral infarction, unspecified; R20.0 Anesthesia of skin; H54.7 Unspecified visual loss; I25.10 Atherosclerotic heart disease of native coronary artery without angina pectoris; I10 Essential (primary) hypertension; I25.2 Old myocardial infarction; E78.00 Pure hypercholesterolemia, unspecified; G47.30 Sleep apnea, unspecified; J44.9 Chronic obstructive pulmonary disease, unspecified; K21.9 Gastro-esophageal reflux disease without esophagitis; M19.90 Unspecified osteoarthritis, unspecified site; F41.0 Panic disorder [episodic paroxysmal anxiety]; G89.29 Other chronic pain; M54.9 Dorsalgia, unspecified; M54.2 Cervicalgia; Z86.73 Personal history of transient ischemic attack (TIA), and cerebral infarction without residual deficits; E11.40 Type 2 diabetes mellitus with diabetic neuropathy, unspecified; F32.9 Major depressive disorder, single episode, unspecified; F41.9 Anxiety disorder, unspecified; E66.9 Obesity, unspecified; Z90.49 Acquired absence of other specified parts of digestive tract; D64.9 Anemia, unspecified; Z68.34 Body mass index [BMI] 34.0-34.9, adult; Z98.890 Other specified postprocedural states; Z87.891 Personal history of nicotine dependence; Z88.8 Allergy status to other drugs, medicaments and biological substances; Z79.82 Long term (current) use of aspirin; Z79.4 Long term (current) use of insulin; Z79.899 Other long term (current) drug therapy
CPT/HCPCS: 36415; 70450; 71045; 72125; 73030; 80053; 80305; 80307; 81003; 82962 ×2; 84484; 85025; 93005 ×2; 99285; A9270

== ENCOUNTER 2020-07-23 06:23 | Emergency (ER) | payer MEDICAID ==
[2020-07-23] MEDS ORDERED: Ondansetron 4 MG Tab.DIS PO ONE ×2 (06:24→06:58)
[2020-07-23] MEDS ORDERED: Acetaminophen 325 MG Tab PO ONE ×2 (06:24→06:58)
[2020-07-23 06:32] VITALS: BP 120/84; PULSE 102
--- NOTE | 2020-07-23 06:35 | EDM.PDOC ---
"<Dawood James - Last Filed: 07/23/20 07:00> ED HPI GENERAL MEDICAL PROBLEM - General Chief Complaint: Respiratory Problem Stated Complaint: AMBULANCE Time Seen by Provider: 07/23/20 06:30 Source of Information: Reports: Patient, EMS History Limitations: Reports: No Limitations - History of Present Illness INITIAL COMMENTS - FREE TEXT/NARRATIVE: ED via [facility] with report not being able to sleep, Dx COVID yesterday. Cough, chills. Nausea, dry heaves. Diarrhea Wednesday. Exhausted . Feels SOB tonight Generalized Pain Score (Numeric/FACES): 8 - Related Data Allergies Allergy/AdvReac Type Severity Reaction Status Date / Time levonorgestrel Allergy Cannot Verified 04/26/20 11:45 Remember trazodone Allergy Swelling Verified 04/26/20 11:45 mint chocolate chip flavor Allergy Swelling Uncoded 01/01/20 13:51 seasonal Allergy Cannot Uncoded 01/01/20 13:51 Remember Home Meds: Home Meds Acetaminophen [Tylenol Extra Strength] 1,000 mg PO Q6H PRN 11/17/14 [History] EPINEPHrine [Epipen] 0.3 ml SUBCUT ASDIRECTED PRN 11/17/14 [History] Fluticasone Propionate [Flonase] 2 sprays NASBOTH DAILY 11/17/14 [History] Lactobacillus Acidophilus [Probiotic] 1 tab PO DAILY 11/17/14 [History] tiZANidine [Zanaflex] 4 mg PO Q8HR PRN 02/20/15 [History] DULoxetine [Cymbalta] 120 mg PO DAILY 08/01/15 [History] metFORMIN [Glucophage XR] 1,000 mg PO ASDIRECTED 12/15/15 [History] Ascorbic Acid [Vitamin C] 250 mg PO BID 08/31/18 [History] Ferrous Sulfate 325 mg PO BID 08/31/18 [History] Lisinopril 15 mg PO DAILY 08/31/18 [History] atenoloL [Atenolol] 25 mg PO DAILY 08/31/18 [History] Nitroglycerin 0.4 mg SL ASDIRECTED PRN 10/18/19 [History] Gabapentin [Neurontin] 600 mg PO TID 01/01/20 [History] Insulin Detemir [Levemir] 40 units INJECT BID 01/01/20 [History] Multivitamin with Minerals [Multiple Vitamin] 1 tab PO DAILY 01/01/20 [History] Albuterol Sulfate [Albuterol Sulfate Hfa] 2 puff INH Q4H PRN 04/26/20 [History] Aspirin [Aspirin EC] 325 mg PO DAILY 04/26/20 [History] Pravastatin [Pravachol] 40 mg PO BEDTIME 04/26/20 [History] buPROPion HCL [Bupropion Xl] 150 mg PO DAILY 04/26/20 [History] Ibuprofen 800 mg PO BID PRN 06/10/20 [History] Liraglutide [Victoza] 1.8 mg INJECT DAILY 06/10/20 [History] Pantoprazole Sodium [Protonix] 40 mg PO DAILY 06/10/20 [History] Past Medical History HEENT History: Reports: Impaired Vision Cardiovascular History: Reports: CAD, High Cholesterol, Hypertension, [place] Respiratory History: Reports: Asthma, COPD, Sleep Apnea Other Respiratory History: uses c-pap at home. 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 Musculoskeletal History: Reports: Arthritis, Back Pain, Chronic, Neck Pain, Chronic, Other (See Below) Other Musculoskeletal History: Neck and back Neurological History: Reports: CVA, Migraines, Neuropathy, Diabetic Psychiatric History: Reports: Anxiety, Depression, Panic Attack, Suicide Attempt Endocrine/Metabolic History: Reports: Diabetes, Type II, Obesity/BMI 30+ Hematologic History: Reports: Anemia Immunologic History: Reports: None Oncologic (Cancer) History: Reports: None Dermatologic History: Reports: None - Infectious Disease History Infectious Disease History: Reports: Chicken Pox, Measles, MRSA, Mumps - Past Surgical History Head Surgeries/Procedures: Reports: None HEENT Surgical History: Reports: None Cardiovascular Surgical History: Reports: None Respiratory Surgical History: Reports: None GI Surgical History: Reports: Appendectomy Female Surgical History: Reports: D&C, Other (See Below) Other Female Surgeries/Procedures: 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 Neurological Surgical History: Reports: None Musculoskeletal Surgical History: Reports: None Social & Family History - Family History Family Medical History: No Pertinent Family History - Caffeine Use Caffeine Use: Reports: Coffee Caffeine Use Comment: 2 cups coffee daily - Living Situation & Occupation Living situation: Reports: with Family Occupation: Unemployed ED ROS GENERAL - Review of Systems Review Of Systems: Comprehensive ROS is negative, except as noted in HPI. ED EXAM, GENERAL - Physical Exam Exam: See Below Exam Limited By: No Limitations General Appearance: Alert, Mild Distress, Obese Eye Exam: Bilateral Eye: EOMI, PERRL Ears: Normal External Exam, Normal TMs Nose: Normal Inspection Throat/Mouth: Normal Inspection Head: Atraumatic, Normocephalic Neck: Normal Inspection Respiratory/Chest: No Respiratory Distress, Lungs Clear, Decreased Breath Sounds (bilateral bases) Cardiovascular: Normal Peripheral Pulses, Regular Rate, Rhythm GI/Abdominal: Normal Bowel Sounds, Soft Neurological: Alert, Oriented, Normal Cognition Skin Exam: Warm, Dry, Intact, Normal Color Departure - Departure Disposition: Home, Self-Care 01 Clinical Impression: COVID-19 virus infection, Elevated d-dimer - Discharge Information Instructions: COVID-19 Frequently Asked Questions, COVID-19: How to Protect Yourself and Others - CDC Forms: ED Department Discharge Additional Instructions: Rx: Zofran 1.) Drink plenty of fluids to stay hydrated. 2.) Eat a bland diet, no spicy or high-fat foods, to avoid nausea/vomiting. 3.) Eat small, frequent meals to avoid nausea/vomiting. 4.) You may take acetaminophen (Tylenol) 650mg every six hours. You may take ibuprofen (Motrin/Advil) 400mg every six hours. You may stagger these medication so you are taking a dose every three hours. Sepsis Event Note (ED) - Evaluation Sepsis Screening Result: No Definite Risk <Dulce Maldonado - Last Filed: 07/23/20 09:39> Course - Vital Signs Last Recorded V/S: Last Vital Signs Temp 97.8 F 07/23/20 06:24 Pulse 102 H 07/23/20 06:24 Resp 18 07/23/20 06:24 BP 120/84 07/23/20 06:24 Pulse Ox 98 07/23/20 06:24 - Orders/Labs/Meds Labs: Laboratory Tests 07/23/20 07/23/20 07/23/20 Range/Units 07:15 07:15 07:15 WBC 4.6 L (5.0-10.0) 10^3/uL RBC 3.72 L (4.2-5.4) 10^6/uL Hgb 11.5 L (12.0-16.0) g/dL Hct 34.7 L (37.0-47.0) % MCV 93.3 (80-100) fL MCH 30.9 (27.0-34.0) pg MCHC 33.1 (33.0-35.0) g/dL Plt Count 254 (150-450) 10^3/uL Neut % (Auto) 44.2 (42.2-75.2) % Lymph % (Auto) 36.5 (20.5-50.1) % [place] % (Auto) 16.8 H (2-8) % Eos % (Auto) 1.8 (1.0-3.0) % Baso % (Auto) 0.7 (0.0-1.0) % D-Dimer, Quantitative 1410 H (0-400) ng/mL Sodium 138 (136-145) mmol/L Potassium 4.1 (3.5-5.1) mmol/L Chloride 103 (98-107) mmol/L Carbon Dioxide 24 (21-32) mmol/L Anion Gap 15.1 H (7-13) mEq/L BUN 20 H (7-18) mg/dL Creatinine 1.09 H (0.55-1.02) mg/dL Est Cr Clr Drug Dosing 48.84 mL/min Estimated GFR (MDRD) 53 BUN/Creatinine Ratio 18.3 (No establ ref range) Glucose 108 H (74-99) mg/dL Lactic Acid (0.4-2.0) mmol/L Calcium 9.0 (8.5-10.1) mg/dL Magnesium 1.4 L (1.8-2.4) mg/dL Total Bilirubin 0.3 (0.2-1.0) mg/dL AST 15 (15-37) U/L ALT 27 (14-59) U/L Alkaline Phosphatase 84 (46-116) U/L Troponin I < 0.017 (0.000-0.056) ng/mL Total Protein 7.6 (6.4-8.2) g/dL Albumin 3.4 (3.4-5.0) g/dL Globulin 4.2 Albumin/Globulin Ratio 0.8 Amylase 54 (25-115) U/L 07/23/20 Range/Units 07:15 WBC (5.0-10.0) 10^3/uL RBC (4.2-5.4) 10^6/uL Hgb (12.0-16.0) g/dL Hct (37.0-47.0) % MCV (80-100) fL MCH (27.0-34.0) pg MCHC (33.0-35.0) g/dL Plt Count (150-450) 10^3/uL Neut % (Auto) (42.2-75.2) % Lymph % (Auto) (20.5-50.1) % [place] % (Auto) (2-8) % Eos % (Auto) (1.0-3.0) % Baso % (Auto) (0.0-1.0) % D-Dimer, Quantitative (0-400) ng/mL Sodium (136-145) mmol/L Potassium (3.5-5.1) mmol/L Chloride (98-107) mmol/L Carbon Dioxide (21-32) mmol/L Anion Gap (7-13) mEq/L BUN (7-18) mg/dL Creatinine (0.55-1.02) mg/dL Est Cr Clr Drug Dosing mL/min Estimated GFR (MDRD) BUN/Creatinine Ratio (No establ ref range) Glucose (74-99) mg/dL Lactic Acid 1.1 (0.4-2.0) mmol/L Calcium (8.5-10.1) mg/dL Magnesium (1.8-2.4) mg/dL Total Bilirubin (0.2-1.0) mg/dL AST (15-37) U/L ALT (14-59) U/L Alkaline Phosphatase (46-116) U/L Troponin I (0.000-0.056) ng/mL Total Protein (6.4-8.2) g/dL Albumin (3.4-5.0) g/dL Globulin Albumin/Globulin Ratio Amylase (25-115) U/L Meds: Medications Discontinued Medications Generic Name Dose Route Start Last Admin Trade Name Freq PRN Reason Stop Dose Admin Acetaminophen Confirm 07/23/20 06:54 07/23/20 07:00 Tylenol Administered 07/23/20 06:55 Not Given Dose 650 mg .ROUTE .STK-MED ONE Acetaminophen 650 mg 07/23/20 06:58 07/23/20 06:59 Tylenol PO 07/23/20 06:59 650 mg NOW ONE Administration Magnesium Sulfate 2 gm in 50 mls @ 50 mls/hr 07/23/20 07:57 07/23/20 08:55 Magnesium Sulfate In Water Premix IV 07/23/20 08:56 50 mls/hr ONETIME ONE Administration Iopamidol 100 ml 07/23/20 09:01 07/23/20 09:02 Isovue-370 (76%) IVPUSH 07/23/20 09:02 77 ml ONETIME ONE Administration Ondansetron HCl Confirm 07/23/20 06:54 07/23/20 07:00 Zofran Odt Administered 07/23/20 06:55 Not Given Dose 4 mg .ROUTE .STK-MED ONE Ondansetron HCl 4 mg 07/23/20 06:58 07/23/20 07:00 Zofran Odt PO 07/23/20 06:59 4 mg ONETIME ONE Administration - Radiology Interpretation Free Text/Narrative:: [facility] Final Radiology Report Call: [phone] assistance Online chat: [email or web address] Name: KARI RIBEIRO Age: 49Years F Date: 07/23/2020 SSN: -- : [id number] Study: CR CHEST 1V FRONTAL Requesting Physician: DAWOOD JAMES Images: 1 Addl Studies: Provided Clinical History: cough COVID Contrast: Contrast Medium: Contrast Amount: Contrast Method: CONFIDENTIALITY STATEMENT This report is intended only for use by the referring physician, and only in accordance with law. If you received this in error, call [phone]. Page 1 of 1 PROCEDURE INFORMATION: Exam: XR Chest, 1 View Exam date and time: 07/23/2020 7:17 AM Age: 49 years old Clinical indication: Cough; Additional info: Cough covid TECHNIQUE: Imaging protocol: XR of the chest Views: 1 view. COMPARISON: CR Chest 1V Frontal 04/26/2020 9:01 AM FINDINGS: Lungs: There may be mild patchy airspace opacity at the right base medially. The lungs are otherwise clear. Pleural space: Unremarkable. No pleural effusion. No pneumothorax. Heart/Mediastinum: The cardiomediastinal silhouette is stable in appearance allowing for differences in positioning. Bones/joints: A chronic right rib fracture is again present. IMPRESSION: Potential patchy medial right basilar airspace opacity. Consider PA and lateral views for better assessment when the patient is able. Thank you for allowing us to participate in the care of your patient. Dictated and Authenticated by: Oumar Daniel MD 07/23/2020 7:34 AM Central Time ([place] & [place]) [facility] Final Radiology Report Call: [phone] assistance Online chat: [email or web address] Name: KARI RIBEIRO Age: 49Years F Date: 07/23/2020 SSN: -- : [id number] Study: CT CHEST W CONT Requesting Physician: Dulce Maldonado Images: 483 Addl Studies: Provided Clinical History: Shortness of breath; COVID+; D-Dimer 1400 Contrast: With Contrast Medium: Isovue 370 Contrast Amount: 77 mL Contrast Method: Intravenous (IV) Page 1 of 2 PROCEDURE INFORMATION: Exam: CT Chest With Contrast; Diagnostic Exam date and time: 07/23/2020 8:40 AM Age: 49 years old Clinical indication: Other: Shortness of breath; Covid+; D-dimer 1400 TECHNIQUE: Imaging protocol: Diagnostic computed tomography of the chest with intravenous contrast. Radiation optimization: All CT scans at this facility use at least one of these dose optimization techniques: automated exposure control; mA and/or kV adjustment per patient size (includes targeted exams where dose is matched to clinical indication); or iterative reconstruction. Contrast material: ISOVUE 370; Contrast volume: 77 ml; Contrast route: INTRAVENOUS (IV); COMPARISON: CT Ang Chest 03/14/2019 10:49 AM FINDINGS: Lungs: A few small foci of patchy ground-glass opacity are present in the periphery of the right middle and lower lobes. Minor dependent atelectasis is present bilaterally. The lungs are otherwise clear. Pleural space: Unremarkable. No pneumothorax. No pleural effusion. Heart: Unremarkable. No cardiomegaly. No pericardial effusion. Mediastinal space: There are minor mucus secretions in the trachea. Pulmonary arteries: No pulmonary embolus is identified. Aorta: The thoracic aorta is nonaneurysmal. Atherosclerotic vascular calcifications are noted. Lymph nodes: Unremarkable. No enlarged lymph nodes. Gallbladder and bile ducts: Stones are present in the gallbladder. Spleen: Some perisplenic varices are noted. Bones/joints: Degenerative changes involve the spine. KARI RIBEIRO | Final Radiology Report CONFIDENTIALITY STATEMENT This report is intended only for use by the referring physician, and only in accordance with law. If you received this in error, call [phone]. Page 2 of 2 Soft tissues: Unremarkable. IMPRESSION: 1. No pulmonary embolus identified. 2. Few small foci of patchy ground-glass opacity in the periphery of the right middle and lower lobes. Such imaging features are commonly reported with COVID-19 pneumonia, but other processes such as influenza pneumonia and organizing pneumonia, as can be seen with drug toxicity and connective tissue disease, can cause a similar imaging pattern. (Reference: [place]) 3. Cholelithiasis. 4. Perisplenic varices noted, significance uncertain. REFERENCES: [place] Chopra, et al., Radiological Society of [place] Expert Consensus Statement on Reporting Chest CT Findings Related to COVID-19. Endorsed by the Society of Thoracic Radiology, the [place] [employer], and RSNA. Published November 15, 2019. Thank you for allowing us to participate in the care of your patient. Dictated and Authenticated by: Oumar Daniel MD 07/23/2020 9:15 AM Central Time ([place] & [place]) - Re-Assessments/Exams Free Text/Narrative Re-Assessment/Exam: 07/23/20 D-dimer elevated at 1400+, given worsening shortness of breath in the presence of COVID, will obtain PE study. Will replace Mag, as it is 1.4 today. Departure - Departure Time of Disposition: 09:21 Condition: Good - Discharge Information *PRESCRIPTION DRUG MONITORING PROGRAM REVIEWED*: Not Applicable *COPY OF PRESCRIPTION DRUG MONITORING REPORT IN PATIENT VIKKI: Not Applicable Sepsis Event Note (ED) - Focused Exam Vital Signs: Vital Signs Temp Pulse Resp BP Pulse Ox 07/23/20 06:24 97.8 F 102 H 18 120/84 98"
[2020-07-23] MEDS ORDERED: Acetaminophen 325 MG Tab ONE (06:54)
[2020-07-23] MEDS ORDERED: Ondansetron 4 MG Tab.DIS ONE (06:54)
--- NOTE | 2020-07-23 07:35 | CR ---
PROCEDURE INFORMATION: Exam: XR Chest, 1 View Exam date and time: 07/23/2020 7:17 AM Age: 49 years old Clinical indication: Cough; Additional info: Cough covid TECHNIQUE: Imaging protocol: XR of the chest Views: 1 view. COMPARISON: CR Chest 1V Frontal 04/26/2020 9:01 AM FINDINGS: Lungs: There may be mild patchy airspace opacity at the right base medially. The lungs are otherwise clear. Pleural space: Unremarkable. No pleural effusion. No pneumothorax. Heart/Mediastinum: The cardiomediastinal silhouette is stable in appearance allowing for differences in positioning. Bones/joints: A chronic right rib fracture is again present. IMPRESSION: Potential patchy medial right basilar airspace opacity. Consider PA and lateral views for better assessment when the patient is able.
[2020-07-23 07:54] LABS: ANION GAP 15.1 mEq/L (7-13); CHLORIDE,CL 103 mmol/L (98-107); SODIUM,NA 138 mmol/L (136-145)
[2020-07-23] MEDS ORDERED: Magnesium Sulfate/Water 2 GM/50 ML BAG IV ONE (07:57)
[2020-07-23] MEDS ORDERED: Iopamidol 755 Mg/ML 100 ML Bottle IVPUSH ONE (09:01)
--- NOTE | 2020-07-23 09:16 | CT ---
PROCEDURE INFORMATION: Exam: CT Chest With Contrast; Diagnostic Exam date and time: 07/23/2020 8:40 AM Age: 49 years old Clinical indication: Other: Shortness of breath; Covid+; D-dimer 1400 TECHNIQUE: Imaging protocol: Diagnostic computed tomography of the chest with intravenous contrast. Radiation optimization: All CT scans at this facility use at least one of these dose optimization techniques: automated exposure control; mA and/or kV adjustment per patient size (includes targeted exams where dose is matched to clinical indication); or iterative reconstruction. Contrast material: ISOVUE 370; Contrast volume: 77 ml; Contrast route: INTRAVENOUS (IV); COMPARISON: CT Ang Chest 03/14/2019 10:49 AM FINDINGS: Lungs: A few small foci of patchy ground-glass opacity are present in the periphery of the right middle and lower lobes. Minor dependent atelectasis is present bilaterally. The lungs are otherwise clear. Pleural space: Unremarkable. No pneumothorax. No pleural effusion. Heart: Unremarkable. No cardiomegaly. No pericardial effusion. Mediastinal space: There are minor mucus secretions in the trachea. Pulmonary arteries: No pulmonary embolus is identified. Aorta: The thoracic aorta is nonaneurysmal. Atherosclerotic vascular calcifications are noted. Lymph nodes: Unremarkable. No enlarged lymph nodes. Gallbladder and bile ducts: Stones are present in the gallbladder. Spleen: Some perisplenic varices are noted. Bones/joints: Degenerative changes involve the spine. Soft tissues: Unremarkable. IMPRESSION: 1. No pulmonary embolus identified. 2. Few small foci of patchy ground-glass opacity in the periphery of the right middle and lower lobes. Such imaging features are commonly reported with COVID-19 pneumonia, but other processes such as influenza pneumonia and organizing pneumonia, as can be seen with drug toxicity and connective tissue disease, can cause a similar imaging pattern. (Reference: [place]) 3. Cholelithiasis. 4. Perisplenic varices noted, significance uncertain. REFERENCES: [place] Chopra, et al., Radiological Society of [place] Expert Consensus Statement on Reporting Chest CT Findings Related to COVID-19. Endorsed by the Society of Thoracic Radiology, the [place] [employer], and RSNA. Published November 15, 2019.
== END 2020-07-23 10:05 | disposition home or self-care (01) ==
LOC: DL.ED 06:23
DX: U07.1 COVID-19 (principal); R79.1 Abnormal coagulation profile; I10 Essential (primary) hypertension; I25.10 Atherosclerotic heart disease of native coronary artery without angina pectoris; E78.00 Pure hypercholesterolemia, unspecified; I25.2 Old myocardial infarction; J44.9 Chronic obstructive pulmonary disease, unspecified; K21.9 Gastro-esophageal reflux disease without esophagitis; M19.90 Unspecified osteoarthritis, unspecified site; F41.9 Anxiety disorder, unspecified; F32.9 Major depressive disorder, single episode, unspecified; E11.40 Type 2 diabetes mellitus with diabetic neuropathy, unspecified; D64.9 Anemia, unspecified; E66.9 Obesity, unspecified; Z68.39 Body mass index [BMI] 39.0-39.9, adult; Z88.8 Allergy status to other drugs, medicaments and biological substances; Z88.5 Allergy status to narcotic agent; Z91.048 Other nonmedicinal substance allergy status; Z91.018 Allergy to other foods; Z79.899 Other long term (current) drug therapy; Z79.82 Long term (current) use of aspirin; Z79.4 Long term (current) use of insulin
CPT/HCPCS: 36415; 71045; 71260; 80053; 82150; 83605; 83735; 84484; 85025; 85379; 96365; 99285; A9270; J3475; Q9967

== ENCOUNTER 2020-08-02 09:10 | Emergency (ER) | payer MEDICAID ==
[2020-08-02 09:04] VITALS: BP 118/72; PULSE 86
--- NOTE | 2020-08-02 09:47 | CR ---
PROCEDURE INFORMATION: Exam: XR Chest, 1 View Exam date and time: 08/02/2020 9:40 AM Age: 49 years old Clinical indication: Shortness of breath TECHNIQUE: Imaging protocol: XR of the chest Views: 1 view. COMPARISON: CT Chest w Cont, Chest w Cont 07/29/2020 10:44 PM FINDINGS: Limitations: Body habitus degrades image quality and signal to noise ratio compromising the study. Lungs: Mild ground-glass airspace disease within the lower lung [place] bilaterally. Pleural space: Unremarkable. No pleural effusion. No pneumothorax. Heart/Mediastinum: Borderline heart size Bones/joints: Unremarkable. IMPRESSION: Mild ground-glass airspace disease within the lower lung [place] bilaterally. Followup radiographs recommended after appropriate therapy.
[2020-08-02 09:55] LABS: CHLORIDE,CL 100 mmol/L (98-107); SODIUM,NA 135 mmol/L (136-145)
--- NOTE | 2020-08-02 10:00 | EDM.PDOC ---
ED HPI GENERAL MEDICAL PROBLEM - General Chief Complaint: Respiratory Problem Stated Complaint: AMBULANCE Time Seen by Provider: 08/02/20 09:15 Source of Information: Reports: Patient, EMS, Old Records, RN, RN Notes Reviewed History Limitations: Reports: No Limitations - History of Present Illness INITIAL COMMENTS - FREE TEXT/NARRATIVE: Patient presents to the ED via EMS with complaints of progressive shortness of breath and "low oxygen saturations." The patient states she was discharged from this facility on 07/30/2020 following an admission for complications of COVID pneumonia; she was discharged on Zithromax and home O2. The patient states she feels as though she is not improving and is worried that she is requiring "..so much oxygen." She states she feels as though her health is not being appropriately managed and she would like to go to [facility]. Today she attests to muscle aches, fatigue, shaking chills, cough, sore throat, nausea, and intermittent diarrhea. She denies fever, headache, vomiting, hematochezia, and melena. She states she has been taking her Zithromax but is not experiencing improvement. She denies receiving steroids for this problem. She denies tobacco, alcohol, or recreational drug use. Generalized Pain Score (Numeric/FACES): 7 - Related Data Allergies Allergy/AdvReac Type Severity Reaction Status Date / Time levonorgestrel Allergy Cannot Verified 08/02/20 09:04 Remember trazodone Allergy Swelling Verified 08/02/20 09:04 barbeque Allergy Other Uncoded 08/02/20 09:04 mint chocolate chip flavor Allergy Swelling Uncoded 08/02/20 09:04 seasonal Allergy Cannot Uncoded 08/02/20 09:04 Remember Home Meds: Home Meds Acetaminophen [Tylenol Extra Strength] 1,000 mg PO Q6H PRN 11/17/14 [History] EPINEPHrine [Epipen] 0.3 ml SUBCUT ASDIRECTED PRN 11/17/14 [History] Fluticasone Propionate [Flonase] 2 sprays NASBOTH DAILY 11/17/14 [History] Lactobacillus Acidophilus [Probiotic] 1 tab PO DAILY 11/17/14 [History] tiZANidine [Zanaflex] 4 mg PO Q8HR PRN 02/20/15 [History] DULoxetine [Cymbalta] 120 mg PO DAILY 08/01/15 [History] metFORMIN [Glucophage XR] 1,000 mg PO ASDIRECTED 12/15/15 [History] Ascorbic Acid [Vitamin C] 250 mg PO BID 08/31/18 [History] Ferrous Sulfate 325 mg PO BID 08/31/18 [History] Lisinopril 15 mg PO DAILY 08/31/18 [History] atenoloL [Atenolol] 25 mg PO DAILY 08/31/18 [History] Nitroglycerin 0.4 mg SL ASDIRECTED PRN 10/18/19 [History] Gabapentin [Neurontin] 600 mg PO TID 01/01/20 [History] Insulin Detemir [Levemir] 40 units INJECT BID 01/01/20 [History] Multivitamin with Minerals [Multiple Vitamin] 1 tab PO DAILY 01/01/20 [History] Albuterol Sulfate [Albuterol Sulfate Hfa] 2 puff INH Q4H PRN 04/26/20 [History] Aspirin [Aspirin EC] 325 mg PO DAILY 04/26/20 [History] Pravastatin [Pravachol] 40 mg PO BEDTIME 04/26/20 [History] buPROPion HCL [Bupropion Xl] 150 mg PO DAILY 04/26/20 [History] Ibuprofen 800 mg PO BID PRN 06/10/20 [History] Liraglutide [Victoza] 1.8 mg INJECT DAILY 06/10/20 [History] Pantoprazole Sodium [Protonix] 40 mg PO DAILY 06/10/20 [History] Azithromycin 500 mg PO DAILY #4 tablet 07/30/20 [Rx] Magnesium Oxide 250 mg PO BIDM #6 tablet 07/30/20 [Rx] Past Medical History HEENT History: Reports: Impaired Vision Cardiovascular History: Reports: CAD, High Cholesterol, Hypertension, [place] Respiratory History: Reports: Asthma, COPD, Sleep Apnea Other Respiratory History: uses c-pap at home. 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 Musculoskeletal History: Reports: Arthritis, Back Pain, Chronic, Neck Pain, Chronic, Other (See Below) Other Musculoskeletal History: Neck and back Neurological History: Reports: CVA, Migraines, Neuropathy, Diabetic Psychiatric History: Reports: Anxiety, Depression, Panic Attack, Suicide Attempt Endocrine/Metabolic History: Reports: Diabetes, Type II, Obesity/BMI 30+ Hematologic History: Reports: Anemia Immunologic History: Reports: None Oncologic (Cancer) History: Reports: None Dermatologic History: Reports: None - Infectious Disease History Infectious Disease History: Reports: Chicken Pox, Measles, MRSA, Mumps - Past Surgical History Head Surgeries/Procedures: Reports: None HEENT Surgical History: Reports: None Other HEENT Surgeries/Procedures: Surgical repair for broken nose and jaw Cardiovascular Surgical History: Reports: None Respiratory Surgical History: Reports: None Other Respiratory Surgeries/Procedures: left lung biopsy. "as long as it doesn't get infected, it doesn't give me any problems" GI Surgical History: Reports: Appendectomy Other GI Surgeries/Procedures: Appy 2-3yrs ago Female Surgical History: Reports: D&C, Other (See Below) Other Female Surgeries/Procedures: 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 Neurological Surgical History: Reports: None Musculoskeletal Surgical History: Reports: None Social & Family History - Family History Family Medical History: No Pertinent Family History - Tobacco Use Tobacco Use Status *Q: Former Tobacco User Years of Tobacco use: 20 Packs/Tins Daily: 1 Used Tobacco, but Quit: Yes Month/Year Tobacco Last Used: august Second Hand Smoke Exposure: No - Caffeine Use Caffeine Use: Reports: Coffee Caffeine Use Comment: 2 cups coffee daily - Recreational Drug Use Recreational Drug Use: No - Living Situation & Occupation Living situation: Reports: with Family Occupation: Unemployed ED ROS GENERAL - Review of Systems Review Of Systems: Comprehensive ROS is negative, except as noted in HPI. ED EXAM, GENERAL - Physical Exam Exam: See Below Exam Limited By: No Limitations General Appearance: Alert, Mild Distress (Work of breathing) Eye Exam: Bilateral Eye: EOMI, Normal Inspection, PERRL (4mm) Ears: Normal External Exam, Normal Canal, Hearing Grossly Normal, Normal TMs Ear Exam: Bilateral Ear: Auricle Normal, Canal Normal, TM normal Nose: Normal Inspection, Clear Rhinorrhea. No: Nasal Tenderness Throat/Mouth: Normal Inspection, Normal Oropharynx, Normal Voice, No Airway Compromise Head: Atraumatic, Normocephalic Neck: Normal Inspection, Supple, Non-Tender, Full Range of Motion. No: Lymphadenopathy (L), Lymphadenopathy (R) Respiratory/Chest: Chest Non-Tender, Crackles (To bilateral bases), Wheezing (Inspiratory to bilateral upper lobes), Accessory Muscle Use Cardiovascular: Normal Peripheral Pulses, Regular Rate, Rhythm, No Edema, No Gallop, No JVD, No Murmur, No Rub Peripheral Pulses: 2+: Radial (L), Radial (R), Dorsalis Pedis (L), Dorsalis Pedis (R) GI/Abdominal: Soft, Non-Tender, No Distention, No Mass, Pelvis Stable, Abnormal Bowel Sounds (Hyperactive; Patient states she is hungry) (Female) Exam: Deferred Rectal (Female) Exam: Deferred Back Exam: Normal Inspection, Full Range of Motion. No: CVA Tenderness (L), CVA Tenderness (R) Extremities: Normal Inspection, Normal Range of Motion, Non-Tender, Normal Capillary Refill, No Pedal Edema Neurological: Alert, Oriented, CN II-XII Intact, Normal Cognition, No Motor/Sensory Deficits Psychiatric: Anxious, Tearful Skin Exam: Warm, Dry, Intact, Normal Color, No Rash. No: Ecchymosis, Erythema, Mottled, Pallor, Petechiae #1 Interpretation EKG Date: 08/02/20 Time: 09:22 Rhythm: NSR Rate (Beats/Min): 85 [place]: Normal P-Wave: Present QRS: Normal ST-T: Normal QT: Normal Comparison: No Change EKG Interpretation Comments: NSR; No evidence of acute ischemia Course - Vital Signs Last Recorded V/S: Last Vital Signs Temp 97 F 08/02/20 08:55 Pulse 86 08/02/20 08:55 Resp 20 08/02/20 08:55 BP 118/72 08/02/20 08:55 Pulse Ox 96 08/02/20 08:55 - Orders/Labs/Meds Labs: Laboratory Tests 08/02/20 08/02/20 08/02/20 Range/Units 09:16 09:16 09:16 WBC 4.5 L (5.0-10.0) 10^3/uL RBC 3.56 L (4.2-5.4) 10^6/uL Hgb 10.9 L (12.0-16.0) g/dL Hct 32.3 L (37.0-47.0) % MCV 90.7 (80-100) fL MCH 30.6 (27.0-34.0) pg MCHC 33.7 (33.0-35.0) g/dL Plt Count 262 (150-450) 10^3/uL Neut % (Auto) 74.1 (42.2-75.2) % Lymph % (Auto) 17.3 L (20.5-50.1) % [place] % (Auto) 8.4 H (2-8) % Eos % (Auto) 0.2 L (1.0-3.0) % Baso % (Auto) 0.0 (0.0-1.0) % Add Manual Diff Yes Neutrophils % (Manual) 76 H (42-75) % Lymphocytes % (Manual) 17 L (20-50) % Monocytes % (Manual) 7 (2-8) % D-Dimer, Quantitative (0-400) ng/mL Sodium 135 L (136-145) mmol/L Potassium 4.0 (3.5-5.1) mmol/L Chloride 100 (98-107) mmol/L Carbon Dioxide 25 (21-32) mmol/L Anion Gap 14.0 H (7-13) mEq/L BUN 13 (7-18) mg/dL Creatinine 0.80 (0.55-1.02) mg/dL Est Cr Clr Drug Dosing 66.54 mL/min Estimated GFR (MDRD) > 60 BUN/Creatinine Ratio 16.2 (No establ ref range) Glucose 164 H (74-99) mg/dL Lactic Acid 1.2 (0.4-2.0) mmol/L Calcium 8.7 (8.5-10.1) mg/dL Total Bilirubin 0.2 (0.2-1.0) mg/dL AST 36 (15-37) U/L ALT 16 (14-59) U/L Alkaline Phosphatase 90 (46-116) U/L Troponin I 0.034 (0.000-0.056) ng/mL C-Reactive Protein 17.1 H (0.0-0.9) mg/dL B-Natriuretic Peptide 32 (0-100) pg/ml Total Protein 7.9 (6.4-8.2) g/dL Albumin 2.8 L (3.4-5.0) g/dL Globulin 5.1 Albumin/Globulin Ratio 0.55 08/02/20 Range/Units 09:16 WBC (5.0-10.0) 10^3/uL RBC (4.2-5.4) 10^6/uL Hgb (12.0-16.0) g/dL Hct (37.0-47.0) % MCV (80-100) fL MCH (27.0-34.0) pg MCHC (33.0-35.0) g/dL Plt Count (150-450) 10^3/uL Neut % (Auto) (42.2-75.2) % Lymph % (Auto) (20.5-50.1) % [place] % (Auto) (2-8) % Eos % (Auto) (1.0-3.0) % Baso % (Auto) (0.0-1.0) % Add Manual Diff Neutrophils % (Manual) (42-75) % Lymphocytes % (Manual) (20-50) % Monocytes % (Manual) (2-8) % D-Dimer, Quantitative 1910 H (0-400) ng/mL Sodium (136-145) mmol/L Potassium (3.5-5.1) mmol/L Chloride (98-107) mmol/L Carbon Dioxide (21-32) mmol/L Anion Gap (7-13) mEq/L BUN (7-18) mg/dL Creatinine (0.55-1.02) mg/dL Est Cr Clr Drug Dosing mL/min Estimated GFR (MDRD) BUN/Creatinine Ratio (No establ ref range) Glucose (74-99) mg/dL Lactic Acid (0.4-2.0) mmol/L Calcium (8.5-10.1) mg/dL Total Bilirubin (0.2-1.0) mg/dL AST (15-37) U/L ALT (14-59) U/L Alkaline Phosphatase (46-116) U/L Troponin I (0.000-0.056) ng/mL C-Reactive Protein (0.0-0.9) mg/dL B-Natriuretic Peptide (0-100) pg/ml Total Protein (6.4-8.2) g/dL Albumin (3.4-5.0) g/dL Globulin Albumin/Globulin Ratio Meds: Medications Discontinued Medications Generic Name Dose Route Start Last Admin Trade Name Freq PRN Reason Stop Dose Admin Dexamethasone 10 mg 08/02/20 10:03 08/02/20 10:12 Decadron IVPUSH 08/02/20 10:04 10 mg ONETIME ONE Administration - Radiology Interpretation Free Text/Narrative:: [facility] [place] [facility] Final Radiology Report Call: [phone] assistance Online chat: [email or web address] Name: KARI RIBEIRO Age: 49Years F Date: 08/02/2020 SSN: -- : [id number] Study: CR CHEST 1V FRONTAL Requesting Physician: Dulce Maldonado Images: 1 Addl Studies: Provided Clinical History: Shortness of breath Contrast: Contrast Medium: Contrast Amount: Contrast Method: CONFIDENTIALITY STATEMENT This report is intended only for use by the referring physician, and only in accordance with law. If you received this in error, call [phone]. Page 1 of 1 PROCEDURE INFORMATION: Exam: XR Chest, 1 View Exam date and time: 08/02/2020 9:40 AM Age: 49 years old Clinical indication: Shortness of breath TECHNIQUE: Imaging protocol: XR of the chest Views: 1 view. COMPARISON: CT Chest w Cont, Chest w Cont 07/29/2020 10:44 PM FINDINGS: Limitations: Body habitus degrades image quality and signal to noise ratio compromising the study. Lungs: Mild ground-glass airspace disease within the lower lung [place] bilaterally. Pleural space: Unremarkable. No pleural effusion. No pneumothorax. Heart/Mediastinum: Borderline heart size Bones/joints: Unremarkable. IMPRESSION: Mild ground-glass airspace disease within the lower lung [place] bilaterally. Followup radiographs recommended after appropriate therapy. Thank you for allowing us to participate in the care of your patient. Dictated and Authenticated by: Al Doherty MD 08/02/2020 9:47 AM Central Time ([place] & [place]) - Re-Assessments/Exams Free Text/Narrative Re-Assessment/Exam: 08/02/20 CXR is improved when compared to study from 07/29/2020. Considered repeat CT for elevated D-dimer but patient has had two PE studies in the past 11 days; one on 07/23/2020 and another on 07/29/2020, both of which were unremarkable for evidence of PE. Discussed monitoring O2 about 4x per day and to titrate oxygen down as appropriated. Discussed appropriate oxygen saturations for COPD is 88-94 and how oxygen in the high 90s-100 can be lethal. Patient given Decadron 10mg IVP x1 - will treat with Decadron 6mg PO at home for seven days. Discussion with home health from [facility] agreed on visits daily at this time. Patient has an appointment to follow up with her PCP on Wednesday08/06/2020. Patient verbalized understanding and agreement with the plan of care. Departure - Departure Time of Disposition: 10:45 Disposition: Home, Self-Care 01 Condition: Good Clinical Impression: History of 2019 novel coronavirus disease (COVID-19), Elevated d-dimer, RON and COPD overlap syndrome COPD (chronic obstructive pulmonary disease) Qualifiers: COPD type: unspecified COPD Qualified Code(s): J44.9 - Chronic obstructive pulmonary disease, unspecified - Discharge Information *PRESCRIPTION DRUG MONITORING PROGRAM REVIEWED*: Not Applicable *COPY OF PRESCRIPTION DRUG MONITORING REPORT IN PATIENT VIKKI: Not Applicable Instructions: Chronic Obstructive Pulmonary Disease Exacerbation, [id number] Referrals: Lakia Louie NP [Primary Care Provider] - Forms: ED Department Discharge Additional Instructions: Rx: Dexamethasone 6mg 1.) Monitor your oxygen four times per day, not too often or you'll cause anxiety! 2.) Titrate your oxygen to maintain your oxygen saturations between 88-94% 3.) Keep you appointment with your primary care provider on Wednesday08/06/2020 Sepsis Event Note (ED) - Evaluation Sepsis Screening Result: No Definite Risk - Focused Exam Vital Signs: Vital Signs Temp Pulse Resp BP Pulse Ox 08/02/20 08:55 97 F 86 20 118/72 96
[2020-08-02] MEDS ORDERED: Dexamethasone 4 MG/ML SDV IVPUSH ONE (10:03)
== END 2020-08-02 11:04 | disposition home or self-care (01) ==
LOC: DL.ED 09:10
DX: J44.9 Chronic obstructive pulmonary disease, unspecified (principal); G47.33 Obstructive sleep apnea (adult) (pediatric); R79.1 Abnormal coagulation profile; I25.10 Atherosclerotic heart disease of native coronary artery without angina pectoris; E78.00 Pure hypercholesterolemia, unspecified; I10 Essential (primary) hypertension; I25.2 Old myocardial infarction; K21.9 Gastro-esophageal reflux disease without esophagitis; E11.40 Type 2 diabetes mellitus with diabetic neuropathy, unspecified; M19.90 Unspecified osteoarthritis, unspecified site; F41.9 Anxiety disorder, unspecified; F32.9 Major depressive disorder, single episode, unspecified; E66.9 Obesity, unspecified; Z87.891 Personal history of nicotine dependence; Z68.41 Body mass index [BMI] 40.0-44.9, adult; Z88.8 Allergy status to other drugs, medicaments and biological substances; Z86.19 Personal history of other infectious and parasitic diseases; Z88.5 Allergy status to narcotic agent; Z91.018 Allergy to other foods; Z79.82 Long term (current) use of aspirin; Z79.4 Long term (current) use of insulin; Z79.899 Other long term (current) drug therapy; Z86.73 Personal history of transient ischemic attack (TIA), and cerebral infarction without residual deficits
CPT/HCPCS: 36415; 71045; 80053; 83605; 83880; 84484; 85025; 85379; 86140; 93005; 96374; 99285-25; J1100

== ENCOUNTER 2020-08-26 10:45 | Emergency (ER) | payer MEDICAID ==
[2020-08-26] MEDS ORDERED: Sodium Chloride 0.9% 10 ML Syringe FLUSH PRN (11:38)
--- NOTE | 2020-08-26 11:38 | EDM.PDOC ---
ED HPI GENERAL MEDICAL PROBLEM - General Chief Complaint: Chest Pain Stated Complaint: CHEST PAINS, WEAK LEFTARM, SHAKY DIZZY Time Seen by Provider: 08/26/20 11:10 Source of Information: Reports: Patient, Old Records, RN, RN Notes Reviewed History Limitations: Reports: No Limitations - History of Present Illness INITIAL COMMENTS - FREE TEXT/NARRATIVE: Pt presents to ER by POV with c/o recurring chest pain, shortness of breath, nausea, and fatigue. Symptoms have been present since her COVID diagnosis 07/22/20. She has Hx of CAD, CVA x2, DM, and obesity. Pt claims she has been taking NTG which relieves her CP. Pt claims the episodes of CP are becoming more frequent and taking a second dose of NTG to get relief. 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 Currently her chest pain has resolved. 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: Reports: Oxygen Bilateral Chest Pain Score (Numeric/FACES): 7 - Related Data Allergies Allergy/AdvReac Type Severity Reaction Status Date / Time levonorgestrel Allergy Cannot Verified 08/26/20 12:11 Remember trazodone Allergy Swelling Verified 08/26/20 12:11 barbeque Allergy Other Uncoded 08/26/20 12:11 mint chocolate chip flavor Allergy Swelling Uncoded 08/26/20 12:11 seasonal Allergy Cannot Uncoded 08/26/20 12:11 Remember Home Meds: Home Meds Acetaminophen [Tylenol Extra Strength] 1,000 mg PO Q6H PRN 11/17/14 [History] EPINEPHrine [Epipen] 0.3 ml SUBCUT ASDIRECTED PRN 11/17/14 [History] Fluticasone Propionate [Flonase] 2 sprays NASBOTH DAILY 11/17/14 [History] Lactobacillus Acidophilus [Probiotic] 1 tab PO DAILY 11/17/14 [History] tiZANidine [Zanaflex] 4 mg PO Q8HR PRN 02/20/15 [History] DULoxetine [Cymbalta] 120 mg PO DAILY 08/01/15 [History] metFORMIN [Glucophage XR] 1,000 mg PO ASDIRECTED 12/15/15 [History] Ascorbic Acid [Vitamin C] 250 mg PO BID 08/31/18 [History] Ferrous Sulfate 325 mg PO BID 08/31/18 [History] Lisinopril 15 mg PO DAILY 08/31/18 [History] atenoloL [Atenolol] 25 mg PO DAILY 08/31/18 [History] Nitroglycerin 0.4 mg SL ASDIRECTED PRN 10/18/19 [History] Gabapentin [Neurontin] 600 mg PO TID 01/01/20 [History] Insulin Detemir [Levemir] 40 units INJECT BID 01/01/20 [History] Multivitamin with Minerals [Multiple Vitamin] 1 tab PO DAILY 01/01/20 [History] Albuterol Sulfate [Albuterol Sulfate Hfa] 2 puff INH Q4H PRN 04/26/20 [History] Aspirin [Aspirin EC] 325 mg PO DAILY 04/26/20 [History] Pravastatin [Pravachol] 40 mg PO BEDTIME 04/26/20 [History] buPROPion HCL [Bupropion Xl] 150 mg PO DAILY 04/26/20 [History] Ibuprofen 800 mg PO BID PRN 06/10/20 [History] Liraglutide [Victoza] 1.8 mg INJECT DAILY 06/10/20 [History] Pantoprazole Sodium [Protonix] 40 mg PO DAILY 06/10/20 [History] Magnesium Oxide 250 mg PO BIDM #6 tablet 07/30/20 [Rx] Past Medical History HEENT History: Reports: Impaired Vision Cardiovascular History: Reports: CAD, High Cholesterol, Hypertension, [place] Respiratory History: Reports: Asthma, COPD, Sleep Apnea Other Respiratory History: uses c-pap at home. 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 Musculoskeletal History: Reports: Arthritis, Back Pain, Chronic, Neck Pain, Chronic, Other (See Below) Other Musculoskeletal History: Neck and back Neurological History: Reports: CVA, Migraines, Neuropathy, Diabetic Psychiatric History: Reports: Anxiety, Depression, Panic Attack, Suicide Attempt Endocrine/Metabolic History: Reports: Diabetes, Type II, Obesity/BMI 30+ Hematologic History: Reports: Anemia Immunologic History: Reports: None Oncologic (Cancer) History: Reports: None Dermatologic History: Reports: None - Infectious Disease History Infectious Disease History: Reports: Chicken Pox, Measles, MRSA, Mumps - Past Surgical History Head Surgeries/Procedures: Reports: None HEENT Surgical History: Reports: None Other HEENT Surgeries/Procedures: Surgical repair for broken nose and jaw Cardiovascular Surgical History: Reports: None Respiratory Surgical History: Reports: None Other Respiratory Surgeries/Procedures: left lung biopsy. "as long as it doesn't get infected, it doesn't give me any problems" GI Surgical History: Reports: Appendectomy Other GI Surgeries/Procedures: Appy 2-3yrs ago Female Surgical History: Reports: D&C, Other (See Below) Other Female Surgeries/Procedures: 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 Neurological Surgical History: Reports: None Musculoskeletal Surgical History: Reports: None Social & Family History - Family History Family Medical History: No Pertinent Family History - Tobacco Use Tobacco Use Status *Q: Former Tobacco User Tobacco Use Within Last Twelve Months: Cigarettes - Caffeine Use Caffeine Use: Reports: Coffee Caffeine Use Comment: 2 cups coffee daily - Living Situation & Occupation Living situation: Reports: with Family Occupation: Unemployed ED ROS GENERAL - Review of Systems Review Of Systems: Comprehensive ROS is negative, except as noted in HPI. ED EXAM, GENERAL - Physical Exam Exam: See Below Exam Limited By: No Limitations General Appearance: Alert, No Apparent Distress, Obese Eye Exam: Bilateral Eye: Normal Inspection Throat/Mouth: Normal Inspection, Normal Voice, No Airway Compromise Head: Atraumatic, Normocephalic Neck: Normal Inspection Respiratory/Chest: No Respiratory Distress, Lungs Clear, No Accessory Muscle Use, Chest Non-Tender, Decreased Breath Sounds Cardiovascular: Regular Rate, Rhythm, No Edema GI/Abdominal: Normal Bowel Sounds, Soft, No Distention, Tender (Generalized ). No: Guarding, Rigid Extremities: Normal Inspection, Normal Range of Motion, Non-Tender, Normal Capillary Refill, No Pedal Edema Neurological: Alert, Oriented, No Motor/Sensory Deficits Psychiatric: Normal Mood Skin Exam: Warm, Dry #1 Interpretation EKG Date: 08/26/20 Time: 11:44 Rhythm: Other (SR) Rate (Beats/Min): 92 [place]: Normal P-Wave: Present QRS: Normal ST-T: Normal QT: Normal Comparison: No Change Course - Vital Signs Last Recorded V/S: Last Vital Signs Temp 97.9 F 08/26/20 12:05 Pulse Resp 17 08/26/20 12:05 BP 92/63 08/26/20 12:05 Pulse Ox 100 08/26/20 12:05 - Orders/Labs/Meds Orders: Active Orders 24 hr Category Date Time Status EKG 12 Lead [EKG Documentation Completion] [RC] STAT Care 08/26/20 11:39 Active Peripheral IV Care [RC] . DIRECTED Care 08/26/20 11:39 Active Sodium Chloride 0.9% [Saline Flush] Med 08/26/20 11:38 Active 10 ml FLUSH ASDIRECTED PRN Peripheral IV Insertion Adult [OM.PC] Stat Oth 08/26/20 11:39 Ordered Medication Orders Sodium Chloride (Saline Flush) 10 ml FLUSH ASDIRECTED PRN PRN Reason: Keep Vein Open Labs: Laboratory Tests 08/26/20 08/26/20 08/26/20 Range/Units 11:55 11:55 11:55 WBC 6.0 (5.0-10.0) 10^3/uL RBC 3.80 L (4.2-5.4) 10^6/uL Hgb 11.9 L (12.0-16.0) g/dL Hct 36.3 L (37.0-47.0) % MCV 95.5 D (80-100) fL MCH 31.3 (27.0-34.0) pg MCHC 32.8 L (33.0-35.0) g/dL Plt Count 265 (150-450) 10^3/uL Neut % (Auto) 64.7 (42.2-75.2) % Lymph % (Auto) 25.2 (20.5-50.1) % [place] % (Auto) 7.8 (2-8) % Eos % (Auto) 2.0 (1.0-3.0) % Baso % (Auto) 0.3 (0.0-1.0) % PT 10.6 (9.0-12.0) SEC INR 1.1 (0.9-1.2) APTT 23.7 (22.0-34.0) SEC D-Dimer, Quantitative 2770 H (0-400) ng/mL Sodium 141 (136-145) mmol/L Potassium 4.4 (3.5-5.1) mmol/L Chloride 102 (98-107) mmol/L Carbon Dioxide 24 (21-32) mmol/L Anion Gap 19.4 H (7-13) mEq/L BUN 21 H (7-18) mg/dL Creatinine 1.44 H (0.55-1.02) mg/dL Est Cr Clr Drug Dosing 36.97 mL/min Estimated GFR (MDRD) 39 BUN/Creatinine Ratio 14.6 (No establ ref range) Glucose 153 H (74-99) mg/dL Calcium 9.7 (8.5-10.1) mg/dL Total Bilirubin 0.3 (0.2-1.0) mg/dL AST 19 (15-37) U/L ALT 23 (14-59) U/L Alkaline Phosphatase 83 (46-116) U/L Troponin I < 0.017 (0.000-0.056) ng/mL B-Natriuretic Peptide < 5 (0-100) pg/ml Total Protein 8.0 (6.4-8.2) g/dL Albumin 3.4 (3.4-5.0) g/dL Globulin 4.6 Albumin/Globulin Ratio 0.7 Amylase 33 (25-115) U/L Lipase 134 (73-393) U/L Meds: Medications Generic Name Dose Route Start Last Admin Trade Name Freq PRN Reason Stop Dose Admin Sodium Chloride 10 ml 08/26/20 11:38 Saline Flush FLUSH ASDIRECTED PRN Keep Vein Open - Radiology Interpretation Free Text/Narrative:: XR Chest: no acute process per Rad. report. Departure - Departure Time of Disposition: 13:13 Disposition: DC/Tfer to Acute Hospital 02 Reason for Transfer *Q: Primary PCI Indicated Condition: Undetermined Clinical Impression: Recurrent chest pain, Angina pectoris without myocardial infarction, Elevated d-dimer Forms: ED Department Discharge, Interfacility Transfer EMTALA Sepsis Event Note (ED) - Focused Exam Vital Signs: Vital Signs Temp Resp BP Pulse Ox 08/26/20 12:05 97.9 F 17 92/63 100 - My Orders Last 24 Hours: My Active Orders 08/26/20 11:38 Sodium Chloride 0.9% [Saline Flush] 10 ml FLUSH ASDIRECTED PRN 08/26/20 11:39 EKG 12 Lead [EKG Documentation Completion] [RC] STAT Peripheral IV Care [RC] . DIRECTED Peripheral IV Insertion Adult [OM.PC] Stat - Assessment/Plan Last 24 Hours: My Active Orders 08/26/20 11:38 Sodium Chloride 0.9% [Saline Flush] 10 ml FLUSH ASDIRECTED PRN 08/26/20 11:39 EKG 12 Lead [EKG Documentation Completion] [RC] STAT Peripheral IV Care [RC] . DIRECTED Peripheral IV Insertion Adult [OM.PC] Stat
[2020-08-26 12:06] VITALS: BP 92/63
--- NOTE | 2020-08-26 12:11 | CR ---
EXAMINATION: Chest 1V Frontal SEX: Female AGE: 49 years CLINICAL HISTORY: 49-year-old female complaining of chest pain. INTERPRETATION: No acute new cardiopulmonary abnormality since comparison 02 August 2020 film. 1. Normal cardiac silhouette. External court recording monitor leads and oxygen cannula. 2. No pulmonary vascular congestion, cephalization of flow, alveolar edema or dependent pleural fluid accumulation (effusion). 3. No new lung mass, hilar lymphadenopathy or focal lobar consolidation (infiltrate/atelectasis). 4. No peripheral "groundglass" interstitial lung densities. 5. No pneumothorax or pneumomediastinum. Midline tracheobronchial airway unremarkable
[2020-08-26 12:19] LABS: PTT,PARTIAL THROMBOPLSTIN TIME 23.7 SEC (22.0-34.0)
[2020-08-26 12:24] LABS: ANION GAP 19.4 mEq/L (7-13); CHLORIDE,CL 102 mmol/L (98-107); SODIUM,NA 141 mmol/L (136-145)
== END 2020-08-26 14:43 ==
LOC: DL.ED 10:45
DX: I25.119 Atherosclerotic heart disease of native coronary artery with unspecified angina pectoris (principal); R79.1 Abnormal coagulation profile; E78.00 Pure hypercholesterolemia, unspecified; I10 Essential (primary) hypertension; J44.9 Chronic obstructive pulmonary disease, unspecified; K21.9 Gastro-esophageal reflux disease without esophagitis; M19.90 Unspecified osteoarthritis, unspecified site; F41.9 Anxiety disorder, unspecified; F32.9 Major depressive disorder, single episode, unspecified; E11.40 Type 2 diabetes mellitus with diabetic neuropathy, unspecified; E66.9 Obesity, unspecified; Z68.38 Body mass index [BMI] 38.0-38.9, adult; Z86.16 Personal history of COVID-19; Z87.891 Personal history of nicotine dependence; Z88.8 Allergy status to other drugs, medicaments and biological substances; Z88.5 Allergy status to narcotic agent; Z91.018 Allergy to other foods; Z91.048 Other nonmedicinal substance allergy status; Z79.899 Other long term (current) drug therapy; Z79.4 Long term (current) use of insulin
CPT/HCPCS: 36415; 71045; 80053; 82150; 82962; 83690; 83880; 84484; 85025; 85379; 85610; 85730; 93005; 93010; 99284; 99285-25

== ENCOUNTER 2021-03-02 20:14 | Emergency (ER) | payer MEDICAID ==
[2021-03-02 20:34] VITALS: BP 141/74; PULSE 93
--- NOTE | 2021-03-02 20:45 | EDM.PDOC ---
ED HPI GENERAL MEDICAL PROBLEM - General Chief Complaint: Wound Recheck Stated Complaint: DIABETIC SORES ON FEET Time Seen by Provider: 03/02/21 20:39 Source of Information: Reports: Patient, RN History Limitations: Reports: No Limitations - History of Present Illness INITIAL COMMENTS - FREE TEXT/NARRATIVE: ED with c/o bilateral foot pain since wednesday, concern for blood clot, noted bruise to left heel this stephy. Feet Pain Score (Numeric/FACES): 9 - Related Data Allergies Allergy/AdvReac Type Severity Reaction Status Date / Time levonorgestrel Allergy Cannot Verified 03/02/21 20:37 Remember trazodone Allergy Swelling Verified 03/02/21 20:37 barbeque Allergy Other Uncoded 03/02/21 20:37 mint chocolate chip flavor Allergy Swelling Uncoded 03/02/21 20:37 seasonal Allergy Cannot Uncoded 03/02/21 20:37 Remember Home Meds: Home Meds Acetaminophen [Tylenol Extra Strength] 1,000 mg PO Q6H PRN 11/17/14 [History] EPINEPHrine [Epipen] 0.3 ml SUBCUT ASDIRECTED PRN 11/17/14 [History] Fluticasone Propionate [Flonase] 2 sprays NASBOTH DAILY 11/17/14 [History] Lactobacillus Acidophilus [Probiotic] 1 tab PO DAILY 11/17/14 [History] tiZANidine [Zanaflex] 4 mg PO Q8HR PRN 02/20/15 [History] DULoxetine [Cymbalta] 120 mg PO DAILY 08/01/15 [History] metFORMIN [Glucophage XR] 1,000 mg PO ASDIRECTED 12/15/15 [History] Ascorbic Acid [Vitamin C] 250 mg PO BID 08/31/18 [History] Ferrous Sulfate 325 mg PO BID 08/31/18 [History] Lisinopril 15 mg PO DAILY 08/31/18 [History] atenoloL [Atenolol] 25 mg PO DAILY 08/31/18 [History] Nitroglycerin 0.4 mg SL ASDIRECTED PRN 10/18/19 [History] Gabapentin [Neurontin] 600 mg PO TID 01/01/20 [History] Insulin Detemir [Levemir] 40 units INJECT BID 01/01/20 [History] Multivitamin with Minerals [Multiple Vitamin] 1 tab PO DAILY 01/01/20 [History] Albuterol Sulfate [Albuterol Sulfate Hfa] 2 puff INH Q4H PRN 04/26/20 [History] Aspirin [Aspirin EC] 325 mg PO DAILY 04/26/20 [History] Pravastatin [Pravachol] 40 mg PO BEDTIME 04/26/20 [History] buPROPion HCL [Bupropion Xl] 150 mg PO DAILY 04/26/20 [History] Ibuprofen 800 mg PO BID PRN 06/10/20 [History] Liraglutide [Victoza] 1.8 mg INJECT DAILY 06/10/20 [History] Pantoprazole Sodium [Protonix] 40 mg PO DAILY 06/10/20 [History] Magnesium Oxide 250 mg PO BIDM #6 tablet 07/30/20 [Rx] Past Medical History HEENT History: Reports: Impaired Vision Cardiovascular History: Reports: CAD, High Cholesterol, Hypertension, [place] Respiratory History: Reports: Asthma, COPD, Sleep Apnea Other Respiratory History: uses c-pap at home. 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 Musculoskeletal History: Reports: Arthritis, Back Pain, Chronic, Neck Pain, Chronic, Other (See Below) Other Musculoskeletal History: Neck and back Neurological History: Reports: CVA, Migraines, Neuropathy, Diabetic Psychiatric History: Reports: Anxiety, Depression, Panic Attack, Suicide Attempt Endocrine/Metabolic History: Reports: Diabetes, Type II, Obesity/BMI 30+ Hematologic History: Reports: Anemia Immunologic History: Reports: None Oncologic (Cancer) History: Reports: None Dermatologic History: Reports: None - Infectious Disease History Infectious Disease History: Reports: Chicken Pox, Measles, MRSA, Mumps - Past Surgical History Head Surgeries/Procedures: Reports: None HEENT Surgical History: Reports: None Other HEENT Surgeries/Procedures: Surgical repair for broken nose and jaw Cardiovascular Surgical History: Reports: None Respiratory Surgical History: Reports: None Other Respiratory Surgeries/Procedures: left lung biopsy. "as long as it doesn't get infected, it doesn't give me any problems" GI Surgical History: Reports: Appendectomy Other GI Surgeries/Procedures: Appy 2-3yrs ago Female Surgical History: Reports: D&C, Other (See Below) Other Female Surgeries/Procedures: 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 Neurological Surgical History: Reports: None Musculoskeletal Surgical History: Reports: None Social & Family History - Family History Family Medical History: No Pertinent Family History - Tobacco Use Tobacco Use Status *Q: Never Tobacco User - Caffeine Use Caffeine Use: Reports: Coffee, Tea Caffeine Use Comment: 2 cups coffee daily - Recreational Drug Use Recreational Drug Use: No - Living Situation & Occupation Living situation: Reports: with Family Occupation: Unemployed ED ROS GENERAL - Review of Systems Review Of Systems: Comprehensive ROS is negative, except as noted in HPI. ED EXAM, GENERAL - Physical Exam Exam: See Below Exam Limited By: No Limitations General Appearance: Alert, Mild Distress Eye Exam: Bilateral Eye: PERRL Ears: Normal External Exam, Hearing Grossly Normal Nose: Normal Inspection Throat/Mouth: Normal Inspection Head: Atraumatic Neck: Normal Inspection Respiratory/Chest: No Respiratory Distress, Lungs Clear, Normal Breath Sounds Cardiovascular: Normal Peripheral Pulses, Regular Rate, Rhythm GI/Abdominal: Normal Bowel Sounds, Soft Back Exam: Normal Inspection Extremities: Normal Range of Motion, Other (bilateral feet tender with palpation, dry punctate wounds left 2nd, 3rd toes DIP no redness to toes. slight dependent rubur, left heel plantar surface dime size bruise). No: Pedal Edema, Jon's Sign, Limited Range of Motion Psychiatric: Normal Affect, Normal Mood Course - Vital Signs Last Recorded V/S: Last Vital Signs Temp 98.0 F 03/02/21 20:32 Pulse 93 03/02/21 20:32 Resp 20 03/02/21 20:32 BP 141/74 H 03/02/21 20:32 Pulse Ox 100 03/02/21 20:32 - Orders/Labs/Meds Labs: Laboratory Tests 03/02/21 03/02/21 03/02/21 Range/Units 20:55 20:55 20:55 WBC 8.1 (5.0-10.0) 10^3/uL RBC 3.73 L (4.2-5.4) 10^6/uL Hgb 11.0 L (12.0-16.0) g/dL Hct 34.8 L (37.0-47.0) % MCV 93.3 (80-100) fL MCH 29.5 (27.0-34.0) pg MCHC 31.6 L (33.0-35.0) g/dL Plt Count 301 (150-450) 10^3/uL Neut % (Auto) 59.1 (42.2-75.2) % Lymph % (Auto) 32.2 (20.5-50.1) % [place] % (Auto) 6.2 (2-8) % Eos % (Auto) 2.1 (1.0-3.0) % Baso % (Auto) 0.4 (0.0-1.0) % PT 10.8 (9.0-12.0) SEC INR 1.1 (0.9-1.2) D-Dimer, Quantitative 966 H (0-400) ng/mL Sodium 142 (136-145) mmol/L Potassium 3.7 (3.5-5.1) mmol/L Chloride 106 (98-107) mmol/L Carbon Dioxide 24 (21-32) mmol/L Anion Gap 15.7 H (7-13) mEq/L BUN 16 (7-18) mg/dL Creatinine 0.87 (0.55-1.02) mg/dL Est Cr Clr Drug Dosing 60.50 mL/min Estimated GFR (MDRD) > 60 BUN/Creatinine Ratio 18.4 (No establ ref range) Glucose 140 H (70-99) mg/dL Lactic Acid (0.4-2.0) mmol/L Calcium 8.8 (8.5-10.1) mg/dL Total Bilirubin 0.2 (0.2-1.0) mg/dL AST 20 (15-37) U/L ALT 25 (14-59) U/L Alkaline Phosphatase 91 (46-116) U/L Total Protein 7.2 (6.4-8.2) g/dL Albumin 3.2 L (3.4-5.0) g/dL Globulin 4.0 Albumin/Globulin Ratio 0.80 /07/13 Range/Units 20:55 WBC (5.0-10.0) 10^3/uL RBC (4.2-5.4) 10^6/uL Hgb (12.0-16.0) g/dL Hct (37.0-47.0) % MCV (80-100) fL MCH (27.0-34.0) pg MCHC (33.0-35.0) g/dL Plt Count (150-450) 10^3/uL Neut % (Auto) (42.2-75.2) % Lymph % (Auto) (20.5-50.1) % [place] % (Auto) (2-8) % Eos % (Auto) (1.0-3.0) % Baso % (Auto) (0.0-1.0) % PT (9.0-12.0) SEC INR (0.9-1.2) D-Dimer, Quantitative (0-400) ng/mL Sodium (136-145) mmol/L Potassium (3.5-5.1) mmol/L Chloride (98-107) mmol/L Carbon Dioxide (21-32) mmol/L Anion Gap (7-13) mEq/L BUN (7-18) mg/dL Creatinine (0.55-1.02) mg/dL Est Cr Clr Drug Dosing mL/min Estimated GFR (MDRD) BUN/Creatinine Ratio (No establ ref range) Glucose (70-99) mg/dL Lactic Acid 1.2 (0.4-2.0) mmol/L Calcium (8.5-10.1) mg/dL Total Bilirubin (0.2-1.0) mg/dL AST (15-37) U/L ALT (14-59) U/L Alkaline Phosphatase (46-116) U/L Total Protein (6.4-8.2) g/dL Albumin (3.4-5.0) g/dL Globulin Albumin/Globulin Ratio Meds: Medications Discontinued Medications Generic Name Dose Route Start Last Admin Trade Name Freq PRN Reason Stop Dose Admin Enoxaparin Sodium 40 mg 03/02/21 21:49 03/02/21 22:27 Enoxaparin 40 Mg/0.4 Ml Syringe SUBCUT 03/02/21 21:50 40 mg ONETIME ONE Administration - Re-Assessments/Exams Free Text/Narrative Re-Assessment/Exam: 03/03/21 03:53 Slight elevation in d-dimer, do not feel clinically significant as multiple prior elevations without documentation of DVT. Prior COVID without mention of PE. Not on anti-coag other than low dose aspirin. No US available tonight. Give one time dose Lovenox and patient may follow with PCP in am Departure - Departure Time of Disposition: 21:52 Disposition: Home, Self-Care 01 Condition: Good Clinical Impression: Foot pain, bilateral - Discharge Information *PRESCRIPTION DRUG MONITORING PROGRAM REVIEWED*: No *COPY OF PRESCRIPTION DRUG MONITORING REPORT IN PATIENT VIKKI: No Instructions: Diabetic Neuropathy, Foot Pain Forms: ED Department Discharge Additional Instructions: clinic follow up in am continue home medications diabetic shoes monitor blood sugars Sepsis Event Note (ED) - Evaluation Sepsis Screening Result: No Definite Risk - Focused Exam Vital Signs: Vital Signs Temp Pulse Resp BP Pulse Ox 03/02/21 20:32 98.0 F 93 20 141/74 H 100
[2021-03-02 21:25] LABS: ANION GAP 15.7 mEq/L (7-13); CHLORIDE,CL 106 mmol/L (98-107); SODIUM,NA 142 mmol/L (136-145)
[2021-03-02] MEDS ORDERED: Enoxaparin 40 MG/0.4 ML Syringe SUBCUT ONE (21:49)
== END 2021-03-02 22:38 | disposition home or self-care (01) ==
LOC: DL.ED 20:14
DX: M79.671 Pain in right foot (principal); M79.672 Pain in left foot; I25.10 Atherosclerotic heart disease of native coronary artery without angina pectoris; E78.00 Pure hypercholesterolemia, unspecified; I10 Essential (primary) hypertension; I25.2 Old myocardial infarction; J44.9 Chronic obstructive pulmonary disease, unspecified; K21.9 Gastro-esophageal reflux disease without esophagitis; E11.40 Type 2 diabetes mellitus with diabetic neuropathy, unspecified; E66.9 Obesity, unspecified; Z68.37 Body mass index [BMI] 37.0-37.9, adult; Z79.4 Long term (current) use of insulin; Z79.82 Long term (current) use of aspirin; Z79.899 Other long term (current) drug therapy; Z91.018 Allergy to other foods; Z91.09 Other allergy status, other than to drugs and biological substances; Z88.5 Allergy status to narcotic agent; Z88.8 Allergy status to other drugs, medicaments and biological substances
CPT/HCPCS: 36415; 80053; 83605; 85025; 85379; 85610; 96372; 99283; J1650

== ENCOUNTER 2021-03-04 11:06 | Emergency (ER) | payer MEDICAID ==
[2021-03-04 11:31] VITALS: PULSE 86
--- NOTE | 2021-03-04 11:50 | EDM.PDOC ---
ED HPI GENERAL MEDICAL PROBLEM - General Stated Complaint: [facility] BLOOD CLOTS Time Seen by Provider: 03/04/21 11:35 Source of Information: Reports: Patient, Old Records, Provider ([facility] provider), RN, RN Notes Reviewed History Limitations: Reports: No Limitations - History of Present Illness INITIAL COMMENTS - FREE TEXT/NARRATIVE: Josy is a 50 y/o female with history of COPD, DM II, and COVID pneumonia who presents to the ED via personal vehicle with complaints of bilateral foot pain. The patient reports her pain began spontaneously on Wednesday and have progressed in severity since that time. She denies injury to the extremities. The patient was examined in this facility two nights ago due to concerns about blood clots as the source of pain. Her d-dimer was elevated at 996, but not US was available so she was started on Lovenox and instructed to follow up with her PCP. She states she received a bilateral foot x-ray yesterday and a venous doppler US today; she was then instructed to follow up in the ER as the pain in her feet is causing her difficulty with ambulation. She has taken one dose of gabapentin, ibuprofen, and acetaminophen for this pain at approximately 0200 th is morning. She denies loss of motor/sensory function, shortness of breath, palpitations, or chest pain. Bilateral Lower Foot Pain Score (Numeric/FACES): 9 - Related Data Allergies Allergy/AdvReac Type Severity Reaction Status Date / Time levonorgestrel Allergy Cannot Verified 03/04/21 11:52 Remember trazodone Allergy Swelling Verified 03/04/21 11:52 barbeque Allergy Other Uncoded 03/02/21 20:37 mint chocolate chip flavor Allergy Swelling Uncoded 03/02/21 20:37 seasonal Allergy Cannot Uncoded 03/02/21 20:37 Remember Home Meds: Home Meds Acetaminophen [Tylenol Extra Strength] 1,000 mg PO Q6H PRN 11/17/14 [History] EPINEPHrine [Epipen] 0.3 ml SUBCUT ASDIRECTED PRN 11/17/14 [History] Fluticasone Propionate [Flonase] 2 sprays NASBOTH DAILY 11/17/14 [History] Lactobacillus Acidophilus [Probiotic] 1 tab PO DAILY 11/17/14 [History] tiZANidine [Zanaflex] 4 mg PO Q8HR PRN 02/20/15 [History] DULoxetine [Cymbalta] 120 mg PO DAILY 08/01/15 [History] metFORMIN [Glucophage XR] 1,000 mg PO ASDIRECTED 12/15/15 [History] Ascorbic Acid [Vitamin C] 250 mg PO BID 08/31/18 [History] Ferrous Sulfate 325 mg PO BID 08/31/18 [History] Lisinopril 15 mg PO DAILY 08/31/18 [History] atenoloL [Atenolol] 25 mg PO DAILY 08/31/18 [History] Nitroglycerin 0.4 mg SL ASDIRECTED PRN 10/18/19 [History] Gabapentin [Neurontin] 600 mg PO TID 01/01/20 [History] Insulin Detemir [Levemir] 40 units INJECT BID 01/01/20 [History] Multivitamin with Minerals [Multiple Vitamin] 1 tab PO DAILY 01/01/20 [History] Albuterol Sulfate [Albuterol Sulfate Hfa] 2 puff INH Q4H PRN 04/26/20 [History] Aspirin [Aspirin EC] 325 mg PO DAILY 04/26/20 [History] Pravastatin [Pravachol] 40 mg PO BEDTIME 04/26/20 [History] buPROPion HCL [Bupropion Xl] 150 mg PO DAILY 04/26/20 [History] Ibuprofen 800 mg PO BID PRN 06/10/20 [History] Liraglutide [Victoza] 1.8 mg INJECT DAILY 06/10/20 [History] Pantoprazole Sodium [Protonix] 40 mg PO DAILY 06/10/20 [History] Magnesium Oxide 250 mg PO BIDM #6 tablet 07/30/20 [Rx] Past Medical History HEENT History: Reports: Impaired Vision Cardiovascular History: Reports: CAD, High Cholesterol, Hypertension, [place] Respiratory History: Reports: Asthma, COPD, Sleep Apnea Other Respiratory History: uses c-pap at home. 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 Musculoskeletal History: Reports: Arthritis, Back Pain, Chronic, Neck Pain, Chronic, Other (See Below) Other Musculoskeletal History: Neck and back Neurological History: Reports: CVA, Migraines, Neuropathy, Diabetic Psychiatric History: Reports: Anxiety, Depression, Panic Attack, Suicide Attempt Endocrine/Metabolic History: Reports: Diabetes, Type II, Obesity/BMI 30+ Hematologic History: Reports: Anemia Immunologic History: Reports: None Oncologic (Cancer) History: Reports: None Dermatologic History: Reports: None - Infectious Disease History Infectious Disease History: Reports: Chicken Pox, Measles, MRSA, Mumps - Past Surgical History Head Surgeries/Procedures: Reports: None HEENT Surgical History: Reports: None Other HEENT Surgeries/Procedures: Surgical repair for broken nose and jaw Cardiovascular Surgical History: Reports: None Respiratory Surgical History: Reports: None Other Respiratory Surgeries/Procedures: left lung biopsy. "as long as it doesn't get infected, it doesn't give me any problems" GI Surgical History: Reports: Appendectomy Other GI Surgeries/Procedures: Appy 2-3yrs ago Female Surgical History: Reports: D&C, Other (See Below) Other Female Surgeries/Procedures: 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 Neurological Surgical History: Reports: None Musculoskeletal Surgical History: Reports: None Social & Family History - Family History Family Medical History: No Pertinent Family History - Caffeine Use Caffeine Use: Reports: Coffee, Tea Caffeine Use Comment: 2 cups coffee daily - Living Situation & Occupation Living situation: Reports: with Family Occupation: Unemployed ED ROS GENERAL - Review of Systems Review Of Systems: Comprehensive ROS is negative, except as noted in HPI. ED EXAM, GENERAL - Physical Exam Exam: See Below Exam Limited By: No Limitations General Appearance: Alert, No Apparent Distress Eye Exam: Bilateral Eye: EOMI, Normal Inspection, PERRL (3mm) Ears: Normal External Exam, Hearing Grossly Normal Nose: Normal Inspection, Normal Mucosa, No Blood Throat/Mouth: Normal Inspection, Normal Oropharynx, Normal Voice, No Airway Compromise Head: Atraumatic, Normocephalic Neck: Normal Inspection, Supple, Non-Tender, Full Range of Motion Respiratory/Chest: No Respiratory Distress, Lungs Clear, Normal Breath Sounds, No Accessory Muscle Use, Chest Non-Tender. No: Crackles, Rales, Rhonchi, Wheezing, Stridor, Pleural Rub Cardiovascular: Normal Peripheral Pulses, Regular Rate, Rhythm, No Edema, No Gallop, No JVD, No Murmur, No Rub Peripheral Pulses: 1+: Posterior Tibial (L), Posterior Tibial (R), 2+: Radial (L), Radial (R), Dorsalis Pedis (L), Dorsalis Pedis (R) GI/Abdominal: Normal Bowel Sounds, Non-Tender, No Distention, No Abnormal Bruit, No Mass, Pelvis Stable (Female) Exam: Deferred Rectal (Female) Exam: Deferred Back Exam: Normal Inspection, Full Range of Motion Extremities: Normal Capillary Refill, Pedal Edema (Trace to posterior plantar foot), Leg Pain (To bilateral posterior plantar foot that radiates into calf; Worse with ambulation), Limited Range of Motion, Redness (Mild to bilateral posterior plantar aspect of foot). No: Joint Swelling, Increased Warmth, Mottled, Pallor Neurological: Alert, Oriented, CN II-XII Intact, Normal Cognition, No Motor/Sensory Deficits, Abnormal Gait (Pain in bilateral poterior plantar foot with ambulation) Psychiatric: Normal Affect, Normal Mood Skin Exam: Warm, Dry, Intact, No Rash, Erythema (Mild to bilateral posterior pl adam aspect of foot). No: Cool, Cyanosis, Ecchymosis, Jaundice, Mottled, Pallor, Petechiae Course - Vital Signs Last Recorded V/S: Last Vital Signs Temp 97.9 F 03/04/21 11:30 Pulse 86 03/04/21 11:30 Resp 20 03/04/21 11:30 BP 115/72 03/04/21 11:57 Pulse Ox 98 03/04/21 11:30 - Orders/Labs/Meds Meds: Medications Discontinued Medications Generic Name Dose Route Start Last Admin Trade Name Joshuaq PRN Reason Stop Dose Admin Acetaminophen 1,000 mg 03/04/21 13:15 03/04/21 13:20 Acetaminophen 500 Mg Tab PO 03/04/21 13:16 1,000 mg ONETIME ONE Administration Tramadol HCl 50 mg 03/04/21 13:03 03/04/21 13:21 Tramadol 50 Mg Tab PO 03/04/21 13:04 Not Given ONETIME ONE - Re-Assessments/Exams Free Text/Narrative Re-Assessment/Exam: 03/04/21 Patient records obtained from [facility]. No evidence of DVT bilaterally, via US Doppler. Bilateral foot Xray obtained. Findings of examination and imaging reviewed with patient. Patient instructed to follow up with podiatry for ongoing management of bilateral bone spurs. Discussed supportive cares as well as red flag signs and symptoms which would warrant reevaluation reviewed. Patient verbalized understanding and agreement with the plan of care. Departure - Departure Time of Disposition: 14:25 Disposition: Home, Self-Care 01 Condition: Good Clinical Impression: Bone spur of left foot, Bone spur of right foot - Discharge Information *PRESCRIPTION DRUG MONITORING PROGRAM REVIEWED*: Not Applicable *COPY OF PRESCRIPTION DRUG MONITORING REPORT IN PATIENT VIKKI: Not Applicable Forms: ED Department Discharge Additional Instructions: 1.) Follow up with podiatry regarding today's visit. Dr. Delano Rose's office number is: and request a [facility] appointment. 2.) Continue with previously prescribed gabapentin. 3.) You may take ibuprofen (Advil/Motrin) 400mg every six hours, as pain and swelling persists. You may also take acetaminophen (Tylenol) 650mg every six hours, as pain persists. You may stagger these medications so you are receiving a dose every three hours. Sepsis Event Note (ED) - Evaluation Sepsis Screening Result: No Definite Risk - Focused Exam Vital Signs: Vital Signs Temp Pulse Resp BP Pulse Ox 03/04/21 11:57 115/72 03/04/21 11:30 97.9 F 86 20 138/110 H 98
[2021-03-04 11:57] VITALS: BP 115/72
[2021-03-04] MEDS ORDERED: traMADol 50 MG Tab PO ONE (13:03)
[2021-03-04] MEDS ORDERED: Acetaminophen 500 MG Tab PO ONE (13:15)
--- NOTE | 2021-03-04 14:06 | CR ---
EXAMINATION: Foot Comp Min 3V Lt SEX: Female AGE: 50 years CLINICAL HISTORY: 50-year-old female bilateral posterior plantar foot pain while walkingg. INTERPRETATION: Heel spurs.
--- NOTE | 2021-03-04 14:08 | CR ---
EXAMINATION: Foot Comp Min 3V Rt SEX: Female AGE: 50 years CLINICAL HISTORY: 50-year-old female with posterior, plantar foot pain bilaterally (while walking). Interpretation: 1. Pes cavus and hammertoe deformities both feet. Atavistic first cuneiform. 2. *Small HEEL SPURS at the insertion plantar aponeurosis base of the os calcis, bilaterally (L>R). Incidentally noted less prominent heel spurs at the insertion of Achilles tendon posteriorly os calcis. 3. Homogeneous normal bone mineral density for age and gender. Early arthritic changes first metatarsophalangeal joints. 4. No pathologic skeletal lesion. 5. No foreign bodies or inflammatory periostitis. (note: vascular calcifications in the soft tissues. Diabetic?) 6. No sign of fracture or dislocation either foot.
== END 2021-03-04 14:34 | disposition home or self-care (01) ==
LOC: DL.ED 11:06
DX: M77.32 Calcaneal spur, left foot (principal); M77.31 Calcaneal spur, right foot; I25.10 Atherosclerotic heart disease of native coronary artery without angina pectoris; E78.00 Pure hypercholesterolemia, unspecified; I10 Essential (primary) hypertension; I25.2 Old myocardial infarction; J44.9 Chronic obstructive pulmonary disease, unspecified; K21.9 Gastro-esophageal reflux disease without esophagitis; M19.90 Unspecified osteoarthritis, unspecified site; E11.9 Type 2 diabetes mellitus without complications; E66.9 Obesity, unspecified; Z86.16 Personal history of COVID-19; Z88.8 Allergy status to other drugs, medicaments and biological substances; Z91.018 Allergy to other foods; Z91.048 Other nonmedicinal substance allergy status; Z79.4 Long term (current) use of insulin; Z79.82 Long term (current) use of aspirin; Z79.899 Other long term (current) drug therapy
CPT/HCPCS: 73630-LT; 73630-RT; 99283-25; A9270-GY

== ENCOUNTER 2022-08-11 12:40 | Emergency (ER) | payer MEDICAID, OTHER ==
[2022-08-11 13:43] LABS: CORONAVIRUS COVID-19 NAA NEGATIVE (NEGATIVE); RESPIRATORY SYNCYTIAL VIR NAA NEGATIVE (NEGATIVE)
[2022-08-11 13:56] VITALS: BP 156/102; PULSE 93
== END 2022-08-11 14:48 | disposition home or self-care (01) ==
LOC: DL.ED 12:40
DX: J06.9 Acute upper respiratory infection, unspecified (principal); B02.9 Zoster without complications; I25.10 Atherosclerotic heart disease of native coronary artery without angina pectoris; I10 Essential (primary) hypertension; I25.2 Old myocardial infarction; J44.9 Chronic obstructive pulmonary disease, unspecified; K21.9 Gastro-esophageal reflux disease without esophagitis; M19.90 Unspecified osteoarthritis, unspecified site; E11.9 Type 2 diabetes mellitus without complications; E66.9 Obesity, unspecified; Z68.36 Body mass index [BMI] 36.0-36.9, adult; Z88.8 Allergy status to other drugs, medicaments and biological substances; Z88.5 Allergy status to narcotic agent; Z91.018 Allergy to other foods; Z91.048 Other nonmedicinal substance allergy status; Z79.4 Long term (current) use of insulin; Z79.899 Other long term (current) drug therapy; Z79.82 Long term (current) use of aspirin; Z20.822 Contact with and (suspected) exposure to COVID-19
CPT/HCPCS: 0241U; 87081; 87430; 99283

== ENCOUNTER 2022-09-28 09:39 | Emergency (ER) | payer MEDICAID ==
[2022-09-28 09:59] VITALS: BP 135/90; PULSE 93
[2022-09-28 10:50] LABS: ANION GAP 13.4 mEq/L (7-13)
== END 2022-09-28 11:20 | disposition home or self-care (01) ==
LOC: DL.ED 09:39
DX: S31.801A Laceration without foreign body of unspecified buttock, initial encounter (principal); J02.9 Acute pharyngitis, unspecified; R19.7 Diarrhea, unspecified; E78.00 Pure hypercholesterolemia, unspecified; I25.10 Atherosclerotic heart disease of native coronary artery without angina pectoris; I25.2 Old myocardial infarction; J45.909 Unspecified asthma, uncomplicated; J44.9 Chronic obstructive pulmonary disease, unspecified; E11.40 Type 2 diabetes mellitus with diabetic neuropathy, unspecified; E66.9 Obesity, unspecified; Z68.36 Body mass index [BMI] 36.0-36.9, adult; Z91.018 Allergy to other foods; Z88.8 Allergy status to other drugs, medicaments and biological substances; Z91.09 Other allergy status, other than to drugs and biological substances; Z79.899 Other long term (current) drug therapy; Z79.82 Long term (current) use of aspirin; Z79.84 Long term (current) use of oral hypoglycemic drugs; Z87.891 Personal history of nicotine dependence; X58.XXXA Exposure to other specified factors, initial encounter
CPT/HCPCS: 36415; 80053; 85025; 87081; 87430; 99283; 99284

== ENCOUNTER 2022-11-30 07:02 | Emergency (ER) | payer MEDICAID ==
[2022-11-30 07:10] LABS: PTT,PARTIAL THROMBOPLSTIN TIME 24.7 SEC (22.0-34.0)
[2022-11-30 07:21] LABS: ANION GAP 12.8 mEq/L (7-13); CHLORIDE,CL 107 mmol/L (98-107); SODIUM,NA 142 mmol/L (136-145)
[2022-11-30 07:30] LABS: ESTIMATED GFR 58 mL/min (>=60)
[2022-11-30] MEDS ORDERED: Magnesium Sulfate/Water 2 GM in Premix Bag 1 BAG IV ONE ×2 (07:41→07:42)
[2022-11-30] MEDS ORDERED: NS with KCl 40mEq 1,000 ML IV SCH (07:45)
[2022-11-30 08:04] LABS: AMPHETAMINES,URINE NEGATIVE (NEGATIVE); BARBITURATES,URINE NEGATIVE (NEGATIVE); BENZODIAZEPINE,URINE NEGATIVE (NEGATIVE); MDMA (ECSTASY), URINE NEGATIVE (NEGATIVE); METHADONE,URINE NEGATIVE (NEGATIVE); METHAMPHETAMINES,URINE NEGATIVE (NEGATIVE); OPIATES,URINE NEGATIVE (NEGATIVE); OXYCODONE,URINE NEGATIVE (NEGATIVE); PHENCYCLIDINE,URINE NEGATIVE (NEGATIVE); TCA,URINE NEGATIVE (NEGATIVE)
[2022-11-30 12:11] VITALS: BP 128/85; PULSE 72
== END 2022-11-30 12:04 | disposition home or self-care (01) ==
LOC: DL.ED 07:02
DX: E83.42 Hypomagnesemia (principal); R25.2 Cramp and spasm; G43.009 Migraine without aura, not intractable, without status migrainosus; I25.10 Atherosclerotic heart disease of native coronary artery without angina pectoris; E78.00 Pure hypercholesterolemia, unspecified; I10 Essential (primary) hypertension; I25.2 Old myocardial infarction; J44.9 Chronic obstructive pulmonary disease, unspecified; K21.9 Gastro-esophageal reflux disease without esophagitis; M19.90 Unspecified osteoarthritis, unspecified site; E11.40 Type 2 diabetes mellitus with diabetic neuropathy, unspecified; E66.9 Obesity, unspecified; Z88.5 Allergy status to narcotic agent; Z88.8 Allergy status to other drugs, medicaments and biological substances; Z91.018 Allergy to other foods; Z91.09 Other allergy status, other than to drugs and biological substances; Z79.4 Long term (current) use of insulin; Z79.82 Long term (current) use of aspirin; Z79.899 Other long term (current) drug therapy; Z99.81 Dependence on supplemental oxygen
CPT/HCPCS: 36415; 70450; 72125; 80053; 80305-QW; 80307; 81003; 83735; 84443; 84484; 85025; 85379; 85610; 85730; 86140; 93005; 93010; 96361; 96365; 96366; 99284; 99285-25; J3475; J3480

== ENCOUNTER 2023-02-19 19:00 | Emergency (ER) | payer MEDICAID ==
[~2023-02-19 19:00] MED LIST: Sodium Chloride 0.9% 10 ML Syringe FLUSH PRN
[2023-02-19 19:10] LABS: BASOPHILS PERCENT AUTO 0.5 % (0.0-1.0); EOSINOPHILS PERCENT AUTO 1.8 % (1.0-3.0); HEMATOCRIT 36.9 % (37.0-47.0); HEMOGLOBIN 12.7 g/dL (12.0-16.0); LYMPHOCYTES PERCENT AUTO 36.6 % (20.5-50.1); MEAN CORPUSCULAR HEMOGLOBIN 33.8 pg (27.0-34.0); MEAN CORPUSCULAR HGB CONC 34.4 g/dL (33.0-35.0); MEAN CORPUSCULAR VOLUME 98.1 fL (80-100); MONOCYTES PERCENT AUTO 6.5 % (2-8); NEUTROPHILS PERCENT AUTO 54.6 % (42.2-75.2); PLATELET COUNT,PLT 301 10^3/uL (150-450); RED BLOOD CELL COUNT 3.76 10^6/uL (4.2-5.4); WHITE BLOOD CELL COUNT,WBC 7.8 10^3/uL (5.0-10.0)
[2023-02-19 19:27] LABS: A/G RATIO 0.84; ALBUMIN 3.6 g/dL (3.4-5.0); ALKALINE PHOSPHATASE 146 U/L (46-116); ANION GAP 16.7 mEq/L (7-13); BILIRUBIN TOTAL 0.4 mg/dL (0.2-1.0); BLOOD UREA NITROGEN,BUN 22 mg/dL (7-18); BUN/CREATININE RATIO 17.7 (No establ ref range); C-REACTIVE PROTEIN 1.2 mg/dL (0.0-0.9); CALCIUM 8.2 mg/dL (8.5-10.1); CARBON DIOXIDE,CO2 23 mmol/L (21-32); CHLORIDE,CL 103 mmol/L (98-107); CREATININE 1.24 mg/dL (0.55-1.02); GLUCOSE RANDOM 192 mg/dL (70-99); MAGNESIUM 1.9 mg/dL (1.8-2.4); POTASSIUM,K 3.7 mmol/L (3.5-5.1); SODIUM,NA 139 mmol/L (136-145)
[2023-02-19 19:37] LABS: ESTIMATED GFR 52 mL/min (>=60); ETHANOL BLOOD MEDICAL < 3 mg/dL (0)
[2023-02-19 19:41] LABS: PTT,PARTIAL THROMBOPLSTIN TIME 24.3 SEC (22.0-34.0)
[2023-02-19 19:48] LABS: AMPHETAMINES,URINE NEGATIVE (NEGATIVE); BARBITURATES,URINE NEGATIVE (NEGATIVE); BENZODIAZEPINE,URINE NEGATIVE (NEGATIVE); MDMA (ECSTASY), URINE NEGATIVE (NEGATIVE); METHADONE,URINE NEGATIVE (NEGATIVE); METHAMPHETAMINES,URINE NEGATIVE (NEGATIVE); OPIATES,URINE NEGATIVE (NEGATIVE); OXYCODONE,URINE NEGATIVE (NEGATIVE); PHENCYCLIDINE,URINE NEGATIVE (NEGATIVE); TCA,URINE NEGATIVE (NEGATIVE)
[2023-02-19 19:59] VITALS: BP 138/84; PULSE 98
[2023-02-19] MEDS ORDERED: Ketorolac 30 MG/ML SDV IVPUSH ONE (20:00)
[2023-02-19] MEDS ORDERED: Metoclopramide 10 MG/2 ML SDV IVPUSH ONE (20:00)
[2023-02-19 20:01] LABS: PROTHROMBIN TIME 10.3 SEC (9.0-12.0)
[2023-02-19 20:13] LABS: ALANINE AMINOTRANSFERASE,ALT < 6 U/L (14-59); ASPARTATE AMNIOTRANSFERASE,AST 8 U/L (15-37)
[2023-02-19 20:44] LABS: PROTEIN TOTAL,TP 6.9 g/dL (6.4-8.2)
[2023-02-19 20:58] LABS: LACTIC ACID 1.7 mmol/L (0.4-2.0)
== END 2023-02-19 20:44 | disposition home or self-care (01) ==
LOC: DL.ED 19:00
DX: G43.909 Migraine, unspecified, not intractable, without status migrainosus (principal); R53.1 Weakness; I25.10 Atherosclerotic heart disease of native coronary artery without angina pectoris; E78.00 Pure hypercholesterolemia, unspecified; I10 Essential (primary) hypertension; I25.2 Old myocardial infarction; J45.909 Unspecified asthma, uncomplicated; Z88.5 Allergy status to narcotic agent; Z88.8 Allergy status to other drugs, medicaments and biological substances
CPT/HCPCS: 36415; 70450; 80053; 80305; 80307; 82947; 83605; 83735; 84484; 85025; 85610; 85730; 86140; 93005; 96374; 96375; 99285; J1885; J2765; J3490

== ENCOUNTER 2024-02-10 05:42 | Day surgery (SDC) | payer MEDICAID ==
[2024-02-10] MEDS ORDERED: Midazolam 1 MG/ML 2 ML SDV IV ONE (05:43)
[2024-02-10] MEDS ORDERED: fentaNYL 100 MCG/2 ML SDV IV ONE (05:43)
[2024-02-10] MEDS ORDERED: fentaNYL 100 MCG/2 ML SDV ONE (06:09)
[2024-02-10] MEDS ORDERED: Midazolam 1 MG/ML 2 ML SDV ONE (06:09)
[2024-02-10] MEDS: Dextrose 5%-0.45% NaCl 1,000 ML IV SCH (06:30)
[2024-02-10] MEDS: fentaNYL 100 MCG/2 ML SDV IV ONE ×2 (06:54→06:55)
[2024-02-10] MEDS: Midazolam 1 MG/ML 2 ML SDV IV ONE ×2 (06:55→06:56)
[2024-02-10 09:13] VITALS: BP 107/69; PULSE 80
== END 2024-02-10 09:00 | disposition home or self-care (01) ==
LOC: DL.ENDO 05:42
PROVIDERS: ATTEND Internal Medicine Gastroenterology
DX: R12 Heartburn (principal); D64.9 Anemia, unspecified; J45.909 Unspecified asthma, uncomplicated; E11.9 Type 2 diabetes mellitus without complications; K21.9 Gastro-esophageal reflux disease without esophagitis; I10 Essential (primary) hypertension; E66.01 Morbid (severe) obesity due to excess calories; E66.09 Other obesity due to excess calories; Z68.41 Body mass index [BMI] 40.0-44.9, adult
CPT/HCPCS: 87077; J2250; J3010; J7042

== ENCOUNTER 2024-02-14 05:25 | Day surgery (SDC) | payer MEDICAID ==
[2024-02-14] MEDS ORDERED: Midazolam 1 MG/ML 2 ML SDV IV ONE (05:26)
[2024-02-14] MEDS ORDERED: fentaNYL 100 MCG/2 ML SDV IV ONE (05:26)
[2024-02-14] MEDS: Dextrose 5%-0.45% NaCl 1,000 ML IV SCH (06:03)
[2024-02-14] MEDS ORDERED: fentaNYL 100 MCG/2 ML SDV ONE (06:12)
[2024-02-14] MEDS ORDERED: Midazolam 1 MG/ML 2 ML SDV ONE (06:12)
[2024-02-14] MEDS: fentaNYL 100 MCG/2 ML SDV IV ONE ×6 (06:22→06:33)
[2024-02-14] MEDS: Midazolam 1 MG/ML 2 ML SDV IV ONE ×6 (06:23→06:34)
[2024-02-14 08:16] VITALS: BP 123/82; PULSE 85
== END 2024-02-14 08:25 | disposition home or self-care (01) ==
LOC: DL.ENDO 05:25
PROVIDERS: ATTEND Internal Medicine Gastroenterology
DX: K57.30 Diverticulosis of large intestine without perforation or abscess without bleeding (principal); K64.8 Other hemorrhoids; K55.20 Angiodysplasia of colon without hemorrhage; D50.9 Iron deficiency anemia, unspecified; I10 Essential (primary) hypertension; E11.9 Type 2 diabetes mellitus without complications; J45.909 Unspecified asthma, uncomplicated; K21.9 Gastro-esophageal reflux disease without esophagitis; G47.00 Insomnia, unspecified; E66.01 Morbid (severe) obesity due to excess calories; G47.33 Obstructive sleep apnea (adult) (pediatric); F41.1 Generalized anxiety disorder; F32.A Depression, unspecified; G89.4 Chronic pain syndrome; E78.5 Hyperlipidemia, unspecified; Z68.41 Body mass index [BMI] 40.0-44.9, adult; Z88.8 Allergy status to other drugs, medicaments and biological substances; Z91.018 Allergy to other foods
CPT/HCPCS: 45378; 82947; J2250; J3010; J7042

== ENCOUNTER 2024-08-14 20:32 | Emergency (ER) | payer MEDICAID ==
[2024-08-14 20:40] VITALS: BP 148/87; PULSE 98
[2024-08-14 21:24] LABS: APPEARANCE,URINE CLEAR (CLEAR); BILIRUBIN,URINE NEGATIVE (NEGATIVE); COLOR,URINE YELLOW (YELLOW); GLUCOSE,URINE NEGATIVE (NEGATIVE); KETONES,URINE NEGATIVE (NEGATIVE); LEUKOCYTE ESTERASE,URINE SMALL (NEGATIVE); NITRITE,URINE NEGATIVE (NEGATIVE); OCCULT BLOOD,URINE TRACE-INTACT (NEGATIVE); PH,URINE 6.5 (5.0-9.0); PROTEIN,URINE NEGATIVE (NEGATIVE); UROBILINOGEN,URINE 0.2 mg/dL (0.2-1.0)
[2024-08-14 21:46] LABS: BASOPHILS PERCENT AUTO 0.3 % (0.0-1.0); EOSINOPHILS PERCENT AUTO 2.3 % (1.0-3.0); HEMATOCRIT 37.7 % (37.0-47.0); LYMPHOCYTES PERCENT AUTO 35.8 % (20.5-50.1); MEAN CORPUSCULAR HEMOGLOBIN 30.5 pg (27.0-34.0); MEAN CORPUSCULAR HGB CONC 31.8 g/dL (33.0-35.0); MEAN CORPUSCULAR VOLUME 95.9 fL (80-100); MONOCYTES PERCENT AUTO 6.9 % (2-8); NEUTROPHILS PERCENT AUTO 54.7 % (42.2-75.2); PLATELET COUNT,PLT 272 10^3/uL (150-450); RED BLOOD CELL COUNT 3.93 10^6/uL (4.2-5.4); WHITE BLOOD CELL COUNT,WBC 7.4 10^3/uL (5.0-10.0)
[2024-08-14 21:51] LABS: BACTERIA,URINE FEW /HPF (0-FEW/HPF); EPITHELIAL CELLS,URINE MODERATE /HPF (NOT SEEN)
[2024-08-14 22:07] LABS: ALBUMIN 3.1 g/dL (3.4-5.0); ANION GAP 13.8 mEq/L (7-13); BILIRUBIN TOTAL 0.3 mg/dL (0.2-1.0); BUN/CREATININE RATIO 16.8 (No establ ref range); CALCIUM 8.9 mg/dL (8.5-10.1); CREATININE 1.07 mg/dL (0.55-1.02); EST CRCL DRUG DOSING (CG) 47.54 mL/min; POTASSIUM,K 3.8 mmol/L (3.5-5.1); PROTEIN TOTAL,TP 7.8 g/dL (6.4-8.2)
[2024-08-14 22:10] LABS: LACTIC ACID 1.2 mmol/L (0.4-2.0)
[2024-08-14 22:11] LABS: A/G RATIO 0.66
== END 2024-08-14 23:48 | disposition home or self-care (01) ==
LOC: DL.ED 20:32
DX: M54.50 Low back pain, unspecified (principal); G89.29 Other chronic pain; I25.10 Atherosclerotic heart disease of native coronary artery without angina pectoris; I25.2 Old myocardial infarction; I10 Essential (primary) hypertension; E78.00 Pure hypercholesterolemia, unspecified; J44.89 Other specified chronic obstructive pulmonary disease; K21.9 Gastro-esophageal reflux disease without esophagitis; M19.90 Unspecified osteoarthritis, unspecified site; E11.9 Type 2 diabetes mellitus without complications; E66.9 Obesity, unspecified; Z86.73 Personal history of transient ischemic attack (TIA), and cerebral infarction without residual deficits; Z90.49 Acquired absence of other specified parts of digestive tract; Z88.8 Allergy status to other drugs, medicaments and biological substances; Z91.018 Allergy to other foods; Z91.048 Other nonmedicinal substance allergy status; Z79.51 Long term (current) use of inhaled steroids; Z79.84 Long term (current) use of oral hypoglycemic drugs; Z79.4 Long term (current) use of insulin; Z79.82 Long term (current) use of aspirin; Z79.899 Other long term (current) drug therapy; Z68.41 Body mass index [BMI] 40.0-44.9, adult
CPT/HCPCS: 36415; 74176; 80053; 81001; 82947; 83605; 85025; 87086; 99284